=== PATIENT | male | born 1940 | race Caucasian/White ===

== ENCOUNTER → 2017-08-05 | Outpatient (CLI) | payer MEDICARE, OTHER | LOC: OD 07:10 | PROVIDERS: ATTEND Ophthalmology | DX: H02.423 Myogenic ptosis of bilateral eyelids (principal) | CPT/HCPCS: 36415 ==

== ENCOUNTER 2017-09-02 15:11 | Emergency (ER) | payer MEDICARE, OTHER ==
[2017-09-02] MEDS ORDERED: TETANUS/DIPHTHERIA TOX-ADULT 0.5 ML SYR (>=7YO) IM ONE (15:59)
--- NOTE | 2017-09-02 16:58 | RADIOLOGY REPORT (SQ) ---
EXAM DESCRIPTION: FOREARM RIGHT COMPLETED DATE/TIME: 09/02/2017 4:48 pm REASON FOR STUDY: fall r RA swelling COMPARISON: None. NUMBER OF VIEWS: Two views. TECHNIQUE: Two radiographic images acquired of the right forearm, including elbow and wrist in at le ast one projection. LIMITATIONS: None. FINDINGS: MINERALIZATION: Normal. BONES: No acute fracture. No worrisome bone lesions. SOFT TISSUES: Soft tissue swelling is identified at the level of the proximal ulna. OTHER: No other significant finding. IMPRESSION: No evidence for acute fracture or dislocation. Other findings as noted above TECHNICAL DOCUMENTATION: JOB ID: [id number] [employer]- All Rights Reserved
--- NOTE | 2017-09-02 16:59 | RADIOLOGY REPORT (SQ) ---
EXAM DESCRIPTION: ELBOW RIGHT OVER 2 VIEWS COMPLETED DATE/TIME: 09/02/2017 4:48 pm REASON FOR STUDY: fall elbow injury COMPARISON: None. NUMBER OF VIEWS: Four views. TECHNIQUE: AP, lateral, and both oblique radiographic images acquired of the right elbow. LIMITATIONS: None. FINDINGS: MINERALIZATION: Normal. BONES: No acute fracture or dislocation. No worrisome bone lesions. JOINT: No effusion. SOFT TISSUES: There is apparent soft tissue swelling at the level of the proximal ulna. OTHER: No other significant finding. IMPRESSION: No evidence for acute fracture dislocation. There is apparent soft tissue swelling at t he level of the proximal ulna. TECHNICAL DOCUMENTATION: JOB ID: [id number] [employer]- All Rights Reserved
--- NOTE | 2017-09-02 17:12 | ER Document Report ---
HPI - HPI Patient complains to provider of: Right elbow abrasion with forearm swelling Onset: Other - 3 days ago Onset/Duration: Persistent Quality of pain: No pain Pain Level: Denies Context: Patient was walking down a stadium step and fell injuring his right elbow. Patient with an abrasion to the elbow. Patient noticed swelling to the forearm which prompted him to come in to be evaluated. Patient denies any significant tenderness. Patient denies any head injury, loss of consciousness, or any other injury. Associated Symptoms: Other - Right elbow abrasion, right forearm swelling Exacerbated by: Denies Relieved by: Denies Similar symptoms previously: No Recently seen / treated by doctor: No - ROS ROS below otherwise negative: Yes Systems Reviewed and Negative: Yes All other systems reviewed and negative - NEURO Neurology: DENIES: Headache, Weakness - CARDIOVASCULAR Cardiovascular: DENIES: Chest pain - RESPIRATORY Respiratory: DENIES: Trouble Breathing, Coughing - DERM Skin Color: Ecchymosis Notes: Abrasion to right elbow Past Medical History - General Information source: Patient - Social History Smoking Status: Former Smoker Frequency of alcohol use: None Drug Abuse: None Occupation: retired Family History: Reviewed & Not Pertinent - Past Medical History Cardiac Medical History: Reports: Hx Hypercholesterolemia, Hx Hypertension Renal/ Medical History: Denies: Hx Peritoneal Dialysis Past Surgical History: Reports: Hx Orthopedic Surgery - right knee scope - Immunizations Hx Diphtheria, Pertussis, Tetanus Vaccination: Yes - updated today Vertical Provider Document - CONSTITUTIONAL Agree With Documented VS: Yes Exam Limitations: No Limitations General Appearance: WD/WN, No Apparent Distress - INFECTION CONTROL TRAVEL OUTSIDE OF THE [place] IN LAST 30 DAYS: No - HEENT HEENT: Atraumatic, Normocephalic - NECK Neck: Normal Inspection - RESPIRATORY Respiratory: Breath Sounds Normal, No Respiratory Distress O2 Sat by Pulse Oximetry: 94 - CARDIOVASCULAR Cardiovascular: Regular Rate, Regular Rhythm Pulses: Normal: Radial - MUSCULOSKELETAL/EXTREMETIES Musculoskeletal/Extremeties: MAEW, Non-Tender, Edema - 1+ edema to right forearm Notes: Patient with skin tear over lateral aspect of right elbow, patient with soft tissue swelling over bilateral olecranon processes, no concern for bursitis - NEURO Level of Consciousness: Awake, Alert, Appropriate Motor/Sensory: No Motor Deficit - DERM Integumentary: Warm, Dry Adult Front & Back Diagram: 1 - Skin tear Course - Re-evaluation Re-evalutation: 09/02/17 18:41 Skin tear partially debrided, patient tolerated well. - Vital Signs Vital signs: Temp Pulse Resp BP Pulse Ox 98.4 F 66 20 163/91 H 94 09/02/17 15:21 09/02/17 15:21 09/02/17 15:21 09/02/17 15:21 09/02/17 15:21 - Diagnostic Test Radiology reviewed: Image reviewed, Reports reviewed Discharge - Discharge Clinical Impression: Forearm swelling Skin tear of elbow without complication Qualifiers: Encounter type: initial encounter Laterality: right Qualified Code(s): S51.011A - Laceration without foreign body of right elbow, initial encounter Arm contusion Qualifiers: Encounter type: initial encounter Laterality: right Qualified Code(s): S40.021A - Contusion of right upper arm, initial encounter Condition: Stable Disposition: HOME, SELF-CARE Instructions: Contusion ([facility]), Skin Tear ([facility]), Tetanus Immunization Given ([facility] ) Additional Instructions: Return immediately for any new or worsening symptoms Followup with your primary care provider, call tomorrow to make a followup appointment Follow-up with orthopedic doctor for any continued pain or problems Referrals: [facility] [Provider Group] - Follow up as needed
[2017-09-02 18:28] VITALS: BP 148/82
== END 2017-09-02 18:28 | disposition home or self-care (01) ==
LOC: ER 15:11
DX: S51.011A Laceration without foreign body of right elbow, initial encounter (principal); S40.021A Contusion of right upper arm, initial encounter; M79.89 Other specified soft tissue disorders; W10.8XXA Fall (on) (from) other stairs and steps, initial encounter; Y92.39 Other specified sports and athletic area as the place of occurrence of the external cause; Z87.891 Personal history of nicotine dependence; I10 Essential (primary) hypertension
CPT/HCPCS: 90714; 99283

== ENCOUNTER 2020-01-16 14:31 | Emergency (ER) | payer MEDICARE, OTHER ==
--- NOTE | 2020-01-16 14:58 | ER Document Report ---
ED Medical Screen (RME) - General Chief Complaint: Rectal Bleeding Stated Complaint: RECTAL BLEEDING Time Seen by Provider: 01/16/20 14:48 Notes: Patient is a 79-year-old male with a history of hypertension high cholesterol presents emergency department with a chief complaint of rectal bleeding. Patient reports that he had a colonoscopy by what he thinks is in a Dr. Moura, and states that he was told he had a polyp. He is unsure if they removed with the polyp. Patient reports that this morning he had 2 loose stools with a scant amount of bright red blood but was mostly black in color. Patient denies use of blood thinners. Patient reports generalized abdominal cramping. Patient denies vomiting. Patient reports his diet has been very bland since the colonoscopy. TRAVEL OUTSIDE OF THE [place] IN LAST 30 DAYS: No - Related Data Allergies/Adverse Reactions: No Known Allergies Allergy (Verified 01/16/20 14:49) Past Medical History - Social History Chew tobacco use (# tins/day): No Frequency of alcohol use: None Drug Abuse: None - Past Medical History Cardiac Medical History: Reports: Hx Hypercholesterolemia, Hx Hypertension Renal/ Medical History: Denies: Hx Peritoneal Dialysis Past Surgical History: Reports: Hx Orthopedic Surgery - right knee scope - Immunizations Hx Diphtheria, Pertussis, Tetanus Vaccination: Yes - updated today Physical Exam - Vital signs Vitals: Temp Pulse Resp BP Pulse Ox 98.1 F 72 18 174/81 H 97 01/16/20 14:38 01/16/20 14:38 01/16/20 14:38 01/16/20 14:38 01/16/20 14:38 - Abdominal Inspection: Normal Distension: No distension Bowel sounds: Normal Tenderness: Nontender Organomegaly: No organomegaly Course - Re-evaluation Re-evalutation: 01/16/20 14:58 In triage patient is not tachycardic, hypotensive. Patient hemodynamically stable, alert and oriented x4. I have greeted and performed a rapid initial assessment of this patient. A comprehensive ED assessment and evaluation of the patient, analysis of test results and completion of the medical decision making process will be conducted by additional ED providers. - Vital Signs Vital signs: Temp Pulse Resp BP Pulse Ox 98.1 F 72 18 174/81 H 97 01/16/20 14:38 01/16/20 14:38 01/16/20 14:38 01/16/20 14:38 01/16/20 14:38
[2020-01-16 15:29] LABS: ABSOLUTE EOSINOPHILS # (AUTO) 0.1 10^3/uL (0.0-0.6); ABSOLUTE LYMPHOCYTES (AUTO) 1.5 10^3/uL (0.5-4.7); ABSOLUTE MONOCYTES (AUTO) 0.5 10^3/uL (0.1-1.4); ABSOLUTE NEUT (AUTO) 4.3 10^3/uL (1.7-8.2); BASOPHILS % (AUTO) 0.5 % (0-2); EOSINOPHILS % (AUTO) 1.9 % (0-6); HEMATOCRIT 40.1 % (37.9-51.0); HEMOGLOBIN 13.3 g/dL (13.5-17.0); LYMPHOCYTES % (AUTO) 23.2 % (13-45); MEAN CORPUSCULAR HEMOGLOBIN 29.9 pg (27.0-33.4); MEAN CORPUSCULAR HGB CONC 33.2 g/dL (32.0-36.0); MEAN CORPUSCULAR VOLUME 90 fl (80-97); MONOCYTES % (AUTO) 8.1 % (3-13); PLATELET COUNT 190 10^3/uL (150-450); RED BLOOD COUNT 4.45 10^6/uL (4.35-5.55); RED CELL DISTRIBUTION WIDTH 13.9 % (11.5-14.0); SEGMENTED NEUTROPHILS % (AUTO) 66.3 % (42-78); TOTAL CELLS COUNTED % (AUTO) 100 %; WHITE BLOOD COUNT 6.5 10^3/uL (4.0-10.5)
[2020-01-16 15:46] LABS: ALBUMIN 4.4 g/dL (3.5-5.0); ALKALINE PHOSPHATASE 60 U/L (38-126); ANION GAP 10 (5-19); ASPARTATE AMINO TRANSFERASE 28 U/L (17-59); BILIRUBIN,DIRECT 0.1 mg/dL (0.0-0.4); BILIRUBIN,TOTAL 1.1 mg/dL (0.2-1.3); BLOOD UREA NITROGEN 17 mg/dL (7-20); CALCIUM 9.7 mg/dL (8.4-10.2); CARBON DIOXIDE 27 mmol/L (22-30); CHLORIDE 104 mmol/L (98-107); GLUCOSE 99 mg/dL (75-110); POTASSIUM 4.3 mmol/L (3.6-5.0); TOTAL PROTEIN 7.7 g/dL (6.3-8.2)
[2020-01-16 15:54] LABS: APPEARANCE,URINE SLIGHTLY-CLOUDY; BILIRUBIN,URINE NEGATIVE (NEGATIVE); COLOR,URINE YELLOW; GLUCOSE, URINE NEGATIVE (NEGATIVE); KETONES,URINE NEGATIVE (NEGATIVE); LEUKOCYTE ESTERASE,URINE NEGATIVE (NEGATIVE); NITRITE,URINE NEGATIVE (NEGATIVE); PROTEIN,URINE NEGATIVE (NEGATIVE); URINE SPECIFIC GRAVITY 1.018; UROBILINOGEN,URINE NEGATIVE mg/dL (<2.0)
--- NOTE | 2020-01-16 18:12 | ER Document Report ---
ED General - General Chief Complaint: Rectal Bleeding Stated Complaint: RECTAL BLEEDING Time Seen by Provider: 01/16/20 14:48 Primary Care Provider: CRISS RICHMOND FNP [Primary Care Provider] - Follow up in 3-5 days KENDELL MARTINEZ MD [ACTIVE STAFF] - Follow up tomorrow (as scheduled) Notes: 79 y/o male presents for one episode of dark stool earlier today. Pt had spotting prior and had colonoscopy on and possibly had a polyp. Pt states he did not have a BM until this morning and noticed it was dark. Pt states he was scheduled for an appointment tomorrow with Dr. Martinez. Pt denies chest pain, dyspnea, dizziness, syncope, presyncope, nausea/vomiting. TRAVEL OUTSIDE OF THE [place] IN LAST 30 DAYS: No - Related Data Allergies/Adverse Reactions: No Known Allergies Allergy (Verified 01/16/20 14:49) Past Medical History - Social History Smoking Status: Former Smoker Chew tobacco use (# tins/day): No Frequency of alcohol use: None Drug Abuse: None Family History: Reviewed & Not Pertinent Patient has suicidal ideation: No Patient has homicidal ideation: No - Past Medical History Cardiac Medical History: Reports: Hx Hypercholesterolemia, Hx Hypertension Renal/ Medical History: Denies: Hx Peritoneal Dialysis Past Surgical History: Reports: Hx Orthopedic Surgery - right knee scope - Immunizations Hx Diphtheria, Pertussis, Tetanus Vaccination: Yes - updated today Physical Exam - Vital signs Vitals: Temp Pulse Resp BP Pulse Ox 98.1 F 72 18 174/81 H 97 01/16/20 14:38 01/16/20 14:38 01/16/20 14:38 01/16/20 14:38 01/16/20 14:38 Course - Re-evaluation Re-evalutation: 01/16/20 Nontoxic well appearing 79 y/o male presents for one episode of dark stool this morning. Pt had colonoscopy on (3 days ago). Pt states he has an appointment with Dr. Martinez tomorrow (GI doctor did colonoscopy). Pt denies any chest pain, dyspnea, syncope, presyncope, dizziness. Abd soft, nontender. PE is otherwise unremarkable. Pt's hemoglobin is 13.3. HCT WNL. Rest of labwork is reassuring. Discussed all results with pt and pt's . Strict return precautions discussed. Pt encouraged to keep appointment with Dr. Martinez tomorrow. Pt voices understanding and agrees with plan of care. - Vital Signs Vital signs: Temp Pulse Resp BP Pulse Ox 98.6 F 72 18 127/66 H 96 01/16/20 18:01 01/16/20 14:38 01/16/20 18:01 01/16/20 18:01 01/16/20 18:01 - Laboratory Result Diagrams: 01/16/20 15:16 01/16/20 15:16 Laboratory results interpreted by me: 01/16/20 01/16/20 01/16/20 15:16 15:16 15:30 Hgb 13.3 L Est GFR (MDRD) Non-Af 58 L Urine Ascorbic Acid 40 H Discharge - Discharge Clinical Impression: Dark stools, hemoglobin 13.3 Condition: Stable Disposition: HOME, SELF-CARE Additional Instructions: Your hemoglobin was 13.3 today. Please follow up with Dr. Martinez as scheduled tomorrow. Return immediately to ER for any worsening symptoms including worsening dark stools, chest pain, shortness of breath, dizziness, feeling like you're going to pass out, passing out, nausea/vomiting, abdominal pain, fever, or any other symptoms that are concerning to you. Referrals: CRISS RICHMOND FNP [Primary Care Provider] - Follow up in 3-5 days KENDELL MARTINEZ MD [ACTIVE STAFF] - Follow up tomorrow (as scheduled)
[2020-01-16 18:36] VITALS: BP 127/66
== END 2020-01-16 19:07 | disposition home or self-care (01) ==
LOC: ER 14:31
DX: R19.5 Other fecal abnormalities (principal); D58.2 Other hemoglobinopathies; K62.5 Hemorrhage of anus and rectum; Z98.890 Other specified postprocedural states; Z87.891 Personal history of nicotine dependence; I10 Essential (primary) hypertension
CPT/HCPCS: 36415; 80053; 81001; 85025; 86850; 86900; 86901; 99283

== ENCOUNTER 2020-01-20 07:45 | Day surgery (SDC) | payer MEDICARE, OTHER ==
[2020-01-20] MEDS ORDERED: PROPOFOL INJ 200 MG/20 ML VIAL IV ONE (08:29)
--- NOTE | 2020-01-20 09:03 | Operative Report ---
Nonrecallable Operative Report DATE OF SURGERY: 01/20/20 PREOPERATIVE DIAGNOSIS: Rectal mass POSTOPERATIVE DIAGNOSIS: Rectal mass, suspicious for cancer. Mass is situated posteriorly, at approximately the 11 o'clock position. It occupies approximately 20% of the circumferential area of the rectum. It is located approximately 4.5 cm from the dentate line. OPERATION: 1. Flexible sigmoidoscopy. 2. Cold biopsy of rectal mass. SURGEON: KENDELL ETIENNE ANESTHESIA: LMAC TISSUE REMOVED OR ALTERED: biopsy of rectal mass COMPLICATIONS: none apparent ESTIMATED BLOOD LOSS: minimal PROCEDURE: After informed consent was obtained, the patient was brought to the endoscopy suite and laid in the left lateral decubitus position. The endoscope was inserted into the rectum. The prep was good. Immediately, there was noted to be a friable mass with a depressed center in the posterior position, approximately 11:00. The mass is consistent with a rectal cancer. The mass was measured to be approximately 4.5 cm from the dentate line. It appears to occupy approximately 20% of the luminal diameter of the rectum. Multiple biopsies were taken of the rectal mass. Air was then suctioned from the rectum, and the scope was removed. The patient tolerated the procedure well. Condition: Stable.
--- NOTE | 2020-01-20 09:04 | Discharge Summary ---
Discharge Summary (SDC) - Discharge Final Diagnosis: Rectal cancer Date of Surgery: 01/20/20 Discharge Date: 01/20/20 Condition: Stable Treatment or Instructions: Discharge home. Diet as tolerated. Activity: Nonstrenuous. Follow-up with me in 7 days. Referrals: CRISS RICHMOND FNP [Primary Care Provider] - Discharge Diet: As Tolerated Respiratory Treatments at Home: Deep Breathing/Coughing, Incentive Spirometer Discharge Activity: Activity As Tolerated, Balance Activity w/Rest Home Care Assistance: None Needed Report the Following to Your Physician Immediately: Shortness of Breath, Nausea, Vomiting, Increase in Pain, Fever over 101 Degrees, Unusual Bleeding, Redness
[2020-01-20 09:28] VITALS: BP 125/73
== END 2020-01-20 09:30 | disposition home or self-care (01) ==
LOC: END 07:45
PROVIDERS: ATTEND Surgery
DX: C20 Malignant neoplasm of rectum (principal); I10 Essential (primary) hypertension; E78.00 Pure hypercholesterolemia, unspecified; Z87.891 Personal history of nicotine dependence; Z79.899 Other long term (current) drug therapy
CPT/HCPCS: 45331; 88305 ×2; 00811; J2704; 811

== ENCOUNTER → 2020-01-25 | Outpatient (CLI) | payer MEDICARE, OTHER ==
--- NOTE | 2020-01-25 13:27 | RADIOLOGY REPORT (SQ) ---
EXAM DESCRIPTION: MRI PELVIS COMBO COMPLETED DATE/TIME: 01/25/2020 REASON FOR STUDY: RECTAL CA (C20) C20 MALIGNANT NEOPLASM OF RECTUM COMPARISON: None. TECHNIQUE: Sagittal, axial oblique, and coronal oblique T2-weighted images of the pelvis without con trast centered on the rectum. Axial images of the pelvis. FINDINGS: BRIEF DESCRIPTION OF MASS: Posterior rectal wall almost circumferential, sparing the anter ior most edge. LOCATION OF TUMOR: Posterior rectal wall, close to the anal rectal junction DISTANCE FROM ANORECTAL JUNCTION TO LOWER POLE OF TUMOR: Less than 5 mm CIRCUMFERENTIAL LOCATION OF TUMOR: Near circumferential, sparing the anterior wall LENGTH OF TUMOR: 3 cm, best shown on sagittal T2 image 16. INVOLVEMENT OF MUSCULARIS PROPIA: No. EXTENSION BEYOND MUSCULARIS PROPIA: Not applicable. DISTANCE BETWEEN TUMOR AND MESORECTAL FASCIA: 2.5 cm PATHOLOGIC LYMPH NODES: Several small lymph nodes are present in the mesial rectal fat as follows: 8 mm lymph node left perirectal fat axial image 16/38 7 mm lymph node left perirectal fat axial image 12/38 7.5 mm right perirectal fat lymph node axial image 15/8 EXTRAMURAL/VASCULAR INVASION: No. DESCRIPTION: Not applicable. INVASION OF PELVIC STRUCTURES: No. DESCRIPTION: Not applicable. There is incidental finding of a 1.9 x 1.4 cm nodule in the peripheral zone of the prostate to the le ft of midline, which is dark on T2, has restricted diffusion, and subtle contrast enhancement. This is worrisome for malignancy in best shown on axial T2 image 16/30. Remainder of the images demonstrates sigmoid colon diverticulosis without acute inflammation. IMPRESSION: T STAGE: T2 Tumor invades but does not penetrate muscularis propria N STAGE: N1 1-3 pathologic lymph nodes TECHNICAL DOCUMENTATION: JOB ID: [id number] 2010 [employer]- All Rights Reserved Reading location - IP/workstation name: [email or web address]
== END ==
LOC: RAD 06:47
PROVIDERS: ATTEND Surgery
DX: C20 Malignant neoplasm of rectum (principal)
CPT/HCPCS: 72197; A9576

== ENCOUNTER → 2020-01-28 | Outpatient (CLI) | payer MEDICARE, OTHER ==
--- NOTE | 2020-01-28 10:07 | RADIOLOGY REPORT (SQ) ---
EXAM DESCRIPTION: CT CHEST WITH COMPLETED DATE/TIME: 01/28/2020 9:31 am REASON FOR STUDY: C20 MALIGNANT NEOPLASM OF RECTUM C20 MALIGNANT NEOPLASM OF RECTUM COMPARISON: None. TECHNIQUE: CT scan of the chest performed using helical scanning technique with dynamic intravenous contrast injection. Images reviewed with lung, soft tissue and bone windows. Reconstructed coronal and sagittal MPR and MIP images reviewed. All images stored on PACS. All CT scanners at this facility use dose modulation, iterative reconstruction, and/or weight based d osing when appropriate to reduce radiation dose to as low as reasonably achievable (ALARA). [facility]: Dose Right [facility]: CareDose [facility]: Dose Right [facility]: Teradose 4D [facility]: Adometry [employer] CONTRAST TYPE AND DOSE: See abdomen RENAL FUNCTION: See abdomen RADIATION DOSE: . LIMITATIONS: None. FINDINGS: LUNGS AND PLEURA: No discrete suspicious nodules or masses. Mild dependent hypoventilator y change. Mild upper lobe centrilobular emphysema. No pleural effusion or pneumothorax. Incidental ly noted azygos fissure. HILAR AND MEDIASTINAL STRUCTURES: No identified masses or abnormal nodes. HEART AND VASCULAR STRUCTURES: No aneurysm or dissection. Scattered aortic atherosclerosis. Heavy t hree-vessel coronary atherosclerosis. Trace pericardial effusion. HARDWARE: None in the chest. UPPER ABDOMEN: See separate report of the CT of the abdomen. THYROID AND OTHER SOFT TISSUES: No masses. No adenopathy. BONES: No significant finding. OTHER: No other significant finding. IMPRESSION: 1. No evidence of intrathoracic metastatic disease. 2. Heavy three-vessel coronary atherosclerosis. Additional chronic findings as above. TECHNICAL DOCUMENTATION: JOB ID: [id number] Quality ID # [id number]: Final reports with documentation of one or more dose reduction techniques (e.g., Au tomated exposure control, adjustment of the mA and/or kV according to patient size, use of iterative reconstruction technique) 2010 [employer]- All Rights Reserved Reading location - IP/workstation name: [email or web address]
--- NOTE | 2020-01-28 10:24 | RADIOLOGY REPORT (SQ) ---
EXAM DESCRIPTION: CT ABD/PELVIS WITH IV ORAL COMPLETED DATE/TIME: 01/28/2020 9:31 am REASON FOR STUDY: C20 MALIGNANT NEOPLASM OF RECTUM C20 MALIGNANT NEOPLASM OF RECTUM COMPARISON: MRI 01/25/2020. TECHNIQUE: CT scan of the abdomen and pelvis performed using helical scanning technique with dynamic intravenous contrast injection. Patient was given oral contrast. Images reviewed with lung, soft ti ssue, and bone windows. Reconstructed coronal and sagittal MPR images reviewed. Delayed images for ev aluation of the urinary system also acquired. All images stored on PACS. All CT scanners at this facility use dose modulation, iterative reconstruction, and/or weight based d osing when appropriate to reduce radiation dose to as low as reasonably achievable (ALARA). [facility]: Dose Right [facility]: CareDose [facility]: Dose Right [facility]: Teradose 4D [facility]: [employer] CONTRAST TYPE AND DOSE: contrast/concentration: Isovue 350.00 mg/ml; Total Contrast Delivered: 86.0 ml; Total Saline Delivered: 69.0 ml RENAL FUNCTION: Creatinine 1.21 RADIATION DOSE: CT Rad equipment meets quality standard of care and radiation dose reduction techniq ues were employed. CTDIvol: 5.4 - 7.0 mGy. DLP: 941 mGy-cm.. LIMITATIONS: None. FINDINGS: LOWER CHEST: See separate report of the CT of the chest. LIVER: Normal size. No masses. Right lobe cyst. No dilated ducts. SPLEEN: Normal size. No focal lesions. PANCREAS: No masses. No significant calcifications. No adjacent inflammation or peripancreatic fluid collections. Pancreatic duct not dilated. GALLBLADDER: No identified stones by CT criteria. No inflammatory changes to suggest cholecystitis. ADRENAL GLANDS: No significant masses or asymmetry. RIGHT KIDNEY AND URETER: No solid masses. Multiple right renal cysts, largest measuring 7.9 cm. No significant calcifications. No hydronephrosis or hydroureter. LEFT KIDNEY AND URETER: No solid masses. No significant calcifications. No hydronephrosis or hydr oureter. AORTA AND VESSELS: Aortoiliac atherosclerosis without aneurysm. No dissection. Renal arteries, SMA, c eliac without stenosis. RETROPERITONEUM: No retroperitoneal adenopathy, hemorrhage or masses. BOWEL AND PERITONEAL CAVITY: Known rectal lesion not well evaluated. Scattered colonic diverticula. No additional focal bowel wall thickening appreciated. No free fluid or intraperitoneal gas. APPENDIX: Normal. PELVIS: Unremarkable urinary bladder. Marked prostatomegaly measuring 7.6 cm transversely. Mild asy mmetric thickening of the left seminal vesicles. No discrete adenopathy. Few perirectal lymph nodes , better evaluated on prior MRI ABDOMINAL WALL: No masses. Fat containing inguinal hernias. BONES: No acute bony abnormality. No suspicious osseous lesions. Lower lumbar facet arthropathy. OTHER: No other significant finding. IMPRESSION: 1. No evidence of metastatic disease within the abdomen or pelvis. Known rectal mass b sharon evaluated on prior MRI. 2. Marked prostatomegaly measuring 7.6 cm with mild asymmetric thickening of the left seminal vesicl es. 3. Additional chronic findings as above. TECHNICAL DOCUMENTATION: JOB ID: [id number] Quality ID # [id number]: Final reports with documentation of one or more dose reduction techniques (e.g., Au tomated exposure control, adjustment of the mA and/or kV according to patient size, use of iterative reconstruction technique) 2010 [employer]- All Rights Reserved Reading location - IP/workstation name: [email or web address]
== END ==
LOC: RAD 08:47
PROVIDERS: ATTEND Surgery
DX: C20 Malignant neoplasm of rectum (principal); I25.10 Atherosclerotic heart disease of native coronary artery without angina pectoris
CPT/HCPCS: 71260; 74177

== ENCOUNTER → 2020-02-08 | Outpatient (CLI) | payer MEDICARE, OTHER ==
--- NOTE | 2020-02-08 13:34 | RADIOLOGY REPORT (SQ) ---
EXAM DESCRIPTION: PET CT SKULL/THIGH COMPLETED DATE/TIME: 02/08/2020 12:38 pm REASON FOR STUDY: (C20)MALIGNANT NEOPLASM OF RECTUM C20 MALIGNANT NEOPLASM OF RECTUM COMPARISON: None. Correlation: CT chest abdomen pelvis 01/28/2020. RADIONUCLIDE AND DOSE: 10.51 mCi F18 FDG The route of agent administration: Intravenous FASTING BLOOD SUGAR: 92 mg/dl CONTRAST TYPE AND DOSE: No CT contrast given. TECHNIQUE: Blood glucose level was verified. Above dose of FDG was injected intravenously. 2-D seg mented attenuation correction images were obtained from the base of the skull to the midthighs. Nonc ontrast CT images were obtained for attenuation correction and fusion with emission images. CT image s were performed without oral or intravenous contrast and are not sensitive for parenchymal lesions. A series of overlapping emission PET images were obtained. Images reviewed and manipulated at [facility] work station by the radiologist. Images stored on PACS. LIMITATIONS: None. FINDINGS: HEAD AND NECK: No areas of abnormal metabolic activity in the soft tissues of the head and neck. CHEST: No areas of abnormal metabolic activity in the chest. ABDOMEN AND PELVIS: Hypermetabolic rectal mass 6.9 SUV. No other hypermetabolic lesions. PROXIMAL LOWER EXTREMITIES: No areas of abnormal metabolic activity in the soft tissues of the lower extremities. BONES: No abnormal metabolic activity in the visualized skeleton. ADDITIONAL CT FINDINGS: See recent CT chest abdomen pelvis. OTHER: Blood pool 1.7 SUV. Liver background 2.3 SUV. IMPRESSION: Hypermetabolic rectal mass. No evidence of metastatic disease. TECHNICAL DOCUMENTATION: JOB ID: [id number] 2010 [employer]- All Rights Reserved Reading location - IP/workstation name: [email or web address]
== END ==
LOC: RAD 08:52
PROVIDERS: ATTEND Internal Medicine
DX: C20 Malignant neoplasm of rectum (principal)
CPT/HCPCS: 78815; A9552

== ENCOUNTER 2020-08-14 11:18 | Observation (INO) | payer MEDICARE, OTHER ==
--- NOTE | 2020-08-14 13:11 | RADIOLOGY REPORT (SQ) ---
EXAM DESCRIPTION: CT HEAD WITHOUT IMAGES COMPLETED DATE/TIME: 08/14/2020 12:47 pm REASON FOR STUDY: AMS COMPARISON: None. TECHNIQUE: Axial images acquired through the brain without intravenous contrast. Images reviewed wi th bone, brain and subdural windows. Additional sagittal and coronal reconstructions were generated. Images stored on PACS. All CT scanners at this facility use dose modulation, iterative reconstruction, and/or weight based d osing when appropriate to reduce radiation dose to as low as reasonably achievable (ALARA). [facility]: Dose Right [facility]: CareDose [facility]: Dose Right [facility]: Teradose 4D [facility]: [employer] RADIATION DOSE: CT Rad equipment meets quality standard of care and radiation dose reduction techniq ues were employed. CTDIvol: 53.2 mGy. DLP: 991 mGy-cm. LIMITATIONS: None. FINDINGS: There is diffuse age-appropriate cerebral and cerebellar volume loss. The caliber of the ventricles is concordant with the degree of sulcation. There is no acute intracranial hemorrhage, va scular territorial infarct, extra-axial fluid collection, mass effect or midline shift. The mayo-whi te matter differentiation is preserved. There is no effacement of the cerebral sulci or basal subarac hnoid cisterns. The polypoid low-attenuation lesion in the floor of the left maxillary sinus could represent a mucous retention cyst. The orbits and globes are intact. There is no fracture of the calvarium. IMPRESSION: No acute intracranial abnormality. EVIDENCE OF ACUTE STROKE: NO. COMMENT: Quality ID # [id number]: Final reports with documentation of one or more dose reduction techniques (e.g., Automated exposure control, adjustment of the mA and/or kV according to patient size, use of iterative reconstruction technique) TECHNICAL DOCUMENTATION: JOB ID: [id number] 2010 [employer]- All Rights Reserved Reading location - IP/workstation name: [email or web address]
--- NOTE | 2020-08-14 13:22 | RADIOLOGY REPORT (SQ) ---
EXAM DESCRIPTION: CHEST 2 VIEWS IMAGES COMPLETED DATE/TIME: 08/14/2020 1:13 pm REASON FOR STUDY: confusion; on chemotherapy COMPARISON: CT of the chest from 01/28/2020. EXAM PARAMETERS: NUMBER OF VIEWS: Two views. TECHNIQUE: PA and lateral views of the chest were obtained. RADIATION DOSE: NA LIMITATIONS: None. FINDINGS: LUNGS AND PLEURA: Variant azygos fissure. There is no consolidation, pleural effusion or pneumothorax. MEDIASTINUM AND HILAR STRUCTURES: No mediastinal or hilar contour abnormality. HEART AND VASCULAR STRUCTURES: The cardiac silhouette and pulmonary vasculature are within normal hannon its. BONES: Dextroconvex curvature of the thoracic spine. HARDWARE: None in the chest. OTHER: No other finding. IMPRESSION: No acute cardiopulmonary process. TECHNICAL DOCUMENTATION: JOB ID: [id number] 2010 [employer]- All Rights Reserved Reading location - IP/workstation name: [email or web address]
[2020-08-14] MEDS ORDERED: NORMAL SALINE 1000 ML 1,000 ML IV ONE (13:43)
[2020-08-14] MEDS ORDERED: MAGNESIUM SULFATE/D5W 1 GM/100 ML RTUPB IV ONE (13:46)
--- NOTE | 2020-08-14 13:46 | ER Document Report ---
ED Medical Screen (RME) - General Chief Complaint: General Weakness Stated Complaint: CONFUSION,ABNORMAL LABS Time Seen by Provider: 08/14/20 12:11 Primary Care Provider: RAZA BASURTO MD [Primary Care Provider] - Follow up as needed Notes: Patient is a 79-year-old male presents emergency department with a chief complaint of confusion. Patient has a chemotherapy patient. According to the son, he has had diarrhea for the past 2 weeks. He started to become confused this past weekend. Exam: Slight confusion noted. I have greeted and performed a rapid initial assessment of this patient. A comprehensive ED assessment and evaluation of the patient, analysis of test results and completion of medical decision making process will be conducted by an additional ED providers. TRAVEL OUTSIDE OF THE [place] IN LAST 30 DAYS: No - Related Data Allergies/Adverse Reactions: No Known Allergies Allergy (Verified 08/14/20 12:13) Home Medications: LISINOPRIL. STATIN. FLOMAX. ZOLPIDEM Past Medical History - Social History Chew tobacco use (# tins/day): No Frequency of alcohol use: None Drug Abuse: None - Past Medical History Cardiac Medical History: Reports: Hx Hypercholesterolemia, Hx Hypertension Denies: Hx Coronary Artery Disease, Hx Heart Attack Pulmonary Medical History: Denies: Hx Asthma, Hx Bronchitis, Hx COPD, Hx Pneumonia Neurological Medical History: Denies: Hx Cerebrovascular Accident, Hx Seizures Renal/ Medical History: Denies: Hx Peritoneal Dialysis Musculoskeltal Medical History: Denies Hx Arthritis Past Surgical History: Reports: Hx Orthopedic Surgery - right knee scope - Immunizations Hx Diphtheria, Pertussis, Tetanus Vaccination: Yes - updated today Physical Exam - Vital signs Vitals: Temp Pulse Resp BP Pulse Ox 98.2 F 88 18 111/77 95 08/14/20 11:32 08/14/20 11:32 08/14/20 11:32 08/14/20 11:32 08/14/20 11:32 Course - Vital Signs Vital signs: Temp Pulse Resp BP Pulse Ox 98.2 F 88 18 111/77 95 08/14/20 12:13 08/14/20 11:32 08/14/20 11:32 08/14/20 11:32 08/14/20 11:32 Doctor's Discharge - Discharge Referrals: RAZA BASURTO MD [Primary Care Provider] - Follow up as needed
[2020-08-14 14:54] LABS: HEMOGLOBIN 12.7 g/dL (13.5-17.0); MEAN CORPUSCULAR HEMOGLOBIN 31.7 pg (27.0-33.4); MEAN CORPUSCULAR HGB CONC 34.3 g/dL (32.0-36.0); MEAN CORPUSCULAR VOLUME 92 fl (80-97); RED BLOOD COUNT 4.01 10^6/uL (4.35-5.55); RED CELL DISTRIBUTION WIDTH 13.7 % (11.5-14.0)
[2020-08-14 15:11] LABS: ALBUMIN 3.6 g/dL (3.5-5.0); ALKALINE PHOSPHATASE 61 U/L (38-126); ANION GAP 12 (5-19); ASPARTATE AMINO TRANSFERASE 36 U/L (17-59); BILIRUBIN,DIRECT 0.4 mg/dL (0.0-0.4); BILIRUBIN,TOTAL 1.8 mg/dL (0.2-1.3); BLOOD UREA NITROGEN 33 mg/dL (7-20); CALCIUM 9.3 mg/dL (8.4-10.2); CARBON DIOXIDE 22 mmol/L (22-30); CHLORIDE 107 mmol/L (98-107); GLUCOSE 124 mg/dL (75-110); TOTAL PROTEIN 6.3 g/dL (6.3-8.2)
[2020-08-14 15:12] LABS: POTASSIUM 3.1 mmol/L (3.6-5.0)
[2020-08-14 15:16] LABS: ABSOLUTE LYMPHOCYTES# (MANUAL) 0.3 10^3/uL (0.5-4.7); ABSOLUTE MONOCYTES # (MANUAL) 1.1 10^3/uL (0.1-1.4); BASOPHILS % (MANUAL) 0 % (0-2); EOSINOPHILS % (MANUAL) 0 % (0-6); LYMPHOCYTES % (MANUAL) 8 % (13-45); SEGMENTED NEUTROPHILS % (MAN) 65 % (42-78); TOTAL CELLS COUNTED 100
[2020-08-14 15:20] LABS: PLATELET COMMENT ADEQUATE
[2020-08-14 15:23] LABS: PLATELET COUNT 126 10^3/uL (150-450)
[2020-08-14 15:28] LABS: MONOCYTES % (MANUAL) 27 % (3-13)
[2020-08-14] MEDS: POTASSI CL 20 MEQ/50 ML RIDER 20 MEQ/50 ML RTUPB IV SCH ×2 (15:31→17:34)
--- NOTE | 2020-08-14 15:59 | ER Document Report ---
ED General - General Chief Complaint: General Weakness Stated Complaint: CONFUSION,ABNORMAL LABS Time Seen by Provider: 08/14/20 12:11 Primary Care Provider: RAZA BASURTO MD [ACTIVE STAFF] - Follow up as needed Mode of Arrival: Ambulatory Information source: Patient TRAVEL OUTSIDE OF THE [place] IN LAST 30 DAYS: No - HPI Notes: Patient presents complaining of weakness. According to reports of the son who is in the room patient woke up this morning and was confused. He apparently thought he heard an intruder and had a gun. At that time the was called. was able to talk the patient down and have him give up the gun. then called the patient's son who brought the patient to the emergency department. Patient states he does not feel that he was confused and that he remembers being awake and feeling weak. He states he thought that he heard an intruder which is why he pulled the gun. The entire story is somewhat difficult to piece together. There was apparently some confusion on the patient's part which is why he was brought to the hospital. Patient states that he no longer feels confused and the son who is in the room states that his father is no longer acting confused. The son states that initially he took the patient to the oncologist office this morning where some laboratories were done and then the patient was instructed to come to the hospital. I did call and speak with the patient's oncologist who states that according to the laboratories that were done at his office the patient appears dehydrated, the patient has not been eating or drinking well the last couple of days, and the patient has chronic diarrhea that is been acutely exacerbated by a recent chemo administration. The primary oncologist felt the patient need to be admitted for rehydration. Patient symptoms of confusion and dehydration appear to have been intermittent. Nothing appears to have made them significantly better or worse. Obviously the symptoms of confusion did not radiate. They appear to have been moderate to severe. - Related Data Allergies/Adverse Reactions: No Known Allergies Allergy (Verified 08/14/20 12:13) Home Medications: LISINOPRIL. STATIN. FLOMAX. ZOLPIDEM Past Medical History - General Information source: Patient - Social History Smoking Status: Former Smoker Chew tobacco use (# tins/day): No Frequency of alcohol use: None Drug Abuse: None Family History: Reviewed & Not Pertinent Patient has homicidal ideation: No - Past Medical History Cardiac Medical History: Reports: Hx Hypercholesterolemia, Hx Hypertension Denies: Hx Coronary Artery Disease, Hx Heart Attack Pulmonary Medical History: Denies: Hx Asthma, Hx Bronchitis, Hx COPD, Hx Pneumonia Neurological Medical History: Denies: Hx Cerebrovascular Accident, Hx Seizures Renal/ Medical History: Denies: Hx Peritoneal Dialysis Musculoskeletal Medical History: Denies Hx Arthritis Past Surgical History: Reports: Hx Orthopedic Surgery - right knee scope - Immunizations Hx Diphtheria, Pertussis, Tetanus Vaccination: Yes - updated today Review of Systems - Review of Systems Constitutional: denies: Chills, Fever Cardiovascular: denies: Chest pain, Palpitations Respiratory: denies: Cough, Short of breath -: Yes All other systems reviewed and negative Physical Exam - Vital signs Vitals: Temp Pulse Resp BP Pulse Ox 98.2 F 88 18 111/77 95 08/14/20 11:32 08/14/20 11:32 08/14/20 11:32 08/14/20 11:32 08/14/20 11:32 Interpretation: Normal - General General appearance: Appears well, Alert - HEENT Head: Normocephalic, Atraumatic Eyes: Normal Pupils: PERRL - Respiratory Respiratory status: No respiratory distress Chest status: Nontender Breath sounds: Normal Chest palpation: Normal - Cardiovascular Rhythm: Regular Heart sounds: Normal auscultation Murmur: No - Abdominal Inspection: Normal Distension: No distension Bowel sounds: Normal Tenderness: Nontender Organomegaly: No organomegaly - Back Back: Normal, Nontender - Extremities General upper extremity: Normal inspection, Nontender, Normal color, Normal ROM, Normal temperature General lower extremity: Normal inspection, Nontender, Normal color, Normal ROM, Normal temperature, Normal weight bearing. No: Rneay's sign - Neurological Neuro grossly intact: Yes Cognition: Normal Orientation: AAOx4 Reynaldo Coma Scale Eye Opening: Spontaneous Reynaldo Coma Scale Verbal: Oriented Reynaldo Coma Scale Motor: Obeys Commands [place] Coma Scale Total: 15 Speech: Normal Cranial nerves: Normal Cerebellar coordination: Normal Motor strength normal: LUE, RUE, LLE, RLE Sensory: Normal - Psychological Associated symptoms: Normal affect, Normal mood - Skin Skin Temperature: Warm Skin Moisture: Dry Skin Color: Normal Course - Re-evaluation Re-evalutation: 08/14/20 16:02 Patient presents with some confusion and altered mental status most likely secondary to dehydration. He appears to have had significant resolution of symptoms but still remains dehydrated. In discussion with the patient's primary oncologist it is felt the patient would be best served by admission for rehydration and electrolyte replacement. - Vital Signs Vital signs: Temp Pulse Resp BP Pulse Ox 98.2 F 88 18 111/77 93 08/14/20 12:13 08/14/20 11:32 08/14/20 11:32 08/14/20 11:32 08/14/20 14:11 - Laboratory Result Diagrams: 08/14/20 14:30 08/14/20 14:30 Laboratory results interpreted by me: 08/14/20 08/14/20 14:30 14:30 RBC 4.01 L Hgb 12.7 L Hct 37.0 L Plt Count 126 L Lymphocytes % (Manual) 8 L Monocytes % (Manual) 27 H Abs Lymphs (Manual) 0.3 L Potassium 3.1 L BUN 33 H Creatinine 1.87 H Est GFR ( Amer) 42 L Est GFR (MDRD) Non-Af 35 L Glucose 124 H Total Bilirubin 1.8 H - Diagnostic Test Radiology reviewed: Image reviewed, Reports reviewed - EKG Interpretation by Me Rate: Normal - 70 Rhythm: PVC's, Other - WAP When compared to previous EKG there are: Changes noted Discharge - Discharge Clinical Impression: Confusion, Dehydration, Hypokalemia, Hypomagnesemia Condition: Serious Disposition: ADMITTED INPATIENT Admitting Provider: Dl (Hospitalist) Unit Admitted: Telemetry Referrals: RAZA BASURTO MD [ACTIVE STAFF] - Follow up as needed
[2020-08-14 16:02] LABS: INTERNATIONAL RATION (INR) 1.34; PROTHROMBIN TIME 16.7 SEC (11.4-15.4)
[2020-08-14 16:03] LABS: PARTIAL THROMBOPLASTIN TIME 32.3 SEC (23.5-35.8)
[2020-08-14] MEDS ORDERED: ACETAMINOPHEN 325 MG TABLET PO PRN (17:09)
[2020-08-14] MEDS ORDERED: MAG HYDROX/AL HYDROX/SIMETH SUSP 30 ML UDCUP PO PRN (17:09)
[2020-08-14] MEDS ORDERED: ONDANSETRON HCL INJ/PF 4 MG/2 ML SDV IV PRN (17:09)
[2020-08-14] MEDS ORDERED: POTASSIUM CHLORIDE 10 MEQ TABLET.ER PO ONE (17:30)
[2020-08-14] MEDS: RINGERS SOLUTION,LACTATED 1,000 ML IV PRN (17:34)
[2020-08-14] MEDS ORDERED: MORPHINE SULFATE 10 MG/ML INJ IV PRN (17:45)
[2020-08-14 17:47] LABS: APPEARANCE,URINE SLIGHTLY-CLOUDY; BILIRUBIN,URINE NEGATIVE (NEGATIVE); COLOR,URINE AMBER; GLUCOSE, URINE NEGATIVE (NEGATIVE); KETONES,URINE NEGATIVE (NEGATIVE); PROTEIN,URINE 30 mg/dL (NEGATIVE); URINE SPECIFIC GRAVITY 1.024; UROBILINOGEN,URINE NEGATIVE mg/dL (<2.0)
--- NOTE | 2020-08-14 17:49 | PDOC H&P ---
History of Present Illness Admission Date/PCP: 08/14/20 16:23 JOCELYNE MCDERMOTT PA-C Patient complains of: Abnormal labs History of Present Illness: LING DENNIS is a 79 year old male with colorectal cancer currently on chemo, who presents to the hospital on referral from the oncology clinic for evaluation of abnormal labs and dehydration. Notably this morning, patient states he heard some voices in the living room, he went out to the living room and saw that his at on the TV up loud. Went back to his room and later noted that he was hearing a man and a woman's voice outside. He grabbed his gun and went to confront the person and realized that he was the college or university business manager. He was talked down by the college or university business manager and then his son was notified. He was taken to the oncology clinic for his appointment and labs that were abnormal showing low potassium and elevated renal function. Subsequently sent to the ER for IV fluid hydration. On discussion with patient, patient states that he has been having several bouts of diarrhea up to 5 times a day and has been having decreased appetite. He has not wanted to eat much due to the diarrhea. He also does get some epigastric pain. He denies any fever or chills. Past Medical History Cardiac Medical History: Reports: Hyperlipidema, Hypertension Denies: Coronary Artery Disease, Myocardial Infarction Pulmonary Medical History: Denies: Asthma, Bronchitis, Chronic Obstructive Pulmonary Disease (COPD), Pneumonia Neurological Medical History: Denies: Seizures Musculoskeltal Medical History: Denies: Arthritis Hematology: Denies: Anemia Past Surgical History Past Surgical History: Reports: Orthopedic Surgery - right knee scope Social History Information Source: Patient Smoking Status: Former Smoker Electronic Cigarette use?: No Frequency of Alcohol Use: None Hx Recreational Drug Use: No Hx Prescription Drug Abuse: No - Advance Directive Resuscitation Status: Full Code Family History Family History: Reviewed & Not Pertinent, Hypertension Parental Family History Reviewed: Yes Children Family History Reviewed: NA Sibling(s) Family History Reviewed.: NA Medication/Allergy Home Medications: Lisinopril 5 mg PO DAILY 04/25/13 Multivitamin [Multiple Vitamins] 1 each PO DAILY 04/25/13 Rosuvastatin Calcium [Crestor 10 mg Tablet] 10 mg PO QHS 04/25/13 Allergies/Adverse Reactions: No Known Allergies Allergy (Verified 08/14/20 12:13) Review of Systems Constitutional: ABSENT: fatigue, fever(s) Eyes: ABSENT: visual disturbances Ears: ABSENT: hearing changes Nose, Mouth, and Throat: ABSENT: headache(s) Cardiovascular: ABSENT: chest pain Respiratory: ABSENT: dyspnea Gastrointestinal: PRESENT: abdominal pain, diarrhea, nausea. ABSENT: constipation, vomiting Genitourinary: ABSENT: dysuria Musculoskeletal: ABSENT: back pain Integumentary: ABSENT: diaphoresis Neurological: PRESENT: dizziness Endocrine: ABSENT: polyuria Physical Exam Vital Signs: Temp Pulse Resp BP Pulse Ox 98.2 F 88 13 137/76 H 98 08/14/20 12:13 08/14/20 11:32 08/14/20 16:10 08/14/20 16:10 08/14/20 16:10 Intake & Output 08/13/20 08/14/20 08/15/20 06:59 06:59 06:59 Weight 67.132 kg General appearance: PRESENT: no acute distress, cooperative Head exam: PRESENT: normocephalic Eye exam: PRESENT: EOMI, PERRLA. ABSENT: scleral icterus Neck exam: ABSENT: JVD Respiratory exam: PRESENT: clear to auscultation darvin, symmetrical, unlabored. ABSENT: tachypnea, wheezes Cardiovascular exam: PRESENT: RRR, +S1, +S2. ABSENT: tachycardia GI/Abdominal exam: PRESENT: soft. ABSENT: rebound, rigid, tenderness Extremities exam: ABSENT: calf tenderness, pedal edema Neurological exam: PRESENT: alert, awake, oriented to person, oriented to place, oriented to time, oriented to situation Psychiatric exam: PRESENT: appropriate affect. ABSENT: agitated, anxious, depressed, unusual affect Focused psych exam: ABSENT: flight of ideas, internal stimuli, pressured speech, psychomotor agitation Skin exam: ABSENT: jaundice Results Laboratory Results: 08/14/20 14:30 08/14/20 14:30 08/14/20 08/14/20 08/14/20 14:30 14:30 14:30 WBC 4.0 RBC 4.01 L Hgb 12.7 L Hct 37.0 L MCV 92 MCH 31.7 MCHC 34.3 RDW 13.7 Plt Count 126 L Seg Neutrophils % Not Reportable Sodium 141.4 Potassium 3.1 L Chloride 107 Carbon Dioxide 22 Anion Gap 12 BUN 33 H Creatinine 1.87 H Est GFR ( Amer) 42 L Glucose 124 H Calcium 9.3 Magnesium 1.9 Total Bilirubin 1.8 H AST 36 Alkaline Phosphatase 61 Total Protein 6.3 Albumin 3.6 Impressions: Chest X-Ray 08/14/20 12:21 IMPRESSION: No acute cardiopulmonary process. Head CT 08/14/20 12:22 IMPRESSION: No acute intracranial abnormality. EVIDENCE OF ACUTE STROKE: NO. Assessment and Plan - Diagnosis (1) LUCIA (acute kidney injury) Is this a current diagnosis for this admission?: Yes Plan: We will give IV fluids and recheck BMP in the morning. Creatinine is 1.8 today. Suspect is secondary to dehydration. (2) Diarrhea Qualifiers: Diarrhea type: unspecified type Qualified Code(s): R19.7 - Diarrhea, unspecified Is this a current diagnosis for this admission?: Yes Plan: We will cheCK stool analysis and C. difficile. This may be functional secondary to chemotherapy. IV fluids. (3) Hypokalemia Is this a current diagnosis for this admission?: Yes Plan: Replete with KCl IV and p.o. recheck levels (4) Colorectal cancer, stage I Is this a current diagnosis for this admission?: Yes Plan: Patient once he has history of stage I colorectal cancer diagnosed earlier this year in January. Opted for chemotherapy as opposed to surgical resection. Received radiation earlier in the year and currently receiving chemo. Last regimen of chemo was last week. Follows with Dr. Ambriz who has been consulted. Patient encouraged on good nutritional intake. Dietitian will be consulted as well Pain control as needed. - Time Time Spent with patient: 35 or more minutes Anticipated Discharge Disposition: Home, Self Care Anticipated Discharge Timeframe: within 48 hours
--- NOTE | 2020-08-14 17:50 | EKG REPORT ---
SEVERITY:- ABNORMAL ECG - SINUS RHYTHM NONSPECIFIC T ABNORMALITIES, INFERIOR LEADS : Confirmed by: Elton Ch MD 14-Aug-2020 17:50:09
[2020-08-14 20:55] LABS: C DIFFICILE GDH NEGATIVE (NEGATIVE)
[2020-08-14] MEDS: HEPARIN SOD (PORCINE) 5,000 UNIT/ML 1 ML VIAL SUBCUT SCH (21:12)
[2020-08-14] MEDS: FAMOTIDINE INJ/PF 20 MG/2 ML SDV IV SCH (21:42)
[2020-08-14] MEDS ORDERED: LISINOPRIL 10 MG TABLET PO ONE (22:15)
[2020-08-14] MEDS: ZOLPIDEM TARTRATE 5 MG TABLET PO PRN (22:46)
[2020-08-14] MEDS: ATORVASTATIN CALCIUM 20 MG TABLET PO SCH (22:46)
[2020-08-15] MEDS: HEPARIN SOD (PORCINE) 5,000 UNIT/ML 1 ML VIAL SUBCUT SCH ×3 (05:32→21:35)
[2020-08-15] MEDS: RINGERS SOLUTION,LACTATED 1,000 ML IV PRN ×2 (05:32→18:30)
[2020-08-15 07:24] LABS: ANION GAP 8 (5-19); BLOOD UREA NITROGEN 23 mg/dL (7-20); CALCIUM 8.4 mg/dL (8.4-10.2); CARBON DIOXIDE 20 mmol/L (22-30); CHLORIDE 112 mmol/L (98-107); GLUCOSE 114 mg/dL (75-110); PHOSPHORUS 1.9 mg/dL (2.5-4.5); POTASSIUM 3.3 mmol/L (3.6-5.0)
--- NOTE | 2020-08-15 08:09 | PDOC CONSULTATION ---
Consultation Consult Date: 08/15/20 Attending physician:: BUCK MEJÍA Provider Consulted: RAZA BASURTO Consult reason:: Patient with stage II rectal cancer on neoadjuvant chemotherapy History of Present Illness Admission Date/PCP: 08/14/20 16:23 JOCELYNE MCDERMOTT PA-C Patient complains of: Diarrhea, weakness, confusion History of Present Illness: LING DENNIS is a 79 year old male with known history of stage II rectal cancer status post concurrent chemoradiation, and thereafter was supposed to go towards APR surgery at [facility], but ultimately decided against surgery and we are giving him a total neoadjuvant chemotherapy approach. To that extent, he has gotten 2 cycles of chemotherapy with XELOX chemotherapy. The first cycle was complicated with severe diarrhea, but we were able to manage that as an outpatient with aggressive hydration, he had dose reduced the oral Xeloda for the second cycle which was started about 2 weeks ago, but unfortunately again had severe diarrhea. Diarrhea was ongoing for almost 2 weeks now, he really did not call us telling us that it was getting worse, ultimately his son came to check on him and he was confused unable to get out of the chair, and we instructed him to to come to our office, he was seen in our office and was weak, unable to get out of a wheelchair, confused, and in acute renal failure. We sent him to the ED for admission. Upon admission to the ED his creatinine was 1 .9, BUN was elevated also, and he was very weak. He was given aggressive hydration through the night, and looks much better today. However he still seems slightly confused, and unsteady on his feet. Past Medical History Cardiac Medical History: Reports: Hyperlipidema, Hypertension Denies: Coronary Artery Disease, Myocardial Infarction Pulmonary Medical History: Denies: Asthma, Bronchitis, Chronic Obstructive Pulmonary Disease (COPD), Pneumonia Neurological Medical History: Denies: Seizures Malignancy Medical History: Reports: Colorectal Cancer Musculoskeltal Medical History: Denies: Arthritis Psychiatric Medical History: Denies: Depression Hematology: Denies: Anemia Past Surgical History Past Surgical History: Reports: Orthopedic Surgery - right knee scope Social History Information Source: Patient Smoking Status: Former Smoker Electronic Cigarette use?: No Frequency of Alcohol Use: None Hx Recreational Drug Use: No Hx Prescription Drug Abuse: No - Advance Directive Resuscitation Status: Full Code Family History Family History: Reviewed & Not Pertinent, Hypertension Parental Family History Reviewed: Yes Children Family History Reviewed: Yes Sibling(s) Family History Reviewed.: Yes Medication/Allergy Home Medications: Multivitamin [Multiple Vitamins] 1 each PO DAILY 04/25/13 Rosuvastatin Calcium [Crestor 10 mg Tablet] 10 mg PO QPM 04/25/13 Lisinopril 20 mg PO QPM 08/14/20 Potassium Chloride 20 meq PO QPM 08/14/20 Tamsulosin HCl [Flomax 0.4 mg Cap.sr] 0.4 mg PO DAILY 08/14/20 Vit A/Vit C/Vit E/Zinc/Copper [Preservision Areds Tablet] 1 each PO BID 08/14/20 Zolpidem Tartrate [Ambien] 10 mg PO QHS 08/14/20 Allergies/Adverse Reactions: No Known Allergies Allergy (Verified 08/14/20 12:13) Review of Systems Constitutional: PRESENT: anorexia, fatigue, weakness Cardiovascular: ABSENT: chest pain, dyspnea on exertion, edema, orthropnea, palpitations Gastrointestinal: PRESENT: bloating, diarrhea, nausea Genitourinary: ABSENT: dysuria, hematuria Integumentary: ABSENT: rash, wounds Neurological: PRESENT: confusion, weakness Physical Exam Vital Signs: Temp Pulse Resp BP Pulse Ox 98 F 66 16 122/68 96 08/15/20 00:11 08/15/20 00:11 08/15/20 00:11 08/15/20 00:11 08/15/20 00:11 Intake & Output 08/14/20 08/15/20 08/16/20 06:59 06:59 06:59 Intake Total 2150 Balance 2150 Weight 67.6 kg General appearance: PRESENT: no acute distress, well-developed, well-nourished Head exam: PRESENT: atraumatic, normocephalic Eye exam: PRESENT: conjunctiva pink, EOMI, PERRLA. ABSENT: scleral icterus Ear exam: PRESENT: normal external ear exam Mouth exam: PRESENT: moist, tongue midline Neck exam: ABSENT: carotid bruit, JVD, lymphadenopathy, thyromegaly Respiratory exam: PRESENT: clear to auscultation darvin. ABSENT: rales, rhonchi, wheezes Cardiovascular exam: PRESENT: RRR. ABSENT: diastolic murmur, rubs, systolic murmur Pulses: PRESENT: normal dorsalis pedis pul Vascular exam: PRESENT: normal capillary refill GI/Abdominal exam: PRESENT: normal bowel sounds, soft. ABSENT: distended, g uarding, mass, organolmegaly, rebound, tenderness Rectal exam: PRESENT: deferred Extremities exam: PRESENT: full ROM. ABSENT: calf tenderness, clubbing, pedal edema Neurological exam: PRESENT: alert, awake, oriented to person, oriented to place, oriented to time, oriented to situation, CN II-XII grossly intact. ABSENT: mo tor sensory deficit Psychiatric exam: PRESENT: appropriate affect, normal mood. ABSENT: homicidal ideation, suicidal ideation Skin exam: PRESENT: dry, intact, warm. ABSENT: cyanosis, rash Results Laboratory Results: 08/14/20 14:30 08/15/20 05:02 08/14/20 08/14/20 08/14/20 14:30 14:30 14:30 WBC 4.0 RBC 4.01 L Hgb 12.7 L Hct 37.0 L MCV 92 MCH 31.7 MCHC 34.3 RDW 13.7 Plt Count 126 L Seg Neutrophils % Not Reportable Sodium 141.4 Potassium 3.1 L Chloride 107 Carbon Dioxide 22 Anion Gap 12 BUN 33 H Creatinine 1.87 H Est GFR ( Amer) 42 L Glucose 124 H Calcium 9.3 Phosphorus Magnesium 1.9 Total Bilirubin 1.8 H AST 36 Alkaline Phosphatase 61 Total Protein 6.3 Albumin 3.6 Urine Color Urine Appearance Urine pH Ur Specific [place] Urine Protein Urine Glucose (UA) Urine Ketones Urine Blood Urine RBC (Auto) Stool for White Cells 08/14/20 08/14/20 08/15/20 16:50 16:55 05:02 WBC RBC Hgb Hct MCV MCH MCHC RDW Plt Count Seg Neutrophils % Sodium 140.2 Potassium 3.3 L Chloride 112 H Carbon Dioxide 20 L Anion Gap 8 BUN 23 H Creatinine 1.21 Est GFR ( Amer) > 60 Glucose 114 H Calcium 8.4 Phosphorus 1.9 L Magnesium 1.9 Total Bilirubin AST Alkaline Phosphatase Total Protein Albumin Urine Color JAIDA Urine Appearance SLIGHTLY-CLOUDY Urine pH 5.0 Ur Specific [place] 1.024 Urine Protein 30 H Urine Glucose (UA) NEGATIVE Urine Ketones NEGATIVE Urine Blood SMALL H Urine RBC (Auto) 2 Stool for White Cells NO WBCs SEEN Impressions: Chest X-Ray 08/14/20 12:21 IMPRESSION: No acute cardiopulmonary process. Head CT 08/14/20 12:22 IMPRESSION: No acute intracranial abnormality. EVIDENCE OF ACUTE STROKE: NO. 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 Continue with aggressive hydration for at least 24 more hours but probably 48 more hours. (2) Dehydration Is this a current diagnosis for this admission?: Yes Plan: Secondary to the oral Xeloda causing diarrhea, continue with aggressive hydration (3) Confusion Is this a current diagnosis for this admission?: Yes Plan: Secondary to dehydration, improved today (4) LUCIA (acute kidney injury) Is this a current diagnosis for this admission?: Yes Plan: Pre-renal azotemia secondary to dehydration from diarrhea and poor p.o. intake, continue with hydration and should hopefully return to baseline (5) Rectal adenocarcinoma Is this a current diagnosis for this admission?: Yes Plan: Stage II rectal cancer, receiving total neoadjuvant chemotherapy. Holding all therapy for now. Continue hydration until patient returns to baseline. - Time Time Spent: Greater than 70 Minutes - Inpatient Certification Based on my medical assessment, after consideration of the patient's comorbidities, presenting symptoms, or acuity I expect that the services needed warrant INPATIENT care.: Yes I certify that my determination is in accordance with my understanding of Medicare's requirements for reasonable and necessary INPATIENT services [42 CFR 412.3e].: Yes Medical Necessity: Need For IV Fluids, Risk of Complication if Not Cared For in Hospital
[2020-08-15] MEDS: TAMSULOSIN HCL 0.4 MG CAP.SR.24H PO SCH (09:54)
[2020-08-15] MEDS: MULTIVITAMIN TABLET PO SCH (09:54)
[2020-08-15] MEDS: FAMOTIDINE INJ/PF 20 MG/2 ML SDV IV SCH ×2 (09:54→22:06)
[2020-08-15 12:55] LABS: PATH REVIEW PATHOLOGIST REVIEWED
--- NOTE | 2020-08-15 12:55 | PDOC PROGRESS REPORT ---
Subjective Progress Note for:: 08/15/20 Subjective:: She is still having diarrhea. He will occasionally have some fecal incontinence with it. He denies abdominal pain. He still feels quite weak. BUN and creatinine are improved. He does have ongoing hiccups since he ate. Reason For Visit: DEHYDRATION, LUCIA Physical Exam Vital Signs: Temp Pulse Resp BP Pulse Ox 98.4 F 70 18 137/70 H 97 08/15/20 10:00 08/15/20 08:13 08/15/20 08:13 08/15/20 08:13 08/15/20 08:13 Intake & Output 08/14/20 08/15/20 08/16/20 06:59 06:59 06:59 Intake Total 2150 Balance 2150 Weight 67.6 kg General appearance: PRESENT: cooperative, mild distress, well-developed. ABSENT: disheveled Head exam: PRESENT: atraumatic, normocephalic Ear exam: PRESENT: normal external ear exam. ABSENT: drainage Mouth exam: PRESENT: moist, tongue midline Neck exam: PRESENT: full ROM. ABSENT: carotid bruit, JVD, tracheostomy Respiratory exam: PRESENT: clear to auscultation darvin, symmetrical, unlabored. ABSENT: accessory muscle use, prolonged expiratory phas, rales, rhonchi, tachypnea, wheezes Cardiovascular exam: PRESENT: RRR, +S1, +S2. ABSENT: bradycardia, diastolic murmur, irregular rhythm, systolic murmur, tachycardia GI/Abdominal exam: PRESENT: hypoactive bowel sounds, soft. ABSENT: distended, guarding, tenderness Rectal exam: PRESENT: deferred Gentrourinary exam: ABSENT: indwelling catheter Extremities exam: ABSENT: calf tenderness, pedal edema Musculoskeletal exam: PRESENT: ambulatory, normal inspection. ABSENT: deformity, dislocation Neurological exam: PRESENT: alert, awake, oriented to person, oriented to place, oriented to time, oriented to situation, CN II-XII grossly intact - Wears eyeglasses. ABSENT: altered Psychiatric exam: PRESENT: flat affect. ABSENT: agitated, anxious Focused psych exam: ABSENT: delusional, paranoid, restlessness Skin exam: PRESENT: dry, normal color, warm. ABSENT: cyanosis, rash Results Laboratory Results: 08/14/20 14:30 08/15/20 05:02 08/14/20 08/14/20 08/14/20 14:30 14:30 14:30 WBC 4.0 RBC 4.01 L Hgb 12.7 L Hct 37.0 L MCV 92 MCH 31.7 MCHC 34.3 RDW 13.7 Plt Count 126 L Seg Neutrophils % Not Reportable Sodium 141.4 Potassium 3.1 L Chloride 107 Carbon Dioxide 22 Anion Gap 12 BUN 33 H Creatinine 1.87 H Est GFR ( Amer) 42 L Glucose 124 H Calcium 9.3 Phosphorus Magnesium 1.9 Total Bilirubin 1.8 H AST 36 Alkaline Phosphatase 61 Total Protein 6.3 Albumin 3.6 Urine Color Urine Appearance Urine pH Ur Specific [place] Urine Protein Urine Glucose (UA) Urine Ketones Urine Blood Urine RBC (Auto) Stool for White Cells 08/14/20 08/14/20 08/15/20 16:50 16:55 05:02 WBC RBC Hgb Hct MCV MCH MCHC RDW Plt Count Seg Neutrophils % Sodium 140.2 Potassium 3.3 L Chloride 112 H Carbon Dioxide 20 L Anion Gap 8 BUN 23 H Creatinine 1.21 Est GFR ( Amer) > 60 Glucose 114 H Calcium 8.4 Phosphorus 1.9 L Magnesium 1.9 Total Bilirubin AST Alkaline Phosphatase Total Protein Albumin Urine Color JAIDA Urine Appearance SLIGHTLY-CLOUDY Urine pH 5.0 Ur Specific [place] 1.024 Urine Protein 30 H Urine Glucose (UA) NEGATIVE Urine Ketones NEGATIVE Urine Blood SMALL H Urine RBC (Auto) 2 Stool for White Cells NO WBCs SEEN Impressions: Chest X-Ray 08/14/20 12:21 IMPRESSION: No acute cardiopulmonary process. Head CT 08/14/20 12:22 IMPRESSION: No acute intracranial abnormality. EVIDENCE OF ACUTE STROKE: NO. Assessment and Plan - Diagnosis (1) LUCIA (acute kidney injury) Is this a current diagnosis for this admission?: Yes Plan: We will give IV fluids and recheck BMP in the morning. Creatinine is 1.8 today. Suspect is secondary to dehydration. 08/15/2020-BUN and creatinine much improved. BUN is down to 23 with a creatinine of 1.21. We will continue IV fluids as the patient is still having diarrhea. 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 difficile. This may be functional secondary to chemotherapy. IV fluids. 08/15/2020-C. difficile was negative. No white blood cell seen in the stool. Ex act etiology still unknown. He is getting chemotherapy for his colon cancer and he did receive radiation earlier in the year. Radiation colitis as well as adverse effect of chemotherapy are possibilities. (3) Hypokalemia Is this a current diagnosis for this admission?: Yes Plan: Replete with KCl IV and p.o. recheck levels On 2920-potassium is slightly better than yesterday. It is up to 3.3. The patient is on oral potassium chloride as well as K-Phos. Continue to monitor chemistries (4) Colorectal cancer, stage I Is this a current diagnosis for this admission?: Yes Plan: Patient once he has history of stage I colorectal cancer diagnosed earlier this year in January. Opted for chemotherapy as opposed to surgical resection. Received radiation earlier in the year and currently receiving chemo. Last regimen of chemo was last week. Follows with Dr. Ambriz who has been consulted. Patient encouraged on good nutritional intake. Dietitian will be consulted as well Pain control as needed. As above. Appreciate Dr. Ambriz's input. (5) Hypertension Qualifiers: Hypertension type: essential hypertension Qualified Code(s): I10 - Essential (primary) hypertension Is this a current diagnosis for this admission?: Yes Plan: 08/15/2020 continue lisinopril for now. Monitor vital signs. (6) Hyperlipidemia Qualifiers: Hyperlipidemia type: unspecified Qualified Code(s): E78.5 - Hyperlipidemia, unspecified Is this a current diagnosis for this admission?: Yes Plan: 08/15/2020-continue statin therapy - Time Time Spent with patient: 15-24 minutes Medications reviewed and adjusted accordingly: Yes Anticipated Discharge Disposition: Home, Self Care Anticipated Discharge Timeframe: within 24 hours
[2020-08-15] MEDS: LOPERAMIDE HCL 2 MG CAPSULE PO PRN ×2 (16:03→22:10)
[2020-08-15] MEDS: PHOSPHORUS #1 250 MG TABLET PO SCH ×2 (16:03→22:06)
[2020-08-15] MEDS ORDERED: POTASSIUM CHLORIDE 10 MEQ TABLET.ER PO SCH (18:00)
[2020-08-15] MEDS ORDERED: LISINOPRIL 10 MG TABLET PO SCH (18:00)
[2020-08-15] MEDS: ZOLPIDEM TARTRATE 5 MG TABLET PO PRN (22:06)
[2020-08-15] MEDS: ATORVASTATIN CALCIUM 20 MG TABLET PO SCH (22:06)
[2020-08-16] MEDS: HEPARIN SOD (PORCINE) 5,000 UNIT/ML 1 ML VIAL SUBCUT SCH (05:21)
[2020-08-16] MEDS: RINGERS SOLUTION,LACTATED 1,000 ML IV PRN (07:33)
[2020-08-16] MEDS: PHOSPHORUS #1 250 MG TABLET PO SCH ×2 (07:36→11:12)
--- NOTE | 2020-08-16 08:35 | PDOC PROGRESS REPORT ---
Subjective Progress Note for:: 08/16/20 Subjective:: Severe diarrhea still continued, was confused overnight. Asking for his to stay with him overnight. Asked nursing to see if this can happen. Added Lomotil to his diarrhea regimen as both his stool culture and C. difficile was negative. Reason For Visit: DEHYDRATION, LUCIA Physical Exam Vital Signs: Temp Pulse Resp BP Pulse Ox 98.0 F 86 18 151/85 H 100 08/15/20 20:00 08/15/20 20:00 08/15/20 20:00 08/15/20 20:00 08/15/20 20:00 Intake & Output 08/15/20 08/16/20 08/17/20 06:59 06:59 06:59 Intake Total 2149 1999 Balance 2149 1999 Weight 67.6 kg 65.3 kg General appearance: PRESENT: no acute distress, well-developed, well-nourished Head exam: PRESENT: atraumatic, normocephalic Eye exam: PRESENT: conjunctiva pink, EOMI, PERRLA. ABSENT: scleral icterus Ear exam: PRESENT: normal external ear exam Mouth exam: PRESENT: moist, tongue midline Neck exam: ABSENT: carotid bruit, JVD, lymphadenopathy, thyromegaly Respiratory exam: PRESENT: clear to auscultation darvin. ABSENT: rales, rhonchi, wheezes Cardiovascular exam: PRESENT: RRR. ABSENT: diastolic murmur, rubs, systolic murmur Pulses: PRESENT: normal dorsalis pedis pul Vascular exam: PRESENT: normal capillary refill GI/Abdominal exam: PRESENT: normal bowel sounds, soft. ABSENT: distended, gu arding, mass, organolmegaly, rebound, tenderness Rectal exam: PRESENT: deferred Extremities exam: PRESENT: full ROM. ABSENT: calf tenderness, clubbing, pedal edema Neurological exam: PRESENT: alert, awake, oriented to person, oriented to place, oriented to time, oriented to situation, CN II-XII grossly intact. ABSENT: mot or sensory deficit Psychiatric exam: PRESENT: appropriate affect, normal mood. ABSENT: homicidal ideation, suicidal ideation Skin exam: PRESENT: dry, intact, warm. ABSENT: cyanosis, rash Results Laboratory Results: 08/14/20 14:30 08/15/20 05:02 Impressions: Chest X-Ray 08/14/20 12:21 IMPRESSION: No acute cardiopulmonary process. Head CT 08/14/20 12:22 IMPRESSION: No acute intracranial abnormality. EVIDENCE OF ACUTE STROKE: NO. 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 Infectious work-up negative. (2) Dehydration Is this a current diagnosis for this admission?: Yes Plan: Continue hydration (3) Confusion Is this a current diagnosis for this admission?: Yes Plan: Delirium secondary to continued dehydration from the diarrhea. Hopefully his can stay with him and help orient him through the night. (4) LUCIA (acute kidney injury) Is this a current diagnosis for this admission?: Yes Plan: Improved. Continue to monitor CMP every other day (5) Rectal adenocarcinoma Is this a current diagnosis for this admission?: Yes Plan: Holding on all therapy for now. - Time Time Spent with patient: 35 or more minutes
[2020-08-16] MEDS: FAMOTIDINE INJ/PF 20 MG/2 ML SDV IV SCH (09:10)
[2020-08-16] MEDS: TAMSULOSIN HCL 0.4 MG CAP.SR.24H PO SCH (09:11)
[2020-08-16] MEDS: MULTIVITAMIN TABLET PO SCH (09:11)
[2020-08-16] MEDS: DIPHENOXYLATE HCL/ATROP SULF 2.5-0.025 MG TABLET PO SCH ×2 (09:11→11:16)
--- NOTE | 2020-08-16 11:07 | PDOC DISCHARGE SUMMARY ---
Impression - Admit/DC Date/PCP Admission Date/Primary Care Provider: 08/14/20 16:23 JOCELYNE MCDERMOTT PA-C Discharge Date: 08/16/20 - Discharge Diagnosis (1) LUCIA (acute kidney injury) Is this a current diagnosis for this admission?: Yes (2) Diarrhea Is this a current diagnosis for this admission?: Yes (3) Hypokalemia Is this a current diagnosis for this admission?: Yes (4) Colorectal cancer, stage I Is this a current diagnosis for this admission?: Yes (5) Hypertension Is this a current diagnosis for this admission?: Yes (6) Hyperlipidemia Is this a current diagnosis for this admission?: Yes - Additional Information Resuscitation Status: Full Code Discharge Diet: As Tolerated, Other (Comments) - Start with low residue and increase slowly Discharge Activity: Activity As Tolerated Referrals: RAZA AMBRIZ MD [ACTIVE STAFF] - 08/21/20 8:45 am Home Medications: Multivitamin [Multiple Vitamins] 1 each PO DAILY 04/25/13 Rosuvastatin Calcium [Crestor 10 mg Tablet] 10 mg PO QPM 04/25/13 Lisinopril 20 mg PO QPM 08/14/20 Potassium Chloride 20 meq PO QPM 08/14/20 Tamsulosin HCl [Flomax 0.4 mg Cap.sr] 0.4 mg PO DAILY 08/14/20 Vit A/Vit C/Vit E/Zinc/Copper [Preservision Areds Tablet] 1 each PO BID 08/14/20 Zolpidem Tartrate [Ambien] 10 mg PO QHS 08/14/20 History of Present Illiness History of Present Illness: LNIG DENNIS is a 79 year old male with colorectal cancer currently on chemo, who presents to the hospital on referral from the oncology clinic for evaluation of abnormal labs and dehydration. Notably this morning, patient states he heard some voices in the living room, he went out to the living room and saw that his at on the TV up loud. Went back to his room and later noted that he was hearing a man and a woman's voice outside. He grabbed his gun and went to confront the person and realized that he was the autism specialist. He was talked down by the autism specialist and then his son was notified. He was taken to the oncology clinic for his appointment and labs that were abnormal showing low potassium and elevated renal function. Subsequently sent to the ER for IV fluid hydration. On discussion with patient, patient states that he has been having several bouts of diarrhea up to 5 times a day and has been having decreased appetite. He has not wanted to eat much due to the diarrhea. He also does get some epigastric pain. He denies any fever or chills. Hospital Course Hospital Course: Unremarkable hospital course. The diarrhea slowly improved. He benefited from IV fluids. At this point the risk of staying in the hospital versus going home certainly favors discharged home with conservative supportive care. Diarrhea is improving. He is able to maintain oral liquids. Physical Exam Vital Signs: Temp Pulse Resp BP Pulse Ox 98.0 F 86 18 151/85 H 100 08/16/20 10:00 08/15/20 20:00 08/15/20 20:00 08/15/20 20:00 08/15/20 20:00 Intake & Output 08/15/20 08/16/20 08/17/20 06:59 06:59 06:59 Intake Total 2149 1999 Balance 2149 1999 Weight 67.6 kg 65.3 kg General appearance: PRESENT: no acute distress, cooperative, well-developed Respiratory exam: PRESENT: clear to auscultation darvin, symmetrical, unlabored. ABSENT: rales, rhonchi, tachypnea, wheezes Cardiovascular exam: PRESENT: RRR, +S1, +S2. ABSENT: bradycardia, diastolic murmur, irregular rhythm, systolic murmur, tachycardia GI/Abdominal exam: PRESENT: normal bowel sounds, soft. ABSENT: distended, guarding Neurological exam: PRESENT: alert, awake, oriented to person, oriented to place, oriented to time, oriented to situation, CN II-XII grossly intact. ABSENT: altered Psychiatric exam: PRESENT: appropriate affect. ABSENT: agitated, anxious Focused psych exam: ABSENT: delusional, paranoid Results Laboratory Results: WBC 4.0 10^3/uL (4.0-10.5) 08/14/20 14:30 RBC 4.01 10^6/uL (4.35-5.55) L 08/14/20 14:30 Hgb 12.7 g/dL (13.5-17.0) L 08/14/20 14:30 Hct 37.0 % (37.9-51.0) L 08/14/20 14:30 MCV 92 fl (80-97) 08/14/20 14:30 MCH 31.7 pg (27.0-33.4) 08/14/20 14:30 MCHC 34.3 g/dL (32.0-36.0) 08/14/20 14:30 RDW 13.7 % (11.5-14.0) 08/14/20 14:30 Plt Count 126 10^3/uL (150-450) L 08/14/20 14:30 Lymph % (Auto) Not Reportable 08/14/20 14:30 [place] % (Auto) Not Reportable 08/14/20 14:30 Eos % (Auto) Not Reportable 08/14/20 14:30 Baso % (Auto) Not Reportable 08/14/20 14:30 Absolute Neuts (auto) Not Reportable 08/14/20 14:30 Absolute Lymphs (auto) Not Reportable 08/14/20 14:30 Absolute Monos (auto) Not Reportable 08/14/20 14:30 Absolute Eos (auto) Not Reportable 08/14/20 14:30 Absolute Basos (auto) Not Reportable 08/14/20 14:30 Total Counted 100 08/14/20 14:30 Seg Neutrophils % Not Reportable 08/14/20 14:30 Seg Neuts % (Manual) 65 % (42-78) 08/14/20 14:30 Lymphocytes % (Manual) 8 % (13-45) L 08/14/20 14:30 Monocytes % (Manual) 27 % (3-13) H 08/14/20 14:30 Eosinophils % (Manual) 0 % (0-6) 08/14/20 14:30 Basophils % (Manual) 0 % (0-2) 08/14/20 14:30 Abs Neuts (Manual) 2.6 10^3/uL (1.7-8.2) 08/14/20 14:30 Abs Lymphs (Manual) 0.3 10^3/uL (0.5-4.7) L 08/14/20 14:30 Abs Monocytes (Manual) 1.1 10^3/uL (0.1-1.4) 08/14/20 14:30 Absolute Eos (Manual) 0.0 10^3/uL (0.0-0.6) 08/14/20 14:30 Abs Basophils (Manual) 0.0 10^3/uL (0.0-0.2) 08/14/20 14:30 Platelet Comment ADEQUATE 08/14/20 14:30 PT 16.7 SEC (11.4-15.4) H 08/14/20 15:15 INR 1.34 08/14/20 15:15 INR (Anticoag Therapy) Cancelled 08/14/20 14:30 APTT 32.3 SEC (23.5-35.8) 08/14/20 15:15 Sodium 140.2 mmol/L (137-145) 08/15/20 05:02 Potassium 3.3 mmol/L (3.6-5.0) L 08/15/20 05:02 Chloride 112 mmol/L (98-107) H 08/15/20 05:02 Carbon Dioxide 20 mmol/L (22-30) L 08/15/20 05:02 Anion Gap 8 (5-19) 08/15/20 05:02 BUN 23 mg/dL (7-20) H 08/15/20 05:02 Creatinine 1.21 mg/dL (0.52-1.25) 08/15/20 05:02 Est GFR ( Amer) > 60 (>60) 08/15/20 05:02 Est GFR (MDRD) Non-Af 58 (>60) L 08/15/20 05:02 Glucose 114 mg/dL (75-110) H 08/15/20 05:02 Calcium 8.4 mg/dL (8.4-10.2) 08/15/20 05:02 Phosphorus 1.9 mg/dL (2.5-4.5) L 08/15/20 05:02 Magnesium 1.9 mg/dL (1.6-2.3) 08/15/20 05:02 Total Bilirubin 1.8 mg/dL (0.2-1.3) H 08/14/20 14:30 Direct Bilirubin 0.4 mg/dL (0.0-0.4) 08/14/20 14:30 Neonat Total Bilirubin Not Reportable 08/14/20 14:30 Neonat Direct Bilirubin Not Reportable 08/14/20 14:30 Neonat Indirect Bili Not Reportable 08/14/20 14:30 AST 36 U/L (17-59) 08/14/20 14:30 ALT 30 U/L (<50) 08/14/20 14:30 Alkaline Phosphatase 61 U/L (38-126) 08/14/20 14:30 Total Protein 6.3 g/dL (6.3-8.2) 08/14/20 14:30 Albumin 3.6 g/dL (3.5-5.0) 08/14/20 14:30 Urine Color JAIDA 08/14/20 16:50 Urine Appearance SLIGHTLY-CLOUDY 08/14/20 16:50 Urine pH 5.0 (5.0-9.0) 08/14/20 16:50 Ur Specific [place] 1.024 08/14/20 16:50 Urine Protein 30 mg/dL (NEGATIVE) H 08/14/20 16:50 Urine Glucose (UA) NEGATIVE mg/dL (NEGATIVE) 08/14/20 16:50 Urine Ketones NEGATIVE mg/dL (NEGATIVE) 08/14/20 16:50 Urine Blood SMALL (NEGATIVE) H 08/14/20 16:50 Urine Nitrite (Reflex) NEGATIVE (NEGATIVE) 08/14/20 16:50 Urine Bilirubin NEGATIVE (NEGATIVE) 08/14/20 16:50 Urine Urobilinogen NEGATIVE mg/dL (<2.0) 08/14/20 16:50 Leukocyte Esterase Rfl NEGATIVE (NEGATIVE) 08/14/20 16:50 Urine RBC (Auto) 2 /HPF 08/14/20 16:50 Urine Bacteria (Auto) TRACE /HPF 08/14/20 16:50 Urine WBC (Reflex) 1 /HPF 08/14/20 16:50 Squamous Epi Cells Auto 1 /HPF 08/14/20 16:50 Urine Mucus (Auto) FEW /LPF 08/14/20 16:50 Urine Ascorbic Acid NEGATIVE (NEGATIVE) 08/14/20 16:50 Stool for White Cells NO WBCs SEEN 08/14/20 16:55 Stl C. Difficile GDH Ag NEGATIVE (NEGATIVE) 08/14/20 16:55 Stl C.difficile Tox A&B NEGATIVE (NEGATIVE) 08/14/20 16:55 Slides for Path Review PATHOLOGIST REVIEWED 08/14/20 14:30 Impressions: Chest X-Ray 08/14/20 12:21 IMPRESSION: No acute cardiopulmonary process. Head CT 08/14/20 12:22 IMPRESSION: No acute intracranial abnormality. EVIDENCE OF ACUTE STROKE: NO. Plan Health Concerns: Profound diarrhea. Unsure of etiology but infection has been ruled out. Plan of Treatment: Plan replenishment of fluids and electrolytes as described above. Repeat blood work at follow-up with Dr. Ambriz. Goals: Resolution of diarrhea. Time Spent: Greater than 30 Minutes Stroke Is this a Stroke Patient?: No Acute Heart Failure Is this a Heart Failure Patient?: No
[2020-08-16 13:05] VITALS: BP 151/85
== END 2020-08-16 13:35 | disposition home or self-care (01) ==
LOC: ER 11:18 → EH 16:23 → INTOOBSV 16:23 → 4W 20:41
PROVIDERS: ADMIT Internal Medicine; ATTEND Hospitalist
DX: N17.9 Acute kidney failure, unspecified (principal); R19.7 Diarrhea, unspecified; E87.6 Hypokalemia; C19 Malignant neoplasm of rectosigmoid junction; E86.0 Dehydration; R41.0 Disorientation, unspecified; I10 Essential (primary) hypertension; E78.5 Hyperlipidemia, unspecified; R26.81 Unsteadiness on feet; R15.9 Full incontinence of feces; R06.6 Hiccough; E83.42 Hypomagnesemia; Z79.899 Other long term (current) drug therapy; Z87.891 Personal history of nicotine dependence; Z82.49 Family history of ischemic heart disease and other diseases of the circulatory system; Z92.3 Personal history of irradiation
CPT/HCPCS: 93005; 99285; 96361; 96365; 96368; 36415 ×2; 87045; 89055; 87205; 83735 ×2; 84100; 85025; 85610; 85730; 80048; 80053; 81001; 87324; 87449; 71046; 70450; 93010; 97530; 97110; 97116 ×2; 97162; G0378 ×4; A9270 ×16; J3475; J3480; J7030; J7120 ×3; S0028 ×2; J3490

== ENCOUNTER 2020-08-19 09:49 | Inpatient (IN) | payer MEDICARE, OTHER ==
[2020-08-19] MEDS ORDERED: NORMAL SALINE 1000 ML 1,000 ML IV ONE ×2 (10:12→11:44)
[2020-08-19] MEDS ORDERED: ONDANSETRON HCL INJ/PF 4 MG/2 ML SDV IV ONE (10:12)
--- NOTE | 2020-08-19 10:18 | ER Document Report ---
ED Medical Screen (RME) - General Chief Complaint: Diarrhea Stated Complaint: WEAKNESS/DIARRHEA/POSSIBLE DEHYDRATION Time Seen by Provider: 08/19/20 10:11 Primary Care Provider: JOCELYNE MCDERMOTT PA-C [Primary Care Provider] - Follow up as needed Mode of Arrival: Wheelchair Information source: Patient Notes: 79-year-old male presented to ED for complaint of fatigue diarrhea weakness dehydration. He states he was here last Friday and was admitted for 2-1/2 days due to fatigue diarrhea memory loss dehydration after chemo. He states he is getting chemo for colorectal cancer he has not had any surgeries. He did go to Dr. Willis. He states he also goes to a Dr. Brooks. He states the only surgery he has always orthoscopic for knee he lives with his family does not smoke drink or use any drugs. He states he is getting weaker and weaker and the diarrhea is getting worse and worse and they told him to try Imodium and that is not working. I have greeted and performed a rapid initial assessment of this patient. A comprehensive ED assessment and evaluation of the patient, analysis of test results and completion of medical decision making process will be conducted by an additional ED providers. TRAVEL OUTSIDE OF THE [place] IN LAST 30 DAYS: No - Related Data Allergies/Adverse Reactions: No Known Allergies Allergy (Verified 08/14/20 12:13) Past Medical History - Social History Chew tobacco use (# tins/day): No Frequency of alcohol use: None Drug Abuse: None - Past Medical History Cardiac Medical History: Reports: Hx Hypercholesterolemia, Hx Hypertension Denies: Hx Coronary Artery Disease, Hx Heart Attack Pulmonary Medical History: Denies: Hx Asthma, Hx Bronchitis, Hx COPD, Hx Pneumonia Neurological Medical History: Denies: Hx Cerebrovascular Accident, Hx Seizures Renal/ Medical History: Denies: Hx Peritoneal Dialysis Malignancy Medical History: Reports Hx Colorectal Cancer Musculoskeltal Medical History: Denies Hx Arthritis Psychiatric Medical History: Denies: Hx Depression Past Surgical History: Reports: Hx Orthopedic Surgery - right knee scope - Immunizations Hx Diphtheria, Pertussis, Tetanus Vaccination: Yes - updated today Physical Exam - Vital signs Vitals: Temp Pulse Resp BP Pulse Ox 97.5 F 94 18 126/81 H 98 08/19/20 09:54 08/19/20 09:54 08/19/20 09:54 08/19/20 09:54 08/19/20 09:54 Course - Vital Signs Vital signs: Temp Pulse Resp BP Pulse Ox 97.5 F 94 18 126/81 H 98 08/19/20 09:54 08/19/20 09:54 08/19/20 09:54 08/19/20 09:54 08/19/20 09:54 Doctor's Discharge - Discharge Referrals: JOCELYNE MCDERMOTT PA-C [Primary Care Provider] - Follow up as needed
[2020-08-19 11:08] LABS: ABSOLUTE LYMPHOCYTES (AUTO) 0.3 10^3/uL (0.5-4.7); ABSOLUTE MONOCYTES (AUTO) 0.6 10^3/uL (0.1-1.4); ABSOLUTE NEUT (AUTO) 2.4 10^3/uL (1.7-8.2); BASOPHILS % (AUTO) 0.4 % (0-2); EOSINOPHILS % (AUTO) 0.8 % (0-6); HEMATOCRIT 34.9 % (37.9-51.0); LYMPHOCYTES % (AUTO) 9.5 % (13-45); MEAN CORPUSCULAR HEMOGLOBIN 31.3 pg (27.0-33.4); MEAN CORPUSCULAR HGB CONC 34.4 g/dL (32.0-36.0); MEAN CORPUSCULAR VOLUME 91 fl (80-97); MONOCYTES % (AUTO) 17.1 % (3-13); PLATELET COUNT 165 10^3/uL (150-450); RED BLOOD COUNT 3.83 10^6/uL (4.35-5.55); RED CELL DISTRIBUTION WIDTH 14.4 % (11.5-14.0); SEGMENTED NEUTROPHILS % (AUTO) 72.2 % (42-78); TOTAL CELLS COUNTED % (AUTO) 100 %; WHITE BLOOD COUNT 3.3 10^3/uL (4.0-10.5)
[2020-08-19 11:25] LABS: ALBUMIN 3.1 g/dL (3.5-5.0); ALKALINE PHOSPHATASE 148 U/L (38-126); ANION GAP 14 (5-19); ASPARTATE AMINO TRANSFERASE 148 U/L (17-59); BILIRUBIN,DIRECT 1.2 mg/dL (0.0-0.4); BILIRUBIN,TOTAL 3.5 mg/dL (0.2-1.3); BLOOD UREA NITROGEN 18 mg/dL (7-20); CALCIUM 9.1 mg/dL (8.4-10.2); CARBON DIOXIDE 18 mmol/L (22-30); CHLORIDE 116 mmol/L (98-107); GLUCOSE 132 mg/dL (75-110); PHOSPHORUS 3.5 mg/dL (2.5-4.5); TOTAL PROTEIN 5.9 g/dL (6.3-8.2)
[2020-08-19 11:28] LABS: POTASSIUM 2.9 mmol/L (3.6-5.0)
[2020-08-19] MEDS ORDERED: POTASSI CL 20 MEQ/50 ML RIDER 20 MEQ/50 ML RTUPB IV ONE (11:31)
--- NOTE | 2020-08-19 11:33 | ER Document Report ---
ED GI/ - General Chief Complaint: Diarrhea Stated Complaint: WEAKNESS/DIARRHEA/POSSIBLE DEHYDRATION Time Seen by Provider: 08/19/20 10:11 Primary Care Provider: JOCELYNE MCDERMOTT PA-C [Primary Care Provider] - Follow up as needed Mode of Arrival: Wheelchair Notes: HPI: Patient is a 79-year-old male with past medical history including colorectal cancer followed by a local oncologist on chronic chemotherapy who presents today stating some worsening diarrhea last 2 to 3 days. He states around 10 bouts over the last 24 hours. No abdominal pain, dysuria, vomiting, chest pain, fevers, or other review of systems. He states he feels very fatigued. Patient was seen and admitted here with a recent discharge last week secondary to a similar presentation. ROS: See HPI All other review of systems reviewed and otherwise negative Reviewed vital signs and nursing note as charted by RN. PHYSICAL EXAM: CONSTITUTIONAL: Alert and oriented and responds appropriately to questions. Well-appearing; well-nourished HEAD: Normocephalic; atraumatic EYES: Sclerae non-icteric ENT: Normal nose; no rhinorrhea; moist mucous membranes; pharynx without lesions noted NECK: Supple without meningismus; non-tender; no cervical lymphadenopathy, no masses CARD: Regular rate and rhythm; no murmurs; symmetric distal pulses RESP: Normal chest excursion without splinting or tachypnea; breath sounds clear and equal bilaterally ABD/GI: Normal bowel sounds; non-distended; soft, non-tender currently to deep palpation of all 4 quadrants of the abdomen BACK: The back appears normal and is non-tender to palpation EXT: Normal ROM in all joints; non-tender to palpation; no edema SKIN: No acute lesions noted NEURO: CN 2-12 intact; 5/5 bilateral upper and lower extremity strength with sensation intact to light touch PSYCH: The patient's mood and manner are appropriate. Grooming and personal hygi sosa are appropriate. TRAVEL OUTSIDE OF THE [place] IN LAST 30 DAYS: No - Related Data Allergies/Adverse Reactions: No Known Allergies Allergy (Verified 08/14/20 12:13) Past Medical History - General Information source: Patient - Social History Smoking Status: Never Smoker Chew tobacco use (# tins/day): No Frequency of alcohol use: None Drug Abuse: None Family History: Reviewed & Not Pertinent, Hypertension - Past Medical History Cardiac Medical History: Reports: Hx Hypercholesterolemia, Hx Hypertension Denies: Hx Coronary Artery Disease, Hx Heart Attack Pulmonary Medical History: Denies: Hx Asthma, Hx Bronchitis, Hx COPD, Hx Pneumonia Neurological Medical History: Denies: Hx Cerebrovascular Accident, Hx Seizures Renal/ Medical History: Denies: Hx Peritoneal Dialysis Malignancy Medical History: Reports Hx Colorectal Cancer Musculoskeletal Medical History: Denies Hx Arthritis Psychiatric Medical History: Denies: Hx Depression Past Surgical History: Reports: Hx Orthopedic Surgery - right knee scope - Immunizations Hx Diphtheria, Pertussis, Tetanus Vaccination: Yes - updated today Physical Exam - Vital signs Vitals: Temp Pulse Resp BP Pulse Ox 97.5 F 94 18 126/81 H 98 08/19/20 09:54 10 09:54 08/19/20 09:54 08/19/20 09:54 08/19/20 09:54 Course - Re-evaluation Re-evalutation: 08/19/20 11:30 Given the history and physical examination we are concerned about the possibility of dehydration or electrolyte abnormality. We will order the appropriate labs. Patient has no abdominal pain. I do believe abdominal imaging is unnecessary. We will also check for the possibility of infectious diarrhea. 08/19/20 11:36 Severe dehydration and electrolyte disturbance. I have provided fluids and potassium replacement. I did call the oncologist on-call and he will follow the patient. Patient will be admitted to the hospitalist for further evaluation and treatment. I did discuss with the oncologist the elevated liver enzymes and bilirubin. He is unsure whether this is metastases or possibly chemotherapy related. - Vital Signs Vital signs: Temp Pulse Resp BP Pulse Ox 97.5 F 94 18 126/81 H 98 08/19/20 09:54 08/19/20 09:54 08/19/20 09:54 08/19/20 09:54 08/19/20 09:54 - Laboratory Result Diagrams: 08/19/20 10:50 08/19/20 10:50 Laboratory results interpreted by me: 08/19/20 08/19/20 10:50 10:50 WBC 3.3 L RBC 3.83 L Hgb 12.0 L Hct 34.9 L RDW 14.4 H Lymph % (Auto) 9.5 L [place] % (Auto) 17.1 H Absolute Lymphs (auto) 0.3 L Sodium 147.5 H Potassium 2.9 L* Chloride 116 H Carbon Dioxide 18 L Creatinine 1.54 H Est GFR ( Amer) 53 L Est GFR (MDRD) Non-Af 44 L Glucose 132 H Total Bilirubin 3.5 H Direct Bilirubin 1.2 H AST 148 H ALT 140 H Alkaline Phosphatase 148 H Total Protein 5.9 L Albumin 3.1 L Discharge - Discharge Clinical Impression: Severe dehydration, Low serum potassium level Diarrhea Qualifiers: Diarrhea type: unspecified type Qualified Code(s): R19.7 - Diarrhea, unspecified Condition: Fair Disposition: ADMITTED INPATIENT Admitting Provider: [place] (Hospitalist) Unit Admitted: Telemetry Referrals: JOCELYNE MCDERMOTT PA-C [Primary Care Provider] - Follow up as needed
--- NOTE | 2020-08-19 12:04 | PDOC CONSULTATION ---
Consultation Consult Date: 08/19/20 Attending physician:: BENJAMIN ASHTON Provider Consulted: RAZA BASURTO Consult reason:: Asked as per ER to see patient well-known to our oncology service with stage II rectal cancer, severe diarrhea dehydration History of Present Illness Admission Date/PCP: JOCELYNE MCDERMOTT PA-C Patient complains of: Diarrhea, weakness, dehydration History of Present Illness: LING DENNIS is a 79 year old male with stage II rectal cancer receiving total neoadjuvant chemotherapy with Xeloda, oxaliplatin. Her last dose of Xeloda was about 14 days ago. He was admitted last week for a few days with severe dehydration and diarrhea. Diarrhea improved and he was discharged home but then diarrhea worsened again and he has returned to the ER. Unfortunately now, there is more electrolyte abnormalities with creatinine elevation, BUN is elevated, bilirubin and transaminases, alk phos all are elevated. I reviewed all these labs and I believe this is probably be due to the severe dehydration and diarrhea that has gone on. Probably has caused some organ dysfunction. He looks a little bit better after a liter of fluids today. He was very confused and weak when he came in. He is alert now. Past Medical History Cardiac Medical History: Reports: Hyperlipidema, Hypertension Denies: Coronary Artery Disease, Myocardial Infarction Pulmonary Medical History: Denies: Asthma, Bronchitis, Chronic Obstructive Pulmonary Disease (COPD), Pneumonia Neurological Medical History: Denies: Seizures Malignancy Medical History: Reports: Colorectal Cancer Musculoskeltal Medical History: Denies: Arthritis Psychiatric Medical History: Denies: Depression Hematology: Denies: Anemia Past Surgical History Past Surgical History: Reports: Orthopedic Surgery - right knee scope, Other - Colonoscopy with biopsy Social History Information Source: Patient Smoking Status: Never Smoker Electronic Cigarette use?: No Frequency of Alcohol Use: None Hx Recreational Drug Use: No Hx Prescription Drug Abuse: No - Advance Directive Resuscitation Status: Full Code Family History Family History: Reviewed & Not Pertinent, Hypertension Parental Family History Reviewed: Yes Children Family History Reviewed: Yes Sibling(s) Family History Reviewed.: Yes Medication/Allergy Home Medications: Multivitamin [Multiple Vitamins] 1 each PO DAILY 04/25/13 Rosuvastatin Calcium [Crestor 10 mg Tablet] 10 mg PO QPM 04/25/13 Lisinopril 20 mg PO QPM 08/14/20 Potassium Chloride 20 meq PO QPM 08/14/20 Tamsulosin HCl [Flomax 0.4 mg Cap.sr] 0.4 mg PO DAILY 08/14/20 Vit A/Vit C/Vit E/Zinc/Copper [Preservision Areds Tablet] 1 each PO BID 08/14/20 Zolpidem Tartrate [Ambien] 10 mg PO QHS 08/14/20 Allergies/Adverse Reactions: No Known Allergies Allergy (Verified 08/14/20 12:13) Review of Systems Constitutional: PRESENT: anorexia, fatigue, weakness Cardiovascular: ABSENT: chest pain, dyspnea on exertion, edema, orthropnea, palpitations Gastrointestinal: PRESENT: abdominal pain, bloating, diarrhea, nausea Genitourinary: PRESENT: difficulty urinating Neurological: PRESENT: confusion, weakness Physical Exam Vital Signs: Temp Pulse Resp BP Pulse Ox 97.5 F 94 18 126/81 H 98 08/19/20 09:54 08/19/20 09:54 08/19/20 09:54 08/19/20 09:54 08/19/20 09:54 Intake & Output 08/18/20 08/19/20 08/20/20 06:59 06:59 06:59 Weight 62.596 kg General appearance: PRESENT: no acute distress, well-developed, well-nourished Head exam: PRESENT: atraumatic, normocephalic Eye exam: PRESENT: conjunctiva pink, EOMI, PERRLA. ABSENT: scleral icterus Ear exam: PRESENT: normal external ear exam Mouth exam: PRESENT: moist, tongue midline Neck exam: ABSENT: carotid bruit, JVD, lymphadenopathy, thyromegaly Respiratory exam: PRESENT: clear to auscultation darvin. ABSENT: rales, rhonchi, wheezes Cardiovascular exam: PRESENT: RRR. ABSENT: diastolic murmur, rubs, systolic murmur Pulses: PRESENT: normal dorsalis pedis pul Vascular exam: PRESENT: normal capillary refill GI/Abdominal exam: PRESENT: normal bowel sounds, soft. ABSENT: distended, guarding, mass, organolmegaly, rebound, tenderness Rectal exam: PRESENT: deferred Extremities exam: PRESENT: full ROM. ABSENT: calf tenderness, clubbing, pedal edema Neurological exam: PRESENT: alert, awake, oriented to person, oriented to place, oriented to time, oriented to situation, CN II-XII grossly intact. ABSENT: motor sensory deficit Psychiatric exam: PRESENT: appropriate affect, normal mood. ABSENT: homicidal ideation, suicidal ideation Skin exam: PRESENT: dry, intact, warm. ABSENT: cyanosis, rash Results Laboratory Results: 08/19/20 10:50 08/19/20 10:50 08/19/20 08/19/20 10:50 10:50 WBC 3.3 L RBC 3.83 L Hgb 12.0 L Hct 34.9 L MCV 91 MCH 31.3 MCHC 34.4 RDW 14.4 H Plt Count 165 Seg Neutrophils % 72.2 Sodium 147.5 H Potassium 2.9 L* Chloride 116 H Carbon Dioxide 18 L Anion Gap 14 BUN 18 Creatinine 1.54 H Est GFR ( Amer) 53 L Glucose 132 H Calcium 9.1 Phosphorus 3.5 Magnesium 2.3 Total Bilirubin 3.5 H AST 148 H Alkaline Phosphatase 148 H Total Protein 5.9 L Albumin 3.1 L Lipase 210.4 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 Qualified Code(s): R19.7 - Diarrhea, unspecified Is this a current diagnosis for this admission?: Yes Plan: 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 Continue with aggressive hydration. On previous admission patient was checked for stool for O/P, WBC and C. difficile all of which were negative. So this is unlikely to be infectious. (2) LUCIA (acute kidney injury) Is this a current diagnosis for this admission?: Yes Plan: Secondary to severe dehydration from diarrhea, continue aggressive hydration wit h normal saline (3) Rectal adenocarcinoma Is this a current diagnosis for this admission?: Yes Plan: Chemotherapy is causing the side effect. We probably will not be able to do further chemo as an outpatient. He only has stage II disease at this point. (4) Dehydration Is this a current diagnosis for this admission?: Yes Plan: Secondary to diarrhea, continue with hydration (5) Liver dysfunction Is this a current diagnosis for this admission?: Yes Plan: Most likely secondary to the diarrhea, I do not believe it is because of progressive disease in the liver. It should improve over the next 48 hours with aggressive hydration and diarrhea control. - Time Time Spent: Greater than 70 Minutes - Inpatient Certification Based on my medical assessment, after consideration of the patient's comorbidities, presenting symptoms, or acuity I expect that the services needed warrant INPATIENT care.: Yes I certify that my determination is in accordance with my understanding of Medicare's requirements for reasonable and necessary INPATIENT services [42 CFR 412.3e].: Yes Medical Necessity: Need Close Monitoring Due to Risk of Patient Decompensation, Need For IV Fluids, Risk of Complication if Not Cared For in Hospital
[2020-08-19] MEDS ORDERED: DIPHENOXYLATE HCL/ATROP SULF 2.5-0.025 MG TABLET PO PRN (12:56)
[2020-08-19] MEDS ORDERED: ONDANSETRON HCL INJ/PF 4 MG/2 ML SDV IV PRN (12:56)
--- NOTE | 2020-08-19 13:39 | PDOC H&P ---
History of Present Illness Admission Date/PCP: 08/19/20 12:54 JOCELYNE MCDERMOTT PA-C History of Present Illness: LING DENNIS is a 79 year old male with a history of colorectal cancer who is on Xeloda and has had a lot of issues with side effects from it. 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 He had improved well enough to go home but started having a recurrence of his diarrhea that got worse last night. He said he was going very frequently, several times an hour, and was putting out he estimates a cup of water each time. He denies any pain. He said his oral mucosa feels very dry. He came to the hospital because of his recent experiences and was found to be dehydrated with a mild acute kidney injury. Past Medical History Cardiac Medical History: Reports: Hyperlipidema, Hypertension Denies: Coronary Artery Disease, Myocardial Infarction Pulmonary Medical History: Denies: Asthma, Bronchitis, Chronic Obstructive Pulmonary Disease (COPD), Pneumonia Neurological Medical History: Denies: Seizures Malignancy Medical History: Reports: Colorectal Cancer Musculoskeltal Medical History: Denies: Arthritis Psychiatric Medical History: Denies: Depression Hematology: Denies: Anemia Past Surgical History Past Surgical History: Reports: Orthopedic Surgery - right knee scope, Other - Colonoscopy with biopsy Social History Smoking Status: Never Smoker Electronic Cigarette use?: No Frequency of Alcohol Use: None Hx Recreational Drug Use: No Hx Prescription Drug Abuse: No - Advance Directive Resuscitation Status: Full Code Family History Family History: Reviewed & Not Pertinent, Hypertension Parental Family History Reviewed: Yes Children Family History Reviewed: Yes Sibling(s) Family History Reviewed.: Yes Medication/Allergy Home Medications: Multivitamin [Multiple Vitamins] 1 each PO DAILY 04/25/13 Rosuvastatin Calcium [Crestor 10 mg Tablet] 10 mg PO QPM 04/25/13 Lisinopril 20 mg PO QPM 08/14/20 Potassium Chloride 20 meq PO QPM 08/14/20 Tamsulosin HCl [Flomax 0.4 mg Cap.sr] 0.4 mg PO DAILY 08/14/20 Vit A/Vit C/Vit E/Zinc/Copper [Preservision Areds Tablet] 1 each PO BID 08/14/20 Zolpidem Tartrate [Ambien] 10 mg PO QHS 08/14/20 Allergies/Adverse Reactions: No Known Allergies Allergy (Verified 08/14/20 12:13) Review of Systems All systems: reviewed and no additional remarkable complaints except as stated - all systems were reviewed and were negative except as noted in the HPI Physical Exam Vital Signs: Temp Pulse Resp BP Pulse Ox 97.5 F 94 18 126/81 H 98 08/19/20 09:54 08/19/20 09:54 08/19/20 09:54 08/19/20 09:54 08/19/20 09:54 Intake & Output 08/18/20 08/19/20 08/20/20 06:59 06:59 06:59 Weight 62.596 kg General appearance: PRESENT: no acute distress, cooperative, disheveled Head exam: PRESENT: atraumatic, normocephalic Eye exam: PRESENT: EOMI, PERRLA. ABSENT: conjunctival injection, nystagmus, scleral icterus Ear exam: PRESENT: normal external ear exam Neck exam: PRESENT: full ROM. ABSENT: carotid bruit, JVD, lymphadenopathy, meningismus, tenderness, thyromegaly Respiratory exam: PRESENT: clear to auscultation darvin, symmetrical, unlabored. ABSENT: accessory muscle use, chest wall tenderness, crackles, prolonged expiratory phas, rhonchi, tachypnea, wheezes Cardiovascular exam: PRESENT: RRR, +S1, +S2 Pulses: PRESENT: normal carotid pulses Vascular exam: PRESENT: normal capillary refill GI/Abdominal exam: PRESENT: normal bowel sounds, soft. ABSENT: distended, guarding, rebound, tenderness Extremities exam: ABSENT: clubbing, pedal edema Musculoskeletal exam: PRESENT: normal inspection. ABSENT: deformity Neurological exam: PRESENT: awake, oriented to person, oriented to place, oriented to situation Psychiatric exam: PRESENT: flat affect Skin exam: PRESENT: dry, warm Results Laboratory Results: 08/19/20 10:50 08/19/20 10:50 08/19/20 08/19/20 10:50 10:50 WBC 3.3 L RBC 3.83 L Hgb 12.0 L Hct 34.9 L MCV 91 MCH 31.3 MCHC 34.4 RDW 14.4 H Plt Count 165 Seg Neutrophils % 72.2 Sodium 147.5 H Potassium 2.9 L* Chloride 116 H Carbon Dioxide 18 L Anion Gap 14 BUN 18 Creatinine 1.54 H Est GFR ( Amer) 53 L Glucose 132 H Calcium 9.1 Phosphorus 3.5 Magnesium 2.3 Total Bilirubin 3.5 H AST 148 H Alkaline Phosphatase 148 H Total Protein 5.9 L Albumin 3.1 L Lipase 210.4 Assessment and Plan - Diagnosis (1) Diarrhea Qualifiers: Diarrhea type: due to malabsorption Qualified Code(s): R19.7 - Diarrhea, unspecified Is this a current diagnosis for this admission?: Yes (2) Low serum potassium level Is this a current diagnosis for this admission?: Yes (3) Severe dehydration Is this a current diagnosis for this admission?: Yes (4) LUCIA (acute kidney injury) Is this a current diagnosis for this admission?: Yes - Plan Summary Summary: IV fluids. Monitor renal function via BMP. Replace potassium and monitor for improvement. Home medications continued as appropriate. PRN loperamide and Lomotil. - Time Time Spent with patient: 35 or more minutes Anticipated Discharge Disposition: Home, Self Care Anticipated Discharge Timeframe: within 72 hours - Inpatient Certification Based on my medical assessment, after consideration of the patient's comorbidities, presenting symptoms, or acuity I expect that the services needed warrant INPATIENT care.: Yes I certify that my determination is in accordance with my understanding of Medicare's requirements for reasonable and necessary INPATIENT services [42 CFR 412.3e].: Yes Medical Necessity: Need Close Monitoring Due to Risk of Patient Decompensation, Need For IV Fluids, Need For Continuous Telemetry Monitoring, Risk of Complication if Not Cared For in Hospital
[2020-08-19 15:40] LABS: C DIFFICILE GDH NEGATIVE (NEGATIVE)
[2020-08-19 18:04] LABS: APPEARANCE,URINE SLIGHTLY-CLOUDY; BILIRUBIN,URINE NEGATIVE (NEGATIVE); COLOR,URINE AMBER; GLUCOSE, URINE NEGATIVE (NEGATIVE); KETONES,URINE NEGATIVE (NEGATIVE); LEUKOCYTE ESTERASE,URINE NEGATIVE (NEGATIVE); NITRITE,URINE NEGATIVE (NEGATIVE); PROTEIN,URINE 100 mg/dL (NEGATIVE); URINE SPECIFIC GRAVITY 1.023; UROBILINOGEN,URINE NEGATIVE mg/dL (<2.0)
[2020-08-19] MEDS: RINGERS SOLUTION,LACTATED 1,000 ML IV PRN (18:25)
[2020-08-19] MEDS: LOPERAMIDE HCL 2 MG CAPSULE PO PRN (22:23)
[2020-08-19] MEDS: HEPARIN SOD (PORCINE) 5,000 UNIT/ML 1 ML VIAL SUBCUT SCH ×2 (22:23→22:24)
[2020-08-19] MEDS: ZOLPIDEM TARTRATE 5 MG TABLET PO PRN (22:23)
[2020-08-20 04:33] LABS: HEMATOCRIT 26.8 % (37.9-51.0); MEAN CORPUSCULAR HEMOGLOBIN 31.7 pg (27.0-33.4); MEAN CORPUSCULAR HGB CONC 35.1 g/dL (32.0-36.0); MEAN CORPUSCULAR VOLUME 90 fl (80-97); PLATELET COUNT 114 10^3/uL (150-450); RED BLOOD COUNT 2.97 10^6/uL (4.35-5.55); RED CELL DISTRIBUTION WIDTH 14.6 % (11.5-14.0); WHITE BLOOD COUNT 2.9 10^3/uL (4.0-10.5)
[2020-08-20 04:39] LABS: HEMOGLOBIN 9.4 g/dL (13.5-17.0)
[2020-08-20 05:11] LABS: ALBUMIN 2.2 g/dL (3.5-5.0); ALKALINE PHOSPHATASE 139 U/L (38-126); ANION GAP 8 (5-19); ASPARTATE AMINO TRANSFERASE 126 U/L (17-59); BILIRUBIN,DIRECT 1.3 mg/dL (0.0-0.4); BLOOD UREA NITROGEN 13 mg/dL (7-20); CALCIUM 8.1 mg/dL (8.4-10.2); CARBON DIOXIDE 18 mmol/L (22-30); CHLORIDE 117 mmol/L (98-107); GLUCOSE 107 mg/dL (75-110); TOTAL PROTEIN 4.5 g/dL (6.3-8.2)
[2020-08-20 05:15] LABS: POTASSIUM 2.4 mmol/L (3.6-5.0)
[2020-08-20] MEDS: HEPARIN SOD (PORCINE) 5,000 UNIT/ML 1 ML VIAL SUBCUT SCH ×3 (05:28→22:13)
[2020-08-20] MEDS: POTASSIUM CHLORIDE 20 MEQ/50 ML RTU IV SCH ×2 (06:33→10:51)
[2020-08-20] MEDS: POTASSIUM CHLORIDE 10 MEQ TABLET.ER PO SCH ×3 (10:51→16:53)
[2020-08-20] MEDS: RINGERS SOLUTION,LACTATED 1,000 ML IV PRN ×2 (10:56→18:11)
[2020-08-20] MEDS: LOPERAMIDE HCL 2 MG CAPSULE PO PRN ×2 (12:53→22:12)
--- NOTE | 2020-08-20 15:47 | PDOC PROGRESS REPORT ---
Subjective Progress Note for:: 08/20/20 Subjective:: No adverse events overnight. No new complaints. Vital signs been stable. Eating and drinking without difficulty. He still had a couple of loose bowel movements a day but the frequency has diminished substantially with holding his Xeloda and giving him some loperamide and Lomotil. Reason For Visit: DEHYDRATION,LUCIA,HYPOKALEMIA Physical Exam Vital Signs: Temp Pulse Resp BP Pulse Ox 97.3 F 67 16 128/61 H 100 08/20/20 11:04 08/20/20 11:04 08/20/20 11:04 08/20/20 11:04 08/20/20 11:04 Intake & Output 08/19/20 08/20/20 08/21/20 06:59 06:59 06:59 Intake Total 2310 810 Balance 2310 810 Weight 65.7 kg General appearance: PRESENT: no acute distress, cooperative, disheveled Respiratory exam: PRESENT: clear to auscultation darvin, symmetrical, unlabored. ABSENT: accessory muscle use, chest wall tenderness, crackles, prolonged expiratory phas, rhonchi, tachypnea, wheezes Cardiovascular exam: PRESENT: RRR, +S1, +S2 Pulses: PRESENT: normal carotid pulses Vascular exam: PRESENT: normal capillary refill GI/Abdominal exam: PRESENT: normal bowel sounds, soft. ABSENT: distended, gua rding, rebound, tenderness Extremities exam: ABSENT: clubbing, pedal edema Musculoskeletal exam: PRESENT: normal inspection. ABSENT: deformity Neurological exam: PRESENT: awake, oriented to person, oriented to place, oriented to situation Psychiatric exam: PRESENT: flat affect Skin exam: PRESENT: dry, warm Results Laboratory Results: 08/20/20 04:20 08/20/20 04:20 08/19/20 08/20/20 08/20/20 17:18 04:20 04:20 WBC 2.9 L RBC 2.97 L Hgb 9.4 L D Hct 26.8 L MCV 90 MCH 31.7 MCHC 35.1 RDW 14.6 H Plt Count 114 L Sodium 142.9 Potassium 2.4 L* Chloride 117 H Carbon Dioxide 18 L Anion Gap 8 BUN 13 Creatinine 1.27 H Est GFR ( Amer) > 60 Glucose 107 Calcium 8.1 L Total Bilirubin 3.0 H AST 126 H Alkaline Phosphatase 139 H Total Protein 4.5 L Albumin 2.2 L Urine Color JAIDA Urine Appearance SLIGHTLY-CLOUDY Urine pH 5.0 Ur Specific Edmondson 1.023 Urine Protein 100 H Urine Glucose (UA) NEGATIVE Urine Ketones NEGATIVE Urine Blood SMALL H Urine Nitrite NEGATIVE Ur Leukocyte Esterase NEGATIVE Urine WBC (Auto) 8 Urine RBC (Auto) 3 08/19/20 13:20 Stool - Stool - Final Assessment and Plan - Diagnosis (1) Diarrhea Qualifiers: 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 He has been getting some fluids and so his blood is little more dilute. He got some more IV replacement this morning and is getting a daily supplement. (3) Severe dehydration Is this a current diagnosis for this admission?: Yes Plan: Improving with IV fluids (4) LUCIA (acute kidney injury) Is this a current diagnosis for this admission?: Yes Plan: Nearly resolved with IV fluids - Plan Summary Summary: IV fluids. Monitor renal function via BMP. Replace potassium and monitor for improvement. Home medications continued as appropriate. PRN loperamide and Lomotil. - Time Time Spent with patient: 15-24 minutes Anticipated Discharge Disposition: Home, Self Care Anticipated Discharge Timeframe: within 72 hours
[2020-08-20] MEDS: TRAMADOL HCL 50 MG TABLET PO PRN (18:10)
[2020-08-20] MEDS: ZOLPIDEM TARTRATE 5 MG TABLET PO PRN (22:12)
[2020-08-21] MEDS: RINGERS SOLUTION,LACTATED 1,000 ML IV PRN ×2 (04:41→13:52)
[2020-08-21] MEDS: HEPARIN SOD (PORCINE) 5,000 UNIT/ML 1 ML VIAL SUBCUT SCH ×3 (05:40→22:09)
[2020-08-21 05:47] LABS: ALBUMIN 2.3 g/dL (3.5-5.0); ALKALINE PHOSPHATASE 159 U/L (38-126); ANION GAP 8 (5-19); ASPARTATE AMINO TRANSFERASE 144 U/L (17-59); BILIRUBIN,DIRECT 1.6 mg/dL (0.0-0.4); BILIRUBIN,TOTAL 3.6 mg/dL (0.2-1.3); BLOOD UREA NITROGEN 11 mg/dL (7-20); CALCIUM 8.5 mg/dL (8.4-10.2); CARBON DIOXIDE 17 mmol/L (22-30); CHLORIDE 119 mmol/L (98-107); GLUCOSE 103 mg/dL (75-110); POTASSIUM 3.4 mmol/L (3.6-5.0); TOTAL PROTEIN 4.7 g/dL (6.3-8.2)
--- NOTE | 2020-08-21 08:34 | PDOC PROGRESS REPORT ---
Subjective Progress Note for:: 08/21/20 Subjective:: Diarrhea has improved and patient is taking some p.o. but transaminases and bilirubin is still elevated. Discussed that he needs more days with aggressive hydration to improve this. Reason For Visit: DEHYDRATION,LUCIA,HYPOKALEMIA Physical Exam Vital Signs: Temp Pulse Resp BP Pulse Ox 97.3 F 66 16 138/81 H 99 08/20/20 23:39 08/21/20 02:00 08/20/20 23:39 08/20/20 23:39 08/20/20 23:39 Intake & Output 08/20/20 08/21/20 08/22/20 06:59 06:59 06:59 Intake Total 2310 2845 Balance 2310 2845 Weight 65.7 kg 65.7 kg General appearance: PRESENT: no acute distress, well-developed, well-nourished Head exam: PRESENT: atraumatic, normocephalic Eye exam: PRESENT: conjunctiva pink, EOMI, PERRLA. ABSENT: scleral icterus Ear exam: PRESENT: normal external ear exam Mouth exam: PRESENT: moist, tongue midline Neck exam: ABSENT: carotid bruit, JVD, lymphadenopathy, thyromegaly Respiratory exam: PRESENT: clear to auscultation darvin. ABSENT: rales, rhonchi, wheezes Cardiovascular exam: PRESENT: RRR. ABSENT: diastolic murmur, rubs, systolic m urmur Pulses: PRESENT: normal dorsalis pedis pul Vascular exam: PRESENT: normal capillary refill GI/Abdominal exam: PRESENT: normal bowel sounds, soft. ABSENT: distended, guarding, mass, organolmegaly, rebound, tenderness Rectal exam: PRESENT: deferred Extremities exam: PRESENT: full ROM. ABSENT: calf tenderness, clubbing, pedal edema Neurological exam: PRESENT: alert, awake, oriented to person, oriented to place, oriented to time, oriented to situation, CN II-XII grossly intact. ABSENT: motor sensory deficit Psychiatric exam: PRESENT: appropriate affect, normal mood. ABSENT: homicidal ideation, suicidal ideation Skin exam: PRESENT: dry, intact, warm. 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 I do not believe we will be able to do more therapy as an outpatient. Ultimately when he improves from this dehydration episode, we will get him back to surgery to discuss whether he is still a surgical candidate. (4) Dehydration Is this a current diagnosis for this admission?: Yes Plan: con't IVF, will need several more days of hydrations (5) Liver dysfunction Is this a current diagnosis for this admission?: Yes Plan: Had improved over 24 hrs but high again this am, should improve over time w/ aggressive hydration - Time Time Spent with patient: 35 or more minutes
[2020-08-21] MEDS: POTASSIUM CHLORIDE 10 MEQ TABLET.ER PO SCH ×3 (09:13→17:07)
[2020-08-21] MEDS: TRAMADOL HCL 50 MG TABLET PO PRN (12:10)
--- NOTE | 2020-08-21 16:12 | PDOC PROGRESS REPORT ---
Subjective Progress Note for:: 08/21/20 Subjective:: No adverse events overnight. No new complaints. He said he is feeling a little bit better. His diarrhea has essentially stopped. He was able to eat some food this morning and keep it and without having frequent bowel movements afterwards. He is putting out some urine. Reason For Visit: DEHYDRATION,LUCIA,HYPOKALEMIA Physical Exam Vital Signs: Temp Pulse Resp BP Pulse Ox 97.4 F 66 17 146/81 H 100 08/21/20 10:00 08/21/20 08:24 08/21/20 08:24 08/21/20 08:24 08/21/20 08:24 Intake & Output 08/20/20 08/21/20 08/22/20 06:59 06:59 06:59 Intake Total 2310 2845 918 Balance 2310 2845 918 Weight 65.7 kg 65.7 kg 65.7 kg General appearance: PRESENT: no acute distress, cooperative, disheveled Respiratory exam: PRESENT: clear to auscultation darvin, symmetrical, unlabored. ABSENT: accessory muscle use, chest wall tenderness, crackles, prolonged expiratory phas, rhonchi, tachypnea, wheezes Cardiovascular exam: PRESENT: RRR, +S1, +S2 Pulses: PRESENT: normal carotid pulses Vascular exam: PRESENT: normal capillary refill GI/Abdominal exam: PRESENT: normal bowel sounds, soft. ABSENT: distended, guarding, rebound, tenderness Extremities exam: ABSENT: clubbing, pedal edema Musculoskeletal exam: PRESENT: normal inspection. ABSENT: deformity Neurological exam: PRESENT: awake, oriented to person, oriented to place, oriented to situation Psychiatric exam: PRESENT: flat affect Skin exam: PRESENT: dry, warm Results Laboratory Results: 08/20/20 04:20 08/21/20 05:01 08/21/20 05:01 Sodium 144.4 Potassium 3.4 L Chloride 119 H Carbon Dioxide 17 L Anion Gap 8 BUN 11 Creatinine 1.20 Est GFR ( Amer) > 60 Glucose 103 Calcium 8.5 Total Bilirubin 3.6 H AST 144 H Alkaline Phosphatase 159 H Total Protein 4.7 L Albumin 2.3 L 08/19/20 13:20 Stool - Stool - Final 08/19/20 13:20 Stool - Stool Stool Culture - Final NO SALMONELLA, SHIGELLA, CAMPYLOBACTER, OR E.COLI 0157 RECOVERED. NEGATIVE FOR SHIGA TOXINS 1&2. 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 Now seems to be resolved. PRN Imodium and Lomotil are available. (2) Low serum potassium level Is this a current diagnosis for this admission?: Yes Plan: Potassium level now nearly normal. Continue with oral supplementation. (3) Severe dehydration Is this a current diagnosis for this admission?: Yes Plan: Resolved. He still seems a little dry so we are going to continue to give him some fluids for another day or so. (4) LUCIA (acute kidney injury) Is this a current diagnosis for this admission?: Yes Plan: Resolved - Plan Summary Summary: IV fluids. Monitor renal function via BMP. Replace potassium and monitor for improvement. Home medications continued as appropriate. PRN loperamide and Lomotil. - Time Time Spent with patient: 15-24 minutes Anticipated Discharge Disposition: Home, Self Care Anticipated Discharge Timeframe: within 72 hours
[2020-08-21] MEDS: LOPERAMIDE HCL 2 MG CAPSULE PO PRN ×2 (17:07→22:05)
[2020-08-21] MEDS: ZOLPIDEM TARTRATE 5 MG TABLET PO PRN (22:05)
[2020-08-22] MEDS: RINGERS SOLUTION,LACTATED 1,000 ML IV PRN (02:00)
[2020-08-22 06:32] LABS: ALBUMIN 2.2 g/dL (3.5-5.0); ALKALINE PHOSPHATASE 168 U/L (38-126); ASPARTATE AMINO TRANSFERASE 162 U/L (17-59); BILIRUBIN,TOTAL 4.1 mg/dL (0.2-1.3); BLOOD UREA NITROGEN 9 mg/dL (7-20); CALCIUM 8.3 mg/dL (8.4-10.2); GLUCOSE 93 mg/dL (75-110); POTASSIUM 4.3 mmol/L (3.6-5.0); TOTAL PROTEIN 4.6 g/dL (6.3-8.2)
[2020-08-22 06:37] LABS: ANION GAP 5 (5-19); CARBON DIOXIDE 20 mmol/L (22-30); CHLORIDE 117 mmol/L (98-107)
[2020-08-22] MEDS: HEPARIN SOD (PORCINE) 5,000 UNIT/ML 1 ML VIAL SUBCUT SCH ×3 (06:48→22:32)
--- NOTE | 2020-08-22 07:58 | PDOC PROGRESS REPORT ---
Subjective Progress Note for:: 08/22/20 Subjective:: Patient did have diarrhea overnight but overall feels better today. I discussed with him that we do note that his bilirubin and transaminases have unfortunately risen for another day in a row. Therefore we discussed the use of CT imaging to ensure that there is no progressive disease causing this. Reason For Visit: DEHYDRATION,LUCIA,HYPOKALEMIA Physical Exam Vital Signs: Temp Pulse Resp BP Pulse Ox 97.5 F 67 18 130/84 H 99 08/21/20 23:08 08/22/20 02:00 08/21/20 23:08 08/21/20 23:08 08/21/20 23:08 Intake & Output 08/21/20 08/22/20 08/23/20 06:59 06:59 06:59 Intake Total 2845 2518 Balance 2845 2518 Weight 65.7 kg 71.7 kg General appearance: PRESENT: no acute distress, well-developed, well-nourished Head exam: PRESENT: atraumatic, normocephalic Eye exam: PRESENT: conjunctiva pink, EOMI, PERRLA. ABSENT: scleral icterus Ear exam: PRESENT: normal external ear exam Mouth exam: PRESENT: moist, tongue midline Neck exam: ABSENT: carotid bruit, JVD, lymphadenopathy, thyromegaly Respiratory exam: PRESENT: clear to auscultation darvin. ABSENT: rales, rhonchi, wheezes Cardiovascular exam: PRESENT: RRR. ABSENT: diastolic murmur, rubs, systolic murmur Pulses: PRESENT: normal dorsalis pedis pul Vascular exam: PRESENT: normal capillary refill GI/Abdominal exam: PRESENT: normal bowel sounds, soft. ABSENT: distended, guarding, mass, organolmegaly, rebound, tenderness Rectal exam: PRESENT: deferred Extremities exam: PRESENT: full ROM. ABSENT: calf tenderness, clubbing, pedal edema Neurological exam: PRESENT: alert, awake, oriented to person, oriented to place, oriented to time, oriented to situation, CN II-XII grossly intact. ABSENT: motor sensory deficit Psychiatric exam: PRESENT: appropriate affect, normal mood. ABSENT: homicidal ideation, suicidal ideation Skin exam: PRESENT: dry, intact, warm. ABSENT: cyanosis, rash Results Laboratory Results: 08/20/20 04:20 08/22/20 05:10 08/22/20 05:10 Sodium 141.7 Potassium 4.3 Chloride 117 H Carbon Dioxide 20 L Anion Gap 5 BUN 9 Creatinine 1.02 Est GFR ( Amer) > 60 Glucose 93 Calcium 8.3 L Total Bilirubin 4.1 H AST 162 H Alkaline Phosphatase 168 H Total Protein 4.6 L Albumin 2.2 L 08/19/20 13:20 Stool - Stool - Final 08/19/20 13:20 Stool - Stool Stool Culture - Final NO SALMONELLA, SHIGELLA, CAMPYLOBACTER, OR E.COLI 0157 RECOVERED. NEGATIVE FOR SHIGA TOXINS 1&2. 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 Continue with supportive measures. (2) LUCIA (acute kidney injury) Is this a current diagnosis for this admission?: Yes Plan: Improved. Continue hydration. (3) Rectal adenocarcinoma Is this a current diagnosis for this admission?: Yes Plan: We will restage with CT of the chest abdomen pelvis because of the persistent bilirubin and transaminase elevation. (4) Dehydration Is this a current diagnosis for this admission?: Yes Plan: Continue hydration (5) Liver dysfunction Is this a current diagnosis for this admission?: Yes Plan: Still likely secondary to liver hit from severe diarrhea and dehydration, hypotension, but plan for CT to ensure that there is no other findings causing this. - Time Time Spent with patient: 35 or more minutes
[2020-08-22] MEDS: TRAMADOL HCL 50 MG TABLET PO PRN (08:54)
[2020-08-22] MEDS: POTASSIUM CHLORIDE 10 MEQ TABLET.ER PO SCH ×2 (08:55→13:19)
--- NOTE | 2020-08-22 09:22 | RADIOLOGY REPORT (SQ) ---
EXAM DESCRIPTION: CT CHEST WITHOUT IMAGES COMPLETED DATE/TIME: 08/22/2020 8:14 am REASON FOR STUDY: RECTAL CA RESTAGING COMPARISON: 01/28/2020 TECHNIQUE: CT scan performed of the chest without intravenous contrast. Images reviewed with lung, soft tissue and bone windows. Reconstructed coronal and sagittal MPR images reviewed. All images st ored on PACS. All CT scanners at this facility use dose modulation, iterative reconstruction, and/or weight based d osing when appropriate to reduce radiation dose to as low as reasonably achievable (ALARA). [facility]: Dose Right [facility]: CareDose [facility]: Dose Right [facility]: Teradose 4D [facility]: Smart [facility] RADIATION DOSE: CT Rad equipment meets quality standard of care and radiation dose reduction techniq ues were employed. CTDIvol: 5.7 mGy. DLP: 515 mGy-cm. LIMITATIONS: No technical limitations. FINDINGS: LUNGS AND PLEURA: Since the previous examination, new small bilateral pleural effusions a nd slight compressive atelectatic changes in the lower lobes. Centrilobular emphysematous changes mainly in the upper lobes. Very small subcentimeter perifissural nodules. Azygos lobe is again identified. No pneumothorax. The central airways are clear. HILAR AND MEDIASTINAL STRUCTURES: No significant interval changes. HEART AND VASCULAR STRUCTURES: Mild atherosclerotic changes involving the thoracic aorta. Coronary artery calcifications. No aneurysm. Trace pericardial effusion. UPPER ABDOMEN: Please see CT abdomen report. THYROID AND OTHER SOFT TISSUES: The visualized thyroid gland is stable in appearance with very small hypoattenuated nodules present. BONES: The osseous structures are stable in appearance. HARDWARE: None in the chest. OTHER: No other significant findings. IMPRESSION: 1. New small bilateral pleural effusions and slight compressive atelectatic changes in the lower lobes, since the prior study dated 01/28/2020. 2. No other significant interval changes. TECHNICAL DOCUMENTATION: JOB ID: [id number] Quality ID # [id number]: Final reports with documentation of one or more dose reduction techniques (e.g., Au tomated exposure control, adjustment of the mA and/or kV according to patient size, use of iterative reconstruction technique) 2010 [employer]- All Rights Reserved Reading location - IP/workstation name: [id number]
--- NOTE | 2020-08-22 09:46 | RADIOLOGY REPORT (SQ) ---
EXAM DESCRIPTION: CT ABD/PELVIS NO ORAL OR IV IMAGES COMPLETED DATE/TIME: 08/22/2020 8:14 am REASON FOR STUDY: RECTAL CA RESTAGING COMPARISON: 01/28/2020 TECHNIQUE: CT scan of the abdomen and pelvis performed without intravenous or oral contrast. Images reviewed with lung, soft tissue, and bone windows. Reconstructed coronal and sagittal MPR images revi ewed. All images stored on PACS. All CT scanners at this facility use dose modulation, iterative reconstruction, and/or weight based d osing when appropriate to reduce radiation dose to as low as reasonably achievable (ALARA). [facility]: Dose Right [facility]: CareDose [facility]: Dose Right [facility]: Teradose 4D [facility]: QR Artist RADIATION DOSE: TOTAL Exam DLP: 515.19 mGy. LIMITATIONS: None. FINDINGS: LOWER CHEST: Please see CT chest report. NON-CONTRASTED LIVER, SPLEEN, ADRENALS: Stable hypoattenuated right hepatic lobe lesion, likely repr esenting a cyst. Small splenule, normal anatomic variant. Evaluation limited by lack of IV contrast . PANCREAS: No masses. No peripancreatic inflammatory changes. GALLBLADDER: No identified stones by CT criteria. No inflammatory changes to suggest cholecystitis. RIGHT KIDNEY AND URETER: Stable bilateral renal cysts, the largest cyst contains a few tiny calcific ations in the lateral wall. Assessment limited by lack of IV contrast. No hydronephrosis or hydroure ter. LEFT KIDNEY AND URETER: Stable left renal cysts. Assessment limited by lack of IV contrast. No sig nificant calcifications. No hydronephrosis or hydroureter. AORTA AND RETROPERITONEUM: Atherosclerotic changes involving the abdominal aorta and branch vessels. No aneurysm. No retroperitoneal masses or adenopathy. BOWEL AND PERITONEAL CAVITY: The patient's known tumor within the rectum was better demonstrated on the MRI examination dated 01/25/2020. No IV or oral contrast was given which limits evaluation of the rectum for resolution of the mass or for any residual mass. Mild colonic diverticulosis. No free f luid. No evidence of obstruction. APPENDIX: Normal. PELVIS, BLADDER, AND ABDOMINAL WALL: The prostate gland is enlarged and stable in appearance. Stabl e mild asymmetric thickening of the left seminal vesicle. Small bilateral fat containing hernias. N o free fluid. Diffuse thickening of the urinary bladder wall. Interval resolution of the bilateral perirectal lymph nodes since the prior examination. Small calci fication in the left perirectal region, may represent small calcified lymph node. BONES: The osseous structures are stable in appearance. OTHER: No other significant finding. IMPRESSION: 1. The patient's known rectal neoplasm was better demonstrated on the MRI examination d ated 01/25/2020. No IV or oral contrast was administered which limits evaluation of the rectum. 2. The previously described bilateral perirectal lymph nodes have resolved. Small calcification in the left perirectal region, may represent small calcified lymph node. 3. Additional stable findings as above. COMMENT: Quality ID # [id number]: Final reports with documentation of one or more dose reduction techniques (e.g., Automated exposure control, adjustment of the mA and/or kV according to patient size, use of iterative reconstruction technique) TECHNICAL DOCUMENTATION: JOB ID: [id number] 2010 [employer]- All Rights Reserved Reading location - IP/workstation name: [email or web address]
[2020-08-22] MEDS ORDERED: POTASSIUM CHLORIDE 10 MEQ TABLET.ER PO ONE (13:16)
[2020-08-22] MEDS: LOPERAMIDE HCL 2 MG CAPSULE PO PRN (17:35)
--- NOTE | 2020-08-22 17:48 | PDOC PROGRESS REPORT ---
Subjective Progress Note for:: 08/22/20 Subjective:: No adverse events overnight. No new complaints. He is eating a little bit better. He has been able to rest comfortably. Good urine output. No more diarrhea. No abdominal pain. Reason For Visit: DEHYDRATION,LUCIA,HYPOKALEMIA Physical Exam Vital Signs: Temp Pulse Resp BP Pulse Ox 97.5 F 72 18 130/84 H 99 08/22/20 10:00 08/22/20 14:00 08/21/20 23:08 08/21/20 23:08 08/21/20 23:08 Intake & Output 08/21/20 08/22/20 08/23/20 06:59 06:59 06:59 Intake Total 2845 2518 1000 Balance 2845 2518 1000 Weight 65.7 kg 71.7 kg General appearance: PRESENT: no acute distress, cooperative, disheveled Respiratory exam: PRESENT: clear to auscultation darvin, symmetrical, unlabored. ABSENT: accessory muscle use, chest wall tenderness, crackles, prolonged expiratory phas, rhonchi, tachypnea, wheezes Cardiovascular exam: PRESENT: RRR, +S1, +S2 Pulses: PRESENT: normal carotid pulses Vascular exam: PRESENT: normal capillary refill GI/Abdominal exam: PRESENT: normal bowel sounds, soft. ABSENT: distended, guarding, rebound, tenderness Extremities exam: ABSENT: clubbing, pedal edema Musculoskeletal exam: PRESENT: normal inspection. ABSENT: deformity Neurological exam: PRESENT: awake, oriented to person, oriented to place, oriented to situation Psychiatric exam: PRESENT: flat affect Skin exam: PRESENT: dry, warm Results Laboratory Results: 08/20/20 04:20 08/22/20 05:10 08/22/20 05:10 Sodium 141.7 Potassium 4.3 Chloride 117 H Carbon Dioxide 20 L Anion Gap 5 BUN 9 Creatinine 1.02 Est GFR ( Amer) > 60 Glucose 93 Calcium 8.3 L Total Bilirubin 4.1 H AST 162 H Alkaline Phosphatase 168 H Total Protein 4.6 L Albumin 2.2 L Impressions: Abdomen/Pelvis CT 08/22/20 00:00 IMPRESSION: 1. The patient's known rectal neoplasm was better demonstrated on the MRI examination dated 01/25/2020. No IV or oral contrast was administered which limits evaluation of the rectum. 2. The previously described bilateral perirectal lymph nodes have resolved. Small calcification in the left perirectal region, may represent small calcified lymph node. 3. Additional stable findings as above. Chest CT 08/22/20 00:00 IMPRESSION: 1. New small bilateral pleural effusions and slight compressive atelectatic changes in the lower lobes, since the prior study dated 01/28/2020. 2. No other significant interval changes. 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 Now seems to be resolved. PRN Imodium and Lomotil are available. (2) Low serum potassium level Is this a current diagnosis for this admission?: Yes Plan: Potassium level now nearly normal. Continue with oral supplementation. (3) Severe dehydration Is this a current diagnosis for this admission?: Yes Plan: Resolved. Fluids discontinued. (4) LUCIA (acute kidney injury) Is this a current diagnosis for this admission?: Yes Plan: Resolved (5) Liver dysfunction Is this a current diagnosis for this admission?: Yes Plan: His transaminases and bilirubin have been slightly elevated. CT scan was done, a noncontrasted study did not show anything terribly remarkable regarding the liver. Stop his IV fluids because he looked like he was starting to show some signs of mild fluid overload. We will monitor overnight and follow-up with Dr. Ambriz to coordinate outpatient follow-up. - Plan Summary Summary: IV fluids. Monitor renal function via BMP. Replace potassium and monitor for improvement. Home medications continued as appropriate. PRN loperamide and Lomotil. - Time Time Spent with patient: 15-24 minutes Anticipated Discharge Disposition: Home with Home Health Anticipated Discharge Timeframe: within 72 hours
[2020-08-22] MEDS ORDERED: ACETAMINOPHEN 325 MG TABLET PO PRN (20:25)
[2020-08-22] MEDS: ZOLPIDEM TARTRATE 5 MG TABLET PO PRN (22:34)
[2020-08-23] MEDS: HEPARIN SOD (PORCINE) 5,000 UNIT/ML 1 ML VIAL SUBCUT SCH ×3 (06:06→21:42)
--- NOTE | 2020-08-23 08:07 | PDOC PROGRESS REPORT ---
Subjective Progress Note for:: 08/23/20 Subjective:: Pt having diarrhea this am when seen. Still feels bad. Reviewed CT imaging, no evidence of liver abnormality or metastatic disease. The rectal lesion is improved compared w/ last imaging done a few months ago Reason For Visit: DEHYDRATION,LUCIA,HYPOKALEMIA Physical Exam Vital Signs: Temp Pulse Resp BP Pulse Ox 98.4 F 66 16 131/67 H 98 08/22/20 20:14 08/23/20 02:00 08/22/20 20:14 08/22/20 20:14 08/22/20 20:14 Intake & Output 08/22/20 08/23/20 08/24/20 06:59 06:59 06:59 Intake Total 2518 2069 Balance 2518 2069 Weight 71.7 kg 71.7 kg General appearance: PRESENT: no acute distress, well-developed, well-nourished Head exam: PRESENT: atraumatic, normocephalic Eye exam: PRESENT: conjunctiva pink, EOMI, PERRLA. ABSENT: scleral icterus Ear exam: PRESENT: normal external ear exam Mouth exam: PRESENT: moist, tongue midline Neck exam: ABSENT: carotid bruit, JVD, lymphadenopathy, thyromegaly Respiratory exam: PRESENT: clear to auscultation darvin. ABSENT: rales, rhonchi, wheezes Cardiovascular exam: PRESENT: RRR. ABSENT: diastolic murmur, rubs, systolic murmur Pulses: PRESENT: normal dorsalis pedis pul Vascular exam: PRESENT: normal capillary refill GI/Abdominal exam: PRESENT: normal bowel sounds, soft. ABSENT: distended, guarding, mass, organolmegaly, rebound, tenderness Rectal exam: PRESENT: deferred Extremities exam: PRESENT: full ROM. ABSENT: calf tenderness, clubbing, pedal edema Neurological exam: PRESENT: alert, awake, oriented to person, oriented to place, oriented to time, oriented to situation, CN II-XII grossly intact. ABSENT: motor sensory deficit Psychiatric exam: PRESENT: appropriate affect, normal mood. ABSENT: homicidal ideation, suicidal ideation Skin exam: PRESENT: dry, intact, warm. ABSENT: cyanosis, rash Results Laboratory Results: 08/20/20 04:20 08/22/20 05:10 Impressions: Abdomen/Pelvis CT 08/22/20 00:00 IMPRESSION: 1. The patient's known rectal neoplasm was better demonstrated on the MRI examination dated 01/25/2020. No IV or oral contrast was administered which limits evaluation of the rectum. 2. The previously described bilateral perirectal lymph nodes have resolved. Small calcification in the left perirectal region, may represent small calcified lymph node. 3. Additional stable findings as above. Chest CT 08/22/20 00:00 IMPRESSION: 1. New small bilateral pleural effusions and slight compressive atelectatic changes in the lower lobes, since the prior study dated 01/28/2020. 2. No other significant interval changes. 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, unspecified; R19.7 - Diarrhea, unspecified Is this a current diagnosis for this admission?: Yes Plan: Still persistent, con't IVF and supportive meds (2) LUCIA (acute kidney injury) Is this a current diagnosis for this admission?: Yes Plan: IMproved but will be tenous until diarrhea better (3) Rectal adenocarcinoma Is this a current diagnosis for this admission?: Yes Plan: Overall no evidence of mets, primary rectal lesion seems to have responded well to chemo/xrt and further chemo (4) Dehydration Is this a current diagnosis for this admission?: Yes Plan: 2nd diarrhea cont' hydration (5) Liver dysfunction Is this a current diagnosis for this admission?: Yes Plan: this is now most likely noted to be 2nd to the diarrhea/hypotension at home, should improve over time but slowly. I've asked hospitalist team to look into other causes also - Time Time Spent with patient: 35 or more minutes
[2020-08-23] MEDS: TRAMADOL HCL 50 MG TABLET PO PRN (09:53)
[2020-08-23] MEDS: MULTIVITAMIN TABLET PO SCH (09:53)
[2020-08-23] MEDS ORDERED: (PENDING PHARMACY ID) (Vit A/Vit C/Vit E/Zinc/Copper [Preservision Areds Tablet] 1 EACH) PO SCH (10:00)
[2020-08-23 13:51] LABS: ANION GAP 5 (5-19); BLOOD UREA NITROGEN 12 mg/dL (7-20); CALCIUM 8.7 mg/dL (8.4-10.2); CARBON DIOXIDE 22 mmol/L (22-30); CHLORIDE 108 mmol/L (98-107); GLUCOSE 103 mg/dL (75-110); PHOSPHORUS 2.5 mg/dL (2.5-4.5); POTASSIUM 4.2 mmol/L (3.6-5.0)
[2020-08-23] MEDS: LOPERAMIDE HCL 2 MG CAPSULE PO PRN (13:55)
--- NOTE | 2020-08-23 16:20 | PDOC PROGRESS REPORT ---
Subjective Progress Note for:: 08/23/20 Subjective:: LING DENNIS is a 79 year old male with stage II rectal cancer receiving total neoadjuvant chemotherapy with Xeloda, oxaliplatin. Her last dose of Xeloda was about 14 days ago. He was admitted last week for a few days with severe dehydration and diarrhea. Diarrhea improved and he was discharged home but then diarrhea worsened again and he has returned to the ER. Unfortunately now, there is more electrolyte abnormalities with creatinine elevation, BUN is elevated, bilirubin and transaminases, alk phos all are elevated. 08/23/2020. No acute events overnight. Patient has had one semi-liquid bowel movement today, still feeling lethargic and fatigued otherwise denies any fever, chills, nausea, vomiting, abdominal pain or any urinary symptoms. Reason For Visit: DEHYDRATION,LUCIA,HYPOKALEMIA Physical Exam Vital Signs: Temp Pulse Resp BP Pulse Ox 98.1 F 76 18 151/81 H 96 08/23/20 07:46 08/23/20 07:46 08/23/20 07:46 08/23/20 07:46 08/23/20 07:46 Intake & Output 08/22/20 08/23/20 08/24/20 06:59 06:59 06:59 Intake Total 2518 2070 Balance 2518 2070 Weight 71.7 kg 71.7 kg General appearance: PRESENT: no acute distress, well-developed, well-nourished Head exam: PRESENT: atraumatic, normocephalic Eye exam: PRESENT: scleral icterus Neck exam: ABSENT: carotid bruit, JVD, lymphadenopathy, thyromegaly Respiratory exam: PRESENT: clear to auscultation darvin. ABSENT: rales, rhonchi, wheezes Cardiovascular exam: PRESENT: RRR. ABSENT: diastolic murmur, rubs, systolic murmur GI/Abdominal exam: PRESENT: normal bowel sounds, soft. ABSENT: distended, gu arding, mass, organolmegaly, rebound, tenderness Extremities exam: PRESENT: full ROM. ABSENT: calf tenderness, clubbing, pedal edema Neurological exam: PRESENT: alert, awake, oriented to person, oriented to place, oriented to time, oriented to situation, CN II-XII grossly intact. ABSENT: motor sensory deficit Skin exam: PRESENT: jaundice Results Laboratory Results: 08/20/20 04:20 08/23/20 12:36 08/23/20 12:36 Sodium 134.6 L Potassium 4.2 Chloride 108 H Carbon Dioxide 22 Anion Gap 5 BUN 12 Creatinine 0.95 Est GFR ( Amer) > 60 Glucose 103 Calcium 8.7 Phosphorus 2.5 Magnesium 1.5 L Impressions: Abdomen/Pelvis CT 08/22/20 00:00 IMPRESSION: 1. The patient's known rectal neoplasm was better demonstrated on the MRI examination dated 01/25/2020. No IV or oral contrast was administered which limits evaluation of the rectum. 2. The previously described bilateral perirectal lymph nodes have resolved. Small calcification in the left perirectal region, may represent small calcified lymph node. 3. Additional stable findings as above. Chest CT 08/22/20 00:00 IMPRESSION: 1. New small bilateral pleural effusions and slight compressive atelectatic changes in the lower lobes, since the prior study dated 01/28/2020. 2. No other significant interval changes. 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 Possibly due to due to Xeloda is currently on hold. C. difficile negative. Does not seem to be infectious in etiology however stool culture, ova and parasite, stool WBC stool Gram stain pending. Continue fluid resuscitation guided by volume status, monitor electrolytes and replace as needed, once proven to be noninfectious can continue antidiarrheals. (2) Liver dysfunction Is this a current diagnosis for this admission?: Yes Plan: Unfortunately isoenzymes are still trending up. Not sure if this is due to chemotherapy or diarrhea. Patient does not have history of cirrhosis or h epatitis. CT abdomen is no acute changes, pending abdominal ultrasound. Dr. Bocanegra from gastroenterology have been consulted by oncologist. Monitor liver enzymes, continue treating underlying diarrhea, monitor vitals. (3) Low serum potassium level Is this a current diagnosis for this admission?: Yes Plan: Potassium level now nearly normal. Continue with oral supplementation. (4) Severe dehydration Is this a current diagnosis for this admission?: Yes Plan: Resolved. Fluids discontinued. (5) LUCIA (acute kidney injury) Is this a current diagnosis for this admission?: Yes Plan: Resolved - Time Time Spent with patient: 35 or more minutes Medications reviewed and adjusted accordingly: Yes Anticipated Discharge Disposition: Home with Home Health Anticipated Discharge Timeframe: within 72 hours
[2020-08-23] MEDS ORDERED: MAGNESIUM SULFATE/D5W 1 GM/100 ML RTUPB IV ONE (17:30)
[2020-08-23] MEDS: MAGNESIUM OXIDE 400 MG TABLET PO SCH (17:49)
[2020-08-23] MEDS: TAMSULOSIN HCL 0.4 MG CAP.SR.24H PO SCH (17:49)
[2020-08-23] MEDS: POTASSIUM CHLORIDE 10 MEQ TABLET.ER PO SCH (17:49)
[2020-08-23] MEDS: LISINOPRIL 10 MG TABLET PO SCH (17:49)
[2020-08-23] MEDS: NORMAL SALINE 1000 ML 1,000 ML IV PRN (17:50)
[2020-08-23] MEDS ORDERED: (PENDING PHARMACY ID) (Lisinopril [Lisinopril] 20 MG) PO SCH (18:00)
[2020-08-23] MEDS: METOPROLOL TARTRATE 25 MG TABLET PO SCH (21:44)
[2020-08-23] MEDS: ATORVASTATIN CALCIUM 20 MG TABLET PO SCH (21:44)
[2020-08-23] MEDS: ZOLPIDEM TARTRATE 5 MG TABLET PO PRN (21:44)
[2020-08-24] MEDS: HEPARIN SOD (PORCINE) 5,000 UNIT/ML 1 ML VIAL SUBCUT SCH ×3 (06:31→21:14)
[2020-08-24 07:30] LABS: HEMATOCRIT 31.1 % (37.9-51.0); HEMOGLOBIN 10.9 g/dL (13.5-17.0); MEAN CORPUSCULAR HEMOGLOBIN 31.8 pg (27.0-33.4); MEAN CORPUSCULAR HGB CONC 35.2 g/dL (32.0-36.0); MEAN CORPUSCULAR VOLUME 91 fl (80-97); PLATELET COUNT 126 10^3/uL (150-450); RED BLOOD COUNT 3.44 10^6/uL (4.35-5.55); RED CELL DISTRIBUTION WIDTH 15.9 % (11.5-14.0); WHITE BLOOD COUNT 3.5 10^3/uL (4.0-10.5)
[2020-08-24 07:46] LABS: ALBUMIN 2.7 g/dL (3.5-5.0); ALKALINE PHOSPHATASE 231 U/L (38-126); ANION GAP 6 (5-19); ASPARTATE AMINO TRANSFERASE 242 U/L (17-59); BILIRUBIN,DIRECT 3.6 mg/dL (0.0-0.4); BILIRUBIN,TOTAL 6.7 mg/dL (0.2-1.3); BLOOD UREA NITROGEN 13 mg/dL (7-20); CALCIUM 8.7 mg/dL (8.4-10.2); CARBON DIOXIDE 22 mmol/L (22-30); CHLORIDE 108 mmol/L (98-107); GLUCOSE 94 mg/dL (75-110); POTASSIUM 4.5 mmol/L (3.6-5.0); TOTAL PROTEIN 5.3 g/dL (6.3-8.2)
--- NOTE | 2020-08-24 08:01 | PDOC PROGRESS REPORT ---
Subjective Progress Note for:: 08/24/20 Subjective:: Patient feeling clinically better. Diarrhea has improved. Reason For Visit: DEHYDRATION,LUCIA,HYPOKALEMIA Physical Exam Vital Signs: Temp Pulse Resp BP Pulse Ox 97.5 F 65 16 113/61 95 08/24/20 00:00 08/24/20 02:00 08/24/20 00:00 08/24/20 00:00 08/24/20 00:00 Intake & Output 08/23/20 08/24/20 08/25/20 06:59 06:59 06:59 Intake Total 2069 750 Balance 2069 750 Weight 71.7 kg 71.7 kg General appearance: PRESENT: no acute distress, well-developed, well-nourished Head exam: PRESENT: atraumatic, normocephalic Eye exam: PRESENT: conjunctiva pink, EOMI, PERRLA. ABSENT: scleral icterus Ear exam: PRESENT: normal external ear exam Mouth exam: PRESENT: moist, tongue midline Neck exam: ABSENT: carotid bruit, JVD, lymphadenopathy, thyromegaly Respiratory exam: PRESENT: clear to auscultation darvin. ABSENT: rales, rhonchi, wheezes Cardiovascular exam: PRESENT: RRR. ABSENT: diastolic murmur, rubs, systolic murmur Pulses: PRESENT: normal dorsalis pedis pul Vascular exam: PRESENT: normal capillary refill GI/Abdominal exam: PRESENT: normal bowel sounds, soft. ABSENT: distended, guarding, mass, organolmegaly, rebound, tenderness Rectal exam: PRESENT: deferred Extremities exam: PRESENT: full ROM. ABSENT: calf tenderness, clubbing, pedal edema Neurological exam: PRESENT: alert, awake, oriented to person, oriented to place, oriented to time, oriented to situation, CN II-XII grossly intact. ABSENT: motor sensory deficit Psychiatric exam: PRESENT: appropriate affect, normal mood. ABSENT: homicidal ideation, suicidal ideation Skin exam: PRESENT: dry, intact, warm. ABSENT: cyanosis, rash Results Laboratory Results: 08/24/20 07:01 08/24/20 07:01 08/23/20 08/24/20 08/24/20 12:36 07:01 07:01 WBC 3.5 L RBC 3.44 L Hgb 10.9 L Hct 31.1 L MCV 91 MCH 31.8 MCHC 35.2 RDW 15.9 H Plt Count 126 L Sodium 134.6 L 135.6 L Potassium 4.2 4.5 Chloride 108 H 108 H Carbon Dioxide 22 22 Anion Gap 5 6 BUN 12 13 Creatinine 0.95 1.06 Est GFR ( Amer) > 60 > 60 Glucose 103 94 Calcium 8.7 8.7 Phosphorus 2.5 Magnesium 1.5 L 1.8 Total Bilirubin 6.7 H AST 242 H Alkaline Phosphatase 231 H Total Protein 5.3 L Albumin 2.7 L Impressions: Abdomen/Pelvis CT 08/22/20 00:00 IMPRESSION: 1. The patient's known rectal neoplasm was better demonstrated on the MRI examination dated 01/25/2020. No IV or oral contrast was administered which limits evaluation of the rectum. 2. The previously described bilateral perirectal lymph nodes have resolved. Small calcification in the left perirectal region, may represent small calcified lymph node. 3. Additional stable findings as above. Chest CT 08/22/20 00:00 IMPRESSION: 1. New small bilateral pleural effusions and slight compressive atelectatic changes in the lower lobes, since the prior study dated 01/28/2020. 2. No other significant interval changes. 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, unspecified; R19.7 - Diarrhea, unspecified Is this a current diagnosis for this admission?: Yes Plan: Secondary to Xeloda, improving (2) LUCIA (acute kidney injury) Is this a current diagnosis for this admission?: Yes Plan: Improving (3) Rectal adenocarcinoma Is this a current diagnosis for this admission?: Yes Plan: No further treatment planned (4) Dehydration Is this a current diagnosis for this admission?: Yes Plan: Improving, IV fluids held because of concern of overload (5) Liver dysfunction Is this a current diagnosis for this admission?: Yes Plan: Bilirubin still rising, CTs were negative for metastatic disease, likely liver hip from previous hypotension and diarrhea, I have placed a call to Dr. Bocanegra of GI to see if he would see the patient and follow along. If GI is unavailable to see patient then I will try and contact other sources. - Time Time Spent with patient: 35 or more minutes
[2020-08-24] MEDS: POTASSIUM CHLORIDE 10 MEQ TABLET.ER PO SCH ×2 (10:13→17:02)
[2020-08-24] MEDS: METOPROLOL TARTRATE 25 MG TABLET PO SCH ×2 (10:13→21:09)
[2020-08-24] MEDS: MULTIVITAMIN TABLET PO SCH (10:14)
[2020-08-24] MEDS: MAGNESIUM OXIDE 400 MG TABLET PO SCH ×2 (10:14→17:02)
--- NOTE | 2020-08-24 14:14 | PDOC PROGRESS REPORT ---
Subjective Progress Note for:: 08/24/20 Subjective:: LING DENNIS is a 79 year old male with stage II rectal cancer receiving total neoadjuvant chemotherapy with Xeloda, oxaliplatin. Her last dose of Xeloda was about 14 days ago. He was admitted last week for a few days with severe dehydration and diarrhea. Diarrhea improved and he was discharged home but then diarrhea worsened again and he has returned to the ER. Unfortunately now, there is more electrolyte abnormalities with creatinine elevation, BUN is elevated, bilirubin and transaminases, alk phos all are elevated. 08/23/2020. No acute events overnight. Patient has had one semi-liquid bowel movement today, still feeling lethargic and fatigued otherwise denies any fever, chills, nausea, vomiting, abdominal pain or any urinary symptoms. 08/24/2020. No acute events overnight. Patient reporting moderate improvement of overall energy, asking if he walk in the hallways, has had one bowel movement yesterday, denies any fever, chills, nausea, vomiting, diarrhea, constipation or any urinary symptoms. Unfortunate patient liver enzymes are still trending up. Possible discharge home tomorrow. Reason For Visit: DEHYDRATION,LUCIA,HYPOKALEMIA Physical Exam Vital Signs: Temp Pulse Resp BP Pulse Ox 97.9 F 71 18 118/73 99 08/24/20 11:26 08/24/20 11:26 08/24/20 11:26 08/24/20 11:26 08/24/20 11:26 Intake & Output 08/23/20 08/24/20 08/25/20 06:59 06:59 06:59 Intake Total 2069 750 Balance 2069 750 Weight 71.7 kg 71.7 kg Results Laboratory Results: 08/24/20 07:01 08/24/20 07:01 08/24/20 08/24/20 07:01 07:01 WBC 3.5 L RBC 3.44 L Hgb 10.9 L Hct 31.1 L MCV 91 MCH 31.8 MCHC 35.2 RDW 15.9 H Plt Count 126 L Sodium 135.6 L Potassium 4.5 Chloride 108 H Carbon Dioxide 22 Anion Gap 6 BUN 13 Creatinine 1.06 Est GFR ( Amer) > 60 Glucose 94 Calcium 8.7 Magnesium 1.8 Total Bilirubin 6.7 H AST 242 H Alkaline Phosphatase 231 H Total Protein 5.3 L Albumin 2.7 L Impressions: Abdomen/Pelvis CT 08/22/20 00:00 IMPRESSION: 1. The patient's known rectal neoplasm was better demonstrated on the MRI examination dated 01/25/2020. No IV or oral contrast was administered which limits evaluation of the rectum. 2. The previously described bilateral perirectal lymph nodes have resolved. Small calcification in the left perirectal region, may represent small calcified lymph node. 3. Additional stable findings as above. Chest CT 08/22/20 00:00 IMPRESSION: 1. New small bilateral pleural effusions and slight compressive atelectatic changes in the lower lobes, since the prior study dated 01/28/2020. 2. No other significant interval changes. 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 Possibly due to due to Xeloda is currently on hold. C. difficile negative. Does not seem to be infectious in etiology however stool culture, ova and parasite, stool WBC stool Gram stain pending. Continue fluid resuscitation guided by volume status, monitor electrolytes and replace as needed, once proven to be noninfectious can continue antidiarrheals. (2) Liver dysfunction Is this a current diagnosis for this admission?: Yes Plan: Unfortunately isoenzymes are still trending up. Not sure if this is due to chemotherapy or diarrhea. Patient does not have history of cirrhosis or hepatitis. CT abdomen is no acute changes, pending abdominal ultrasound. Dr. Bocanegra from gastroenterology have been consulted by oncologist. Monitor liver enzymes, continue treating underlying diarrhea, monitor vitals. (3) Low serum potassium level Is this a current diagnosis for this admission?: Yes Plan: Likely due to gastrointestinal losses. Replete. Continue potassium supp lementation. BMP tomorrow. (4) Severe dehydration Is this a current diagnosis for this admission?: Yes Plan: Secondary to diarrhea. Euvolemic. Continue fluid resuscitation. (5) LUCIA (acute kidney injury) Is this a current diagnosis for this admission?: Yes Plan: Prerenal most likely to diarrhea. Resolved. - Time Time Spent with patient: 15-24 minutes Medications reviewed and adjusted accordingly: Yes Anticipated Discharge Disposition: Home, Self Care Anticipated Discharge Timeframe: within 48 hours
--- NOTE | 2020-08-24 14:51 | RADIOLOGY REPORT (SQ) ---
EXAM DESCRIPTION: U/S ABDOMEN COMPLETE W/DOPPLER IMAGES COMPLETED DATE/TIME: 08/24/2020 2:28 pm REASON FOR STUDY: jaundice, r/o biliary obstruction/thrombosis COMPARISON: CT 08/22/2020. TECHNIQUE: Dynamic and static grayscale images acquired of the abdomen and recorded on PACS. Additio nal selected color Doppler and spectral images recorded. Note: Exam does not meet criteria for a complete doppler/duplex scan LIMITATIONS: Study limited due to acoustical interference from fat or from air in the bowel. FINDINGS: PANCREAS: Obscured. LIVER: Cysts, no solid masses. No dilated ducts. LIVER VASCULATURE: Normal directional flow of the main portal vein and hepatic veins. GALLBLADDER: Sludge. No stones. Normal wall thickness. No pericholecystic fluid. ULTRASOUND-DETECTED ALMAZAN'S SIGN: Negative. INTRAHEPATIC DUCTS AND COMMON DUCT:CBD and intrahepatic ducts normal caliber. No filling defects. INFERIOR VENA CAVA: Normal flow. AORTA: No aneurysm. RIGHT KIDNEY: Normal size. 8 mm cyst. No solid or suspicious masses. No hydronephrosis. No c alcifications. LEFT KIDNEY: Normal size. Normal echogenicity. No solid or suspicious masses. No hydronephrosi s. No calcifications. SPLEEN:Normal size. No solid masses. PERITONEAL AND PLEURAL SPACES: No ascites or effusions. OTHER: No other significant finding. IMPRESSION: Technical limitations. No definite biliary dilatation. TECHNICAL DOCUMENTATION: JOB ID: [id number] 2010 [employer]- All Rights Reserved Reading location - IP/workstation name: [email or web address]
[2020-08-24] MEDS: LISINOPRIL 10 MG TABLET PO SCH (17:02)
[2020-08-24] MEDS: TAMSULOSIN HCL 0.4 MG CAP.SR.24H PO SCH (17:02)
--- NOTE | 2020-08-24 21:02 | PDOC CONSULTATION ---
Consultation Consult Date: 08/24/20 Provider Consulted: AMRIK CERRATO History of Present Illness Admission Date/PCP: 08/19/20 12:54 JOCELYNE MCDERMOTT PA-C History of Present Illness: LING DENNIS is a 79 year old male Patient who was admitted on 08/19/2020 with diarrhea, dehydration, and weakness. He has stage II rectal cancer and has been receiving chemoradiation. His last dose of Xeloda was about 3 weeks ago. He is refusing surgery. Consultation was requested for abnormal liver function test. His LFTs were normal back in January of this year but by 08/14/2020 only his bilirubin was elevated at 1.8. On 08/19/2020 his bilirubin was 3.5, AST 148, ALT 140, alkaline phosphatase 148. By 08/24/2020 his bilirubin has increased to 6.7, transaminases 242, 240, and alkaline phosphatase of 231. He has no prior history of liver disease. He had been having issues with diarrhea over the last few weeks but currently there is no diarrhea. I also reviewed his medication list in the hospital and it does not include significantly hepatotoxic drug. He had an abdominal ultrasound today that showed no biliary dilation or gallstones. A CAT scan a few days ago was also unremarkable. Past Medical History Cardiac Medical History: Reports: Hyperlipidema, Hypertension Denies: Coronary Artery Disease, Myocardial Infarction Pulmonary Medical History: Denies: Asthma, Bronchitis, Chronic Obstructive Pulmonary Disease (COPD), Pneumonia Neurological Medical History: Denies: Seizures Malignancy Medical History: Reports: Colorectal Cancer Musculoskeltal Medical History: Denies: Arthritis Psychiatric Medical History: Denies: Depression Hematology: Denies: Anemia Past Surgical History Past Surgical History: Reports: Orthopedic Surgery - right knee scope, Other - Colonoscopy with biopsy Social History Smoking Status: Former Smoker Electronic Cigarette use?: No Frequency of Alcohol Use: Social Hx Recreational Drug Use: No Hx Prescription Drug Abuse: No - Advance Directive Resuscitation Status: Full Code Family History Family History: Reviewed & Not Pertinent, Hypertension Parental Family History Reviewed: No Children Family History Reviewed: NA Sibling(s) Family History Reviewed.: NA Medication/Allergy Home Medications: Multivitamin [Multiple Vitamins] 1 each PO DAILY 04/25/13 Rosuvastatin Calcium [Crestor 10 mg Tablet] 10 mg PO QPM 04/25/13 Lisinopril 20 mg PO QPM 08/14/20 Tamsulosin HCl [Flomax 0.4 mg Cap.sr] 0.4 mg PO QPM 08/14/20 Vit A/Vit C/Vit E/Zinc/Copper [Preservision Areds Tablet] 1 each PO BID 08/14/20 Zolpidem Tartrate [Ambien] 10 mg PO QHS 08/14/20 Allergies/Adverse Reactions: No Known Allergies Allergy (Verified 08/14/20 12:13) Review of Systems All systems: reviewed and no additional remarkable complaints except as stated Physical Exam Vital Signs: Temp Pulse Resp BP Pulse Ox 98.4 F 70 18 114/69 96 08/24/20 15:10 08/24/20 15:10 08/24/20 15:10 08/24/20 15:10 08/24/20 15:10 Intake & Output 08/23/20 08/24/20 08/25/20 06:59 06:59 06:59 Intake Total 207 750 Balance 2069 750 Weight 71.7 kg 71.7 kg Exam: General: Patient is alert and looks well. HEENT: There is no pallor or jaundice. PERRLA. Oropharynx normal Respiratory: No chest deformity. No respiratory distress. Chest wall palpitation was unremarkable. Breath sounds were normal Cardiovascular: Heart sounds 1 and 2 normal with no murmurs. Abdominal: Not distended. Soft and nontender. Liver and spleen not palpable. No ascites demonstrated. Bowel sounds active. Rectal examination was deferred. Extremities: No edema Neurological: Alert and oriented x4. Grossly nonfocal. Normal speech Skin: No significant rash Psychological: Normal affect Results Laboratory Results: 08/24/20 07:01 08/24/20 07:01 08/24/20 08/24/20 08/24/20 07:01 07:01 12:48 WBC 3.5 L RBC 3.44 L Hgb 10.9 L Hct 31.1 L MCV 91 MCH 31.8 MCHC 35.2 RDW 15.9 H Plt Count 126 L Sodium 135.6 L Potassium 4.5 Chloride 108 H Carbon Dioxide 22 Anion Gap 6 BUN 13 Creatinine 1.06 Est GFR ( Amer) > 60 Glucose 94 Calcium 8.7 Magnesium 1.8 Total Bilirubin 6.7 H AST 242 H Alkaline Phosphatase 231 H Total Protein 5.3 L Albumin 2.7 L Stool for White Cells NO WBCs SEEN Impressions: Abdomen/Pelvis CT 08/22/20 00:00 IMPRESSION: 1. The patient's known rectal neoplasm was better demonstrated on the MRI examination dated 01/25/2020. No IV or oral contrast was administered which limits evaluation of the rectum. 2. The previously described bilateral perirectal lymph nodes have resolved. Small calcification in the left perirectal region, may represent small calcified lymph node. 3. Additional stable findings as above. Chest CT 08/22/20 00:00 IMPRESSION: 1. New small bilateral pleural effusions and slight compressive atelectatic changes in the lower lobes, since the prior study dated 01/28/2020. 2. No other significant interval changes. Abdomen Ultrasound 08/24/20 00:00 IMPRESSION: Technical limitations. No definite biliary dilatation. Assessment & Plan - Diagnosis (1) Abnormal liver function Is this a current diagnosis for this admission?: Yes Plan: The etiology for his liver disease is unclear. This has developed over the last 4 to 5 weeks. It could be infectious, medication side effect this could be from medication side effects or infections. His severe diarrhea and dehydration may also have contributed to a shock liver. His diarrhea has resolved and he is feeling a lot better. We should continue to monitor his LFTs and hopefully the bilirubin will start to trend downwards. I will send him for hepatitis and autoimmune serology and we should monitor his PT/INR. (3) Rectal adenocarcinoma Is this a current diagnosis for this admission?: Yes
[2020-08-24] MEDS: ZOLPIDEM TARTRATE 5 MG TABLET PO PRN (21:09)
[2020-08-24] MEDS: ATORVASTATIN CALCIUM 20 MG TABLET PO SCH (21:09)
[2020-08-25] MEDS: NORMAL SALINE 1000 ML 1,000 ML IV PRN (01:10)
[2020-08-25] MEDS ORDERED: HALOPERIDOL LACTATE INJ 5 MG/1 ML VIAL ONE (01:29)
[2020-08-25] MEDS ORDERED: HALOPERIDOL LACTATE INJ 5 MG/1 ML VIAL IM ONE (02:00)
[2020-08-25] MEDS: HEPARIN SOD (PORCINE) 5,000 UNIT/ML 1 ML VIAL SUBCUT SCH ×3 (06:00→21:48)
[2020-08-25 06:47] LABS: INTERNATIONAL RATION (INR) 1.27; PROTHROMBIN TIME 16.1 SEC (11.4-15.4)
[2020-08-25 07:20] LABS: ALBUMIN 2.6 g/dL (3.5-5.0); ALKALINE PHOSPHATASE 292 U/L (38-126); ASPARTATE AMINO TRANSFERASE 282 U/L (17-59); BILIRUBIN,DIRECT 3.4 mg/dL (0.0-0.4); BILIRUBIN,TOTAL 5.8 mg/dL (0.2-1.3); TOTAL PROTEIN 4.9 g/dL (6.3-8.2)
--- NOTE | 2020-08-25 07:58 | PDOC PROGRESS REPORT ---
Subjective Progress Note for:: 08/25/20 Subjective:: Patient feeling better this morning. He is eager to go home but I discussed with him that yesterday was the first day of his bilirubin trended down. And he discharged too early last time. Therefore would like for him to stay through the weekend to make sure that Friday and Friday have bilirubin drops. Then we can consider DC by Friday if patient is tolerating diet well, not having diarrhea and LFTs continue to trend down. Reason For Visit: DEHYDRATION,LUCIA,HYPOKALEMIA Physical Exam Vital Signs: Temp Pulse Resp BP Pulse Ox 98.0 F 58 L 18 92/52 L 95 08/24/20 23:59 08/25/20 04:45 08/24/20 23:59 08/24/20 23:59 08/24/20 23:59 Intake & Output 08/24/20 08/25/20 08/26/20 06:59 06:59 06:59 Intake Total 1750 Balance 1750 Weight 71.7 kg 71.7 kg General appearance: PRESENT: no acute distress, well-developed, well-nourished Head exam: PRESENT: atraumatic, normocephalic Eye exam: PRESENT: conjunctiva pink, EOMI, PERRLA. ABSENT: scleral icterus Ear exam: PRESENT: normal external ear exam Mouth exam: PRESENT: moist, tongue midline Neck exam: ABSENT: carotid bruit, JVD, lymphadenopathy, thyromegaly Respiratory exam: PRESENT: clear to auscultation darvin. ABSENT: rales, rhonchi, wheezes Cardiovascular exam: PRESENT: RRR. ABSENT: diastolic murmur, rubs, systolic murmur Pulses: PRESENT: normal dorsalis pedis pul Vascular exam: PRESENT: normal capillary refill GI/Abdominal exam: PRESENT: normal bowel sounds, soft. ABSENT: distended, guarding, mass, organolmegaly, rebound, tenderness Rectal exam: PRESENT: deferred Extremities exam: PRESENT: full ROM. ABSENT: calf tenderness, clubbing, pedal e larry Neurological exam: PRESENT: alert, awake, oriented to person, oriented to place, oriented to time, oriented to situation, CN II-XII grossly intact. ABSENT: motor sensory deficit Psychiatric exam: PRESENT: appropriate affect, normal mood. ABSENT: homicidal ideation, suicidal ideation Skin exam: PRESENT: dry, intact, warm. ABSENT: cyanosis, rash Results Laboratory Results: 08/24/20 07:01 08/24/20 07:01 08/24/20 08/25/20 12:48 06:09 Total Bilirubin 5.8 H AST 282 H Alkaline Phosphatase 292 H Total Protein 4.9 L Albumin 2.6 L Stool for White Cells NO WBCs SEEN Impressions: Abdomen/Pelvis CT 08/22/20 00:00 IMPRESSION: 1. The patient's known rectal neoplasm was better demonstrated on the MRI examination dated 01/25/2020. No IV or oral contrast was administered which limits evaluation of the rectum. 2. The previously described bilateral perirectal lymph nodes have resolved. Small calcification in the left perirectal region, may represent small calcified lymph node. 3. Additional stable findings as above. Chest CT 08/22/20 00:00 IMPRESSION: 1. New small bilateral pleural effusions and slight compressive atelectatic changes in the lower lobes, since the prior study dated 01/28/2020. 2. No other significant interval changes. Abdomen Ultrasound 08/24/20 00:00 IMPRESSION: Technical limitations. No definite biliary dilatation. 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, unspecified; R19.7 - Diarrhea, unspecified Is this a current diagnosis for this admission?: Yes Plan: Improving (2) LUCIA (acute kidney injury) Is this a current diagnosis for this admission?: Yes Plan: Improving (3) Rectal adenocarcinoma Is this a current diagnosis for this admission?: Yes Plan: No further therapy (4) Dehydration Is this a current diagnosis for this admission?: Yes Plan: Continue with light hydration (5) Liver dysfunction Is this a current diagnosis for this admission?: Yes Plan: Finally improving, watch over the weekend and see how he does by Friday - Time Time Spent with patient: 35 or more minutes
[2020-08-25] MEDS: POTASSIUM CHLORIDE 10 MEQ TABLET.ER PO SCH ×2 (09:44→17:02)
[2020-08-25] MEDS: MULTIVITAMIN TABLET PO SCH (09:44)
[2020-08-25] MEDS: MAGNESIUM OXIDE 400 MG TABLET PO SCH ×2 (09:45→17:02)
[2020-08-25] MEDS: METOPROLOL TARTRATE 25 MG TABLET PO SCH ×2 (09:45→21:52)
--- NOTE | 2020-08-25 14:04 | PDOC PROGRESS REPORT ---
Subjective Progress Note for:: 08/25/20 Subjective:: LING DENNIS is a 79 year old male with stage II rectal cancer receiving total neoadjuvant chemotherapy with Xeloda, oxaliplatin. Her last dose of Xeloda was about 14 days ago. He was admitted last week for a few days with severe dehydration and diarrhea. Diarrhea improved and he was discharged home but then diarrhea worsened again and he has returned to the ER. Unfortunately now, there is more electrolyte abnormalities with creatinine elevation, BUN is elevated, bilirubin and transaminases, alk phos all are elevated. 08/23/2020. No acute events overnight. Patient has had one semi-liquid bowel movement today, still feeling lethargic and fatigued otherwise denies any fever, chills, nausea, vomiting, abdominal pain or any urinary symptoms. 08/25/2020. Last night patient was found to be agitated , this morning patient comfortably sitting in in his bed in no apparent distress, sitting in bed in no apparent distress, when asked if he remembers why he was agitated last night he is stating that when he is not treated well, he gets agitated but does not elaborate how he was not treated well. Patient's diarrhea has resolved, denies any fever, chills, nausea, vomiting, diarrhea, constipation or enuresis. Liver enzymes are trending down. Possible discharge home tomorrow. Dr. Bocanegra from gastroenterology has been consulted and patient is pending Reason For Visit: DEHYDRATION,LUCIA,HYPOKALEMIA Physical Exam Vital Signs: Temp Pulse Resp BP Pulse Ox 97.9 F 65 18 127/72 H 98 08/25/20 11:09 08/25/20 11:09 08/25/20 11:09 08/25/20 11:09 08/25/20 11:09 Intake & Output 08/24/20 08/25/20 08/26/20 06:59 06:59 06:59 Intake Total 1750 900 Balance 1750 900 Weight 71.7 kg 71.7 kg 71.7 kg General appearance: PRESENT: no acute distress, well-developed, well-nourished Head exam: PRESENT: atraumatic, normocephalic Respiratory exam: PRESENT: clear to auscultation darvin. ABSENT: rales, rhonchi, wheezes Cardiovascular exam: PRESENT: RRR. ABSENT: diastolic murmur, rubs, systolic murmur GI/Abdominal exam: PRESENT: normal bowel sounds, soft. ABSENT: distended, guarding, mass, organolmegaly, rebound, tenderness Extremities exam: PRESENT: full ROM. ABSENT: calf tenderness, clubbing, pedal edema Results Laboratory Results: 08/24/20 07:01 08/24/20 07:01 08/24/20 08/25/20 12:48 06:09 Total Bilirubin 5.8 H AST 282 H Alkaline Phosphatase 292 H Total Protein 4.9 L Albumin 2.6 L Stool for White Cells NO WBCs SEEN Impressions: Abdomen/Pelvis CT 08/22/20 00:00 IMPRESSION: 1. The patient's known rectal neoplasm was better demonstrated on the MRI examination dated 01/25/2020. No IV or oral contrast was administered which limits evaluation of the rectum. 2. The previously described bilateral perirectal lymph nodes have resolved. Small calcification in the left perirectal region, may represent small calcified lymph node. 3. Additional stable findings as above. Chest CT 08/22/20 00:00 IMPRESSION: 1. New small bilateral pleural effusions and slight compressive atelectatic changes in the lower lobes, since the prior study dated 01/28/2020. 2. No other significant interval changes. Abdomen Ultrasound 08/24/20 00:00 IMPRESSION: Technical limitations. No definite biliary dilatation. 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 Possibly due to due to Xeloda is currently on hold. C. difficile negative. Does not seem to be infectious in etiology however stool culture, ova and parasite, stool WBC stool Gram stain pending. Continue fluid resuscitation guided by volume status, monitor electrolytes and replace as needed, once proven to be noninfectious can continue antidiarrheals. (2) Liver dysfunction Is this a current diagnosis for this admission?: Yes Plan: Unfortunately isoenzymes are still trending up. Not sure if this is due to chemotherapy or diarrhea. Patient does not have history of cirrhosis or hepatitis. CT abdomen is no acute changes, pending abdominal ultrasound. Dr. Bocanegra from gastroenterology have been consulted by oncologist. Monitor liver enzymes, continue treating underlying diarrhea, monitor vitals. (3) Low serum potassium level Is this a current diagnosis for this admission?: Yes Plan: Potassium level now nearly normal. Continue with oral supplementation. (4) Severe dehydration Is this a current diagnosis for this admission?: Yes Plan: Resolved. Fluids discontinued. (5) LUCIA (acute kidney injury) Is this a current diagnosis for this admission?: Yes Plan: Resolved - Time Time Spent with patient: 25-34 minutes Medications reviewed and adjusted accordingly: Yes Anticipated Discharge Disposition: Home, Self Care Anticipated Discharge Timeframe: within 48 hours
[2020-08-25] MEDS: TAMSULOSIN HCL 0.4 MG CAP.SR.24H PO SCH (17:02)
[2020-08-25] MEDS: LISINOPRIL 10 MG TABLET PO SCH (17:02)
[2020-08-25] MEDS: TRAMADOL HCL 50 MG TABLET PO PRN (18:09)
[2020-08-25] MEDS: ATORVASTATIN CALCIUM 20 MG TABLET PO SCH (21:52)
[2020-08-25] MEDS: ZOLPIDEM TARTRATE 5 MG TABLET PO PRN (21:57)
[2020-08-26] MEDS: HEPARIN SOD (PORCINE) 5,000 UNIT/ML 1 ML VIAL SUBCUT SCH ×3 (05:09→21:33)
[2020-08-26 06:37] LABS: HEPATITS B SURFACE ANTIGEN Negative (Negative)
[2020-08-26] MEDS: MULTIVITAMIN TABLET PO SCH (09:30)
[2020-08-26] MEDS: METOPROLOL TARTRATE 25 MG TABLET PO SCH ×2 (09:30→21:43)
[2020-08-26] MEDS: MAGNESIUM OXIDE 400 MG TABLET PO SCH (09:30)
[2020-08-26] MEDS: POTASSIUM CHLORIDE 10 MEQ TABLET.ER PO SCH ×2 (09:30→17:01)
[2020-08-26] MEDS: TRAMADOL HCL 50 MG TABLET PO PRN (09:36)
[2020-08-26 11:28] LABS: ALBUMIN 2.8 g/dL (3.5-5.0); ALKALINE PHOSPHATASE 283 U/L (38-126); ANION GAP 5 (5-19); ASPARTATE AMINO TRANSFERASE 236 U/L (17-59); BILIRUBIN,DIRECT 1.3 mg/dL (0.0-0.4); BILIRUBIN,TOTAL 3.4 mg/dL (0.2-1.3); BLOOD UREA NITROGEN 15 mg/dL (7-20); CALCIUM 9.2 mg/dL (8.4-10.2); CARBON DIOXIDE 24 mmol/L (22-30); CHLORIDE 105 mmol/L (98-107); GLUCOSE 104 mg/dL (75-110); POTASSIUM 5.5 mmol/L (3.6-5.0); TOTAL PROTEIN 5.4 g/dL (6.3-8.2)
--- NOTE | 2020-08-26 12:59 | PDOC PROGRESS REPORT ---
Subjective Progress Note for:: 08/26/20 Subjective:: Patient very anxious to go home. He states that he is feeling well. He took 2 walks yesterday and ambulates to the bathroom without assistance. He is eating and drinking well. No other concerns today, except his desire to go home. Reason For Visit: DEHYDRATION,LUCIA,HYPOKALEMIA Physical Exam Vital Signs: Temp Pulse Resp BP Pulse Ox 98.1 F 64 17 108/62 97 08/26/20 11:49 08/26/20 11:49 08/26/20 11:49 08/26/20 11:49 08/26/20 11:49 Intake & Output 08/25/20 08/26/20 08/27/20 06:59 06:59 06:59 Intake Total 900 Balance 900 Weight 71.7 kg 71.6 kg General appearance: PRESENT: no acute distress Head exam: PRESENT: normocephalic Eye exam: PRESENT: EOMI Respiratory exam: PRESENT: unlabored Extremities exam: ABSENT: pedal edema Musculoskeletal exam: PRESENT: ambulatory Neurological exam: PRESENT: alert, awake Psychiatric exam: PRESENT: appropriate affect Skin exam: PRESENT: normal color Results Laboratory Results: 08/24/20 07:01 08/26/20 10:56 08/26/20 10:56 Sodium 134.4 L Potassium 5.5 H Chloride 105 Carbon Dioxide 24 Anion Gap 5 BUN 15 Creatinine 1.00 Est GFR ( Amer) > 60 Glucose 104 Calcium 9.2 Total Bilirubin 3.4 H AST 236 H Alkaline Phosphatase 283 H Total Protein 5.4 L Albumin 2.8 L 08/24/20 12:48 Stool - Stool - Final 08/24/20 12:48 Stool - Stool Stool Culture - Final NO SALMONELLA, SHIGELLA, CAMPYLOBACTER, OR E.COLI [id number] RECOVERED. NEGATIVE FOR SHIGA TOXINS 1&2. Impressions: Abdomen/Pelvis CT 08/22/20 00:00 IMPRESSION: 1. The patient's known rectal neoplasm was better demonstrated on the MRI examination dated 01/25/2020. No IV or oral contrast was administered which limits evaluation of the rectum. 2. The previously described bilateral perirectal lymph nodes have resolved. Small calcification in the left perirectal region, may represent small calcified lymph node. 3. Additional stable findings as above. Chest CT 08/22/20 00:00 IMPRESSION: 1. New small bilateral pleural effusions and slight compressive atelectatic changes in the lower lobes, since the prior study dated 01/28/2020. 2. No other significant interval changes. Abdomen Ultrasound 08/24/20 00:00 IMPRESSION: Technical limitations. No definite biliary dilatation. Assessment & Plan - Diagnosis (1) Liver dysfunction Is this a current diagnosis for this admission?: Yes Plan: If tbili and LFTs continue to improve tomorrow, OK from my standpoint to discharge in AM. Follow-up with Dr. Ambriz. (2) Severe dehydration Is this a current diagnosis for this admission?: Yes Plan: Now resolved (3) Colorectal cancer, stage I Is this a current diagnosis for this admission?: Yes Plan: All treatment on hold currently - Time Time Spent with patient: Less than 15 minutes
[2020-08-26] MEDS ORDERED: CALCIUM GLUCONATE 1000 MG/10 ML INJ IV ONE (14:28)
--- NOTE | 2020-08-26 14:40 | PDOC PROGRESS REPORT ---
Subjective Progress Note for:: 08/26/20 Subjective:: LING DENNIS is a 79 year old male with stage II rectal cancer receiving total neoadjuvant chemotherapy with Xeloda, oxaliplatin. Her last dose of Xeloda was about 14 days ago. He was admitted last week for a few days with severe dehydration and diarrhea. Diarrhea improved and he was discharged home but then diarrhea worsened again and he has returned to the ER. Unfortunately now, there is more electrolyte abnormalities with creatinine elevation, BUN is elevated, bilirubin and transaminases, alk phos all are elevated. 08/23/2020. No acute events overnight. Patient has had one semi-liquid bowel movement today, still feeling lethargic and fatigued otherwise denies any fever, chills, nausea, vomiting, abdominal pain or any urinary symptoms. 08/25/2020. Last night patient was found to be agitated , this morning patient comfortably sitting in in his bed in no apparent distress, sitting in bed in no apparent distress, when asked if he remembers why he was agitated last night he is stating that when he is not treated well, he gets agitated but does not elaborate how he was not treated well. Patient's diarrhea has resolved, denies any fever, chills, nausea, vomiting, diarrhea, constipation or enuresis. Liver enzymes are trending down. Possible discharge home tomorrow. Dr. Bocanegra from gastroenterology has been consulted and patient is pending 08/26/2020. No acute events overnight. Patient had one episode of yesterday, was elicited with confused last night otherwise no acute events. Liver enzymes are trending down however not normal. Possible discharge home tomorrow. Reason For Visit: DEHYDRATION,LUCIA,HYPOKALEMIA Physical Exam Vital Signs: Temp Pulse Resp BP Pulse Ox 98.1 F 64 17 108/62 97 08/26/20 11:49 08/26/20 11:49 08/26/20 11:49 08/26/20 11:49 08/26/20 11:49 Intake & Output 08/25/20 08/26/20 08/27/20 06:59 06:59 06:59 Intake Total 900 Balance 900 Weight 71.7 kg 71.6 kg General appearance: PRESENT: no acute distress, well-developed, well-nourished Head exam: PRESENT: atraumatic, normocephalic Respiratory exam: PRESENT: clear to auscultation darvin. ABSENT: rales, rhonchi, wheezes GI/Abdominal exam: PRESENT: normal bowel sounds, soft. ABSENT: distended, guarding, mass, organolmegaly, rebound, tenderness Neurological exam: PRESENT: alert, awake, oriented to person, oriented to place, oriented to time, oriented to situation, CN II-XII grossly intact. ABSENT: motor sensory deficit Results Laboratory Results: 08/24/20 07:01 08/26/20 10:56 08/26/20 10:56 Sodium 134.4 L Potassium 5.5 H Chloride 105 Carbon Dioxide 24 Anion Gap 5 BUN 15 Creatinine 1.00 Est GFR ( Amer) > 60 Glucose 104 Calcium 9.2 Total Bilirubin 3.4 H AST 236 H Alkaline Phosphatase 283 H Total Protein 5.4 L Albumin 2.8 L 08/24/20 12:48 Stool - Stool - Final 08/24/20 12:48 Stool - Stool Stool Culture - Final NO SALMONELLA, SHIGELLA, CAMPYLOBACTER, OR E.COLI 0157 RECOVERED. NEGATIVE FOR SHIGA TOXINS 1&2. Impressions: Abdomen/Pelvis CT 08/22/20 00:00 IMPRESSION: 1. The patient's known rectal neoplasm was better demonstrated on the MRI examination dated 01/25/2020. No IV or oral contrast was administered which limits evaluation of the rectum. 2. The previously described bilateral perirectal lymph nodes have resolved. Small calcification in the left perirectal region, may represent small calcified lymph node. 3. Additional stable findings as above. Chest CT 08/22/20 00:00 IMPRESSION: 1. New small bilateral pleural effusions and slight compressive atelectatic changes in the lower lobes, since the prior study dated 01/28/2020. 2. No other significant interval changes. Abdomen Ultrasound 08/24/20 00:00 IMPRESSION: Technical limitations. No definite biliary dilatation. 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 Possibly due to due to Xeloda is currently on hold. C. difficile negative. Does not seem to be infectious in etiology however stool culture, ova and parasite, stool WBC stool Gram stain pending. Continue fluid resuscitation guided by volume status, monitor electrolytes and replace as needed, once proven to be noninfectious can continue antidiarrheals. (2) Liver dysfunction Is this a current diagnosis for this admission?: Yes Plan: Trending down. Not sure if this is due to chemotherapy or diarrhea. Patient does not have history of cirrhosis or hepatitis. CT abdomen is no acute changes, pending abdominal ultrasound. Dr. Bocanegra from gastroenterology have been consulted by oncologist. Monitor liver enzymes, continue treating underlying diarrhea, monitor vitals. (3) Low serum potassium level Is this a current diagnosis for this admission?: Yes Plan: Likely due to GI losses. Noted to be hyperkalemic today. DC supplemental potassium. Hyperkalemia protocol. Potassium level tomorrow. (4) Severe dehydration Is this a current diagnosis for this admission?: Yes Plan: Resolved. Fluids discontinued. (5) LUCIA (acute kidney injury) Is this a current diagnosis for this admission?: Yes Plan: Resolved - Time Time Spent with patient: 25-34 minutes Medications reviewed and adjusted accordingly: Yes Anticipated Discharge Disposition: Home, Self Care Anticipated Discharge Timeframe: within 24 hours
[2020-08-26] MEDS ORDERED: CALCIUM GLUCONATE 1 GM/NS 50 ML RTU IV ONE (15:15)
[2020-08-26 16:31] LABS: HEPATITIS C VIRUS ANTIBODY <0.1 s/co ratio (0.0-0.9)
[2020-08-26] MEDS: TAMSULOSIN HCL 0.4 MG CAP.SR.24H PO SCH (17:00)
[2020-08-26] MEDS: LISINOPRIL 10 MG TABLET PO SCH (17:00)
[2020-08-26] MEDS ORDERED: TEMAZEPAM 7.5 MG CAPSULE PO PRN (17:51)
[2020-08-26] MEDS: ATORVASTATIN CALCIUM 20 MG TABLET PO SCH (21:41)
[2020-08-27] MEDS: HEPARIN SOD (PORCINE) 5,000 UNIT/ML 1 ML VIAL SUBCUT SCH (05:01)
[2020-08-27 07:26] LABS: ALBUMIN 2.6 g/dL (3.5-5.0); ALKALINE PHOSPHATASE 245 U/L (38-126); ANION GAP 8 (5-19); ASPARTATE AMINO TRANSFERASE 192 U/L (17-59); BILIRUBIN,DIRECT 1.1 mg/dL (0.0-0.4); BILIRUBIN,TOTAL 2.5 mg/dL (0.2-1.3); BLOOD UREA NITROGEN 15 mg/dL (7-20); CARBON DIOXIDE 22 mmol/L (22-30); CHLORIDE 106 mmol/L (98-107); GLUCOSE 93 mg/dL (75-110); POTASSIUM 4.7 mmol/L (3.6-5.0); TOTAL PROTEIN 5.2 g/dL (6.3-8.2)
[2020-08-27 08:40] VITALS: BP 126/81
[2020-08-27] MEDS: MULTIVITAMIN TABLET PO SCH (09:23)
[2020-08-27] MEDS: METOPROLOL TARTRATE 25 MG TABLET PO SCH (09:23)
--- NOTE | 2020-08-27 16:36 | PDOC DISCHARGE SUMMARY ---
Impression - Admit/DC Date/PCP Admission Date/Primary Care Provider: 08/19/20 12:54 JOCELYNE MCDERMOTT PA-C Discharge Date: 08/27/20 - Discharge Diagnosis (1) Diarrhea Is this a current diagnosis for this admission?: Yes (2) Liver dysfunction Is this a current diagnosis for this admission?: Yes (3) Low serum potassium level Is this a current diagnosis for this admission?: Yes (4) Severe dehydration Is this a current diagnosis for this admission?: Yes (5) LUCIA (acute kidney injury) Is this a current diagnosis for this admission?: Yes - Additional Information Resuscitation Status: Full Code Discharge Diet: As Tolerated Discharge Activity: Activity As Tolerated, Balance Activity w/Rest Referrals: MARGE LEE MD [ACTIVE STAFF] - (In 2 weeks. Please call office to arrange. ) JOCELYNE MCDERMOTT PA-C [Primary Care Provider] - Follow up as needed Prescriptions: Loperamide HCl [Loperamide] 2 mg PO QIDP PRN 10 Days #40 tablet PRN Reason: Home Medications: Multivitamin [Multiple Vitamins] 1 each PO DAILY 04/25/13 Rosuvastatin Calcium [Crestor 10 mg Tablet] 10 mg PO QPM 04/25/13 Lisinopril 20 mg PO QPM 08/14/20 Tamsulosin HCl [Flomax 0.4 mg Cap.sr] 0.4 mg PO QPM 08/14/20 Vit A/Vit C/Vit E/Zinc/Copper [Preservision Areds Tablet] 1 each PO BID 08/14/20 Zolpidem Tartrate [Ambien] 10 mg PO QHS 08/14/20 Loperamide HCl [Loperamide] 2 mg PO QIDP PRN 10 Days #40 tablet 08/27/20 History of Present Illiness History of Present Illness: LING DENNIS is a 79 year old male with stage II rectal cancer receiving total neoadjuvant chemotherapy with Xeloda, oxaliplatin. Her last dose of Xeloda was about 14 days ago. He was admitted last week for a few days with severe dehydration and diarrhea. Diarrhea improved and he was discharged home but then diarrhea worsened again and he has returned to the ER. Unfortunately now, there is more electrolyte abnormalities with creatinine elevation, BUN is elevated, bilirubin and transaminases, alk phos all are elevated. Hospital Course Hospital Course: (1) Diarrhea Resolved. Possibly due to due to Xeloda is currently on hold. C. difficile negative. Stool WBC, stool culture, stool white blood cell all negative. Started on fluid resuscitation guided by volume status, monitor electrolytes and replace as needed, and started on antidiarrheals. (2) Liver dysfunction Moderate improvement. Not back to normal. Not sure if this is due to chemotherapy or diarrhea. Patient does not have history of cirrhosis or hepatitis. CT abdomen is no acute changes, pending abdominal ultrasound. Dr. Bocanegra from gastroenterology have been consulted by oncologist. Work-up by gastroenterology pending at the time of discharge. Patient was encouraged to follow-up with Dr. Bocanegra and Dr. Ambriz as outpatient. (3) Low serum potassium level Resolved. Likely due to GI losses. (4) Severe dehydration Resolved. Euvolemic and normotensive at the time of discharge. (5) LUCIA (acute kidney injury) Resolved Physical Exam Vital Signs: Temp Pulse Resp BP Pulse Ox 98.3 F 103 H 16 126/81 H 95 08/27/20 08:37 08/27/20 08:37 08/27/20 08:37 08/27/20 08:37 08/27/20 08:37 Intake & Output 08/26/20 08/27/20 08/28/20 06:59 06:59 06:59 Intake Total 900 970 Balance 900 970 Weight 71.6 kg 71.6 kg General appearance: PRESENT: no acute distress, well-developed, well-nourished Head exam: PRESENT: atraumatic, normocephalic Neck exam: ABSENT: carotid bruit, JVD, lymphadenopathy, thyromegaly Respiratory exam: PRESENT: clear to auscultation darvin. ABSENT: rales, rhonchi, wheezes Cardiovascular exam: PRESENT: RRR. ABSENT: diastolic murmur, rubs, systolic murmur GI/Abdominal exam: PRESENT: normal bowel sounds, soft. ABSENT: distended, guarding, mass, organolmegaly, rebound, tenderness Neurological exam: PRESENT: alert, awake, oriented to person, oriented to place, oriented to time, oriented to situation, CN II-XII grossly intact. ABSENT: motor sensory deficit Skin exam: PRESENT: dry, intact, warm. ABSENT: cyanosis, rash Results Laboratory Results: WBC 3.5 10^3/uL (4.0-10.5) L 08/24/20 07:01 RBC 3.44 10^6/uL (4.35-5.55) L 08/24/20 07:01 Hgb 10.9 g/dL (13.5-17.0) L 08/24/20 07:01 Hct 31.1 % (37.9-51.0) L 08/24/20 07:01 MCV 91 fl (80-97) 08/24/20 07:01 MCH 31.8 pg (27.0-33.4) 08/24/20 07:01 MCHC 35.2 g/dL (32.0-36.0) 08/24/20 07:01 RDW 15.9 % (11.5-14.0) H 08/24/20 07:01 Plt Count 126 10^3/uL (150-450) L 08/24/20 07:01 Lymph % (Auto) 9.5 % (13-45) L 08/19/20 10:50 [place] % (Auto) 17.1 % (3-13) H 08/19/20 10:50 Eos % (Auto) 0.8 % (0-6) 08/19/20 10:50 Baso % (Auto) 0.4 % (0-2) 08/19/20 10:50 Absolute Neuts (auto) 2.4 10^3/uL (1.7-8.2) 08/19/20 10:50 Absolute Lymphs (auto) 0.3 10^3/uL (0.5-4.7) L 08/19/20 10:50 Absolute Monos (auto) 0.6 10^3/uL (0.1-1.4) 08/19/20 10:50 Absolute Eos (auto) 0.0 10^3/uL (0.0-0.6) 08/19/20 10:50 Absolute Basos (auto) 0.0 10^3/uL (0.0-0.2) 08/19/20 10:50 Seg Neutrophils % 72.2 % (42-78) 08/19/20 10:50 PT 16.1 SEC (11.4-15.4) H 08/25/20 06:09 INR 1.27 08/25/20 06:09 Sodium 136.3 mmol/L (137-145) L 08/27/20 06:25 Potassium 4.7 mmol/L (3.6-5.0) 08/27/20 06:25 Chloride 106 mmol/L (98-107) 08/27/20 06:25 Carbon Dioxide 22 mmol/L (22-30) 08/27/20 06:25 Anion Gap 8 (5-19) 08/27/20 06:25 BUN 15 mg/dL (7-20) 08/27/20 06:25 Creatinine 1.05 mg/dL (0.52-1.25) 08/27/20 06:25 Est GFR ( Amer) > 60 (>60) 08/27/20 06:25 Est GFR (MDRD) Non-Af > 60 (>60) 08/27/20 06:25 Glucose 93 mg/dL (75-110) 08/27/20 06:25 Calcium 9.0 mg/dL (8.4-10.2) 08/27/20 06:25 Phosphorus 2.5 mg/dL (2.5-4.5) 08/23/20 12:36 Magnesium 1.9 mg/dL (1.6-2.3) 08/27/20 06:25 Total Bilirubin 2.5 mg/dL (0.2-1.3) H 08/27/20 06:25 Direct Bilirubin 1.1 mg/dL (0.0-0.4) H 08/27/20 06:25 Neonat Total Bilirubin Not Reportable 08/27/20 06:25 Neonat Direct Bilirubin Not Reportable 08/27/20 06:25 Neonat Indirect Bili Not Reportable 08/27/20 06:25 AST 192 U/L (17-59) H 08/27/20 06:25 ALT 227 U/L (<50) H 08/27/20 06:25 Alkaline Phosphatase 245 U/L (38-126) H 08/27/20 06:25 Total Protein 5.2 g/dL (6.3-8.2) L 08/27/20 06:25 Albumin 2.6 g/dL (3.5-5.0) L 08/27/20 06:25 Lipase 210.4 U/L (23-300) 08/19/20 10:50 Urine Color JAIDA 08/19/20 17:18 Urine Appearance SLIGHTLY-CLOUDY 08/19/20 17:18 Urine pH 5.0 (5.0-9.0) 08/19/20 17:18 Ur Specific [place] 1.023 08/19/20 17:18 Urine Protein 100 mg/dL (NEGATIVE) H 08/19/20 17:18 Urine Glucose (UA) NEGATIVE mg/dL (NEGATIVE) 08/19/20 17:18 Urine Ketones NEGATIVE mg/dL (NEGATIVE) 08/19/20 17:18 Urine Blood SMALL (NEGATIVE) H 08/19/20 17:18 Urine Nitrite NEGATIVE (NEGATIVE) 08/19/20 17:18 Urine Bilirubin NEGATIVE (NEGATIVE) 08/19/20 17:18 Urine Urobilinogen NEGATIVE mg/dL (<2.0) 08/19/20 17:18 Ur Leukocyte Esterase NEGATIVE (NEGATIVE) 08/19/20 17:18 Urine WBC (Auto) 8 /HPF 08/19/20 17:18 Urine RBC (Auto) 3 /HPF 08/19/20 17:18 U Hyaline Cast (Auto) 12 /LPF 08/19/20 17:18 Urine Bacteria (Auto) TRACE /HPF 08/19/20 17:18 Squamous Epi Cells Auto 2 /HPF 08/19/20 17:18 Urine Mucus (Auto) MOD /LPF 08/19/20 17:18 Urine Ascorbic Acid NEGATIVE (NEGATIVE) 08/19/20 17:18 Stool for White Cells NO WBCs SEEN 08/24/20 12:48 Stl C. Difficile GDH Ag NEGATIVE (NEGATIVE) 08/19/20 13:20 Stl C.difficile Tox A&B NEGATIVE (NEGATIVE) 08/19/20 13:20 NAVJOT (Multiplex) Negative (Negative) 08/25/20 06:09 Hepatitis A IgM Ab Negative (Negative) 08/25/20 06:09 Hep Bs Antigen Negative (Negative) 08/25/20 06:09 Hep B Core IgM Ab Negative (Negative) 08/25/20 06:09 Hepatitis C Antibody <0.1 s/co ratio (0.0-0.9) 08/25/20 06:09 Impressions: Abdomen/Pelvis CT 08/22/20 00:00 IMPRESSION: 1. The patient's known rectal neoplasm was better demonstrated on the MRI examination dated 01/25/2020. No IV or oral contrast was administered which limits evaluation of the rectum. 2. The previously described bilateral perirectal lymph nodes have resolved. Small calcification in the left perirectal region, may represent small calcified lymph node. 3. Additional stable findings as above. Chest CT 08/22/20 00:00 IMPRESSION: 1. New small bilateral pleural effusions and slight compressive atelectatic changes in the lower lobes, since the prior study dated 01/28/2020. 2. No other significant interval changes. Abdomen Ultrasound 08/24/20 00:00 IMPRESSION: Technical limitations. No definite biliary dilatation. Stroke Is this a Stroke Patient?: No Acute Heart Failure Is this a Heart Failure Patient?: No
== END 2020-08-27 09:28 | disposition home health service (06) | DRG 392 ==
LOC: ER 09:49 → EH 12:54 → 4S 17:54
PROVIDERS: ADMIT Family Medicine; ATTEND Internal Medicine
DX: K90.9 Intestinal malabsorption, unspecified (principal); K52.1 Toxic gastroenteritis and colitis; N17.9 Acute kidney failure, unspecified; C20 Malignant neoplasm of rectum; E86.0 Dehydration; K76.89 Other specified diseases of liver; E87.6 Hypokalemia; E78.5 Hyperlipidemia, unspecified; I10 Essential (primary) hypertension; T45.1X5A Adverse effect of antineoplastic and immunosuppressive drugs, initial encounter; R19.7 Diarrhea, unspecified; Y92.9 Unspecified place or not applicable; Z87.891 Personal history of nicotine dependence; Z79.899 Other long term (current) drug therapy; Z78.1 Physical restraint status
CPT/HCPCS: 36415; 70450; 71046; 71250; 74176; 76700; 80048; 80053; 80074; 80076; 81001; 83690; 83735; 84100; 85025; 85027; 85610; 85730; 86038; 86235; 86256; 87045; 87086; 87088; 87186; 87205; 87324; 87449; 89055; 93005; 93010; 93976; 96361; 96365; 96368; 96374; 99285; J0610; G0378; J1630; J1644; J2405; J3475; J3480; J3490; J7030; J7120; S0028